=== PATIENT | female | born 1980 ===

== ENCOUNTER 2020-03-07 16:28 | Emergency (ER) | payer MEDICAID, SELFPAY ==
--- NOTE | 2020-03-07 | US_ITS ---
EXAMINATION: PELVIC ULTRASOUND CLINICAL INFORMATION: Heavy vaginal bleeding. COMPARISON: 11/26/2019 TECHNIQUE: Both transabdominal and endovaginal scanning was performed. FINDINGS: An anteverted uterus measures 9.7 x 3.9 x 4.5 cm. A regular homogeneous endometrium is seen measuring 0.5 cm. No uterine masses are present. Nabothian cysts are present in the cervix. The right ovary measures 3.1 x 2.8 x 3.8 cm for a volume of 17 mL and contains a 2.7 x 2.3 x 2.5 cm cyst. The left ovary measures 2.8 x 2.9 x 2.3 cm for a volume of 10 mL and contains a 1.9 x 1.6 x 2.0 cm cyst. No free intraperitoneal fluid is seen. IMPRESSION: Negative exam. Bilateral ovarian cysts.
[2020-03-07 16:55] VITALS: BP 131/47; PULSE 76; RESP 16; TEMP 36.7; O2SAT 98; BMI 41.3
--- NOTE | 2020-03-07 17:23 | ECG_ITS ---
Test Reason : BLEEDING Blood Pressure : / mmHG Vent. Rate : 081 BPM Atrial Rate : 081 BPM P-R Int : 174 ms QRS Dur : 074 ms QT Int : 398 ms P-R-T Axes : 021 059 048 degrees QTc Int : 462 ms Normal sinus rhythm with 1st degree A-V block Abnormal ECG When compared with ECG of 14-FEB-2019 21:07, Normal sinus rhythm with 1st degree A-V block is now Present Referred By: Alyssa Infante Electronically Signed By:CARY LEIVA
--- NOTE | 2020-03-07 17:30 | ED.FEMALEGU ---
HPI - Female Genitourinary General Chief complaint: Vaginal Bleeding <KARYNA Nguyen - Last Filed: 03/07/20 20:03> Stated complaint: VAGINAL BLEEDING/DIZZINESS <KARYNA Nguyen - Last Filed: 03/07/20 20:03> Time Seen by Provider: 03/07/20 17:22 <KARYNA Nguyen - Last Filed: 03/07/20 20:03> Source: patient <KARYNA Nguyen Last Filed: 03/07/20 20:03> Mode of arrival: ambulatory <KARYNA Nguyen Last Filed: 03/07/20 20:03> Limitations: no limitations <KARYNA Nguyen Last Filed: 03/07/20 20:03> History of Present Illness HPI Narrative: 40 yo female presenting with heavy vaginal bleeding during her menses for the last 2 months. She was getting her period regularly and now it is more frequent, more painful and heavier. Denies chance of . Reports dizziness at times and passing clots. <KARYNA Nguyen Last Filed: 03/07/20 20:03> Related Data Allergies/Adverse reactions: Allergies Allergy/AdvReac Type Severity Reaction Status Date / Time No Known Allergies Allergy Verified 03/07/20 16:54 [No Known Allergies*] <KARYNA Nguyen Last Filed: 03/07/20 20:03> Review of Systems Review of Systems: Constitutional: No Fever, No Chills ENT/Mouth: No sore throat, No Rhinorrhea, No Swallowing Difficulty Eyes: No Eye Pain, No Swelling, No Redness Cardiovascular: No Chest Pain or SOB, No Orthopnea, positive Edema Respiratory: No Cough, No Sputum, No Wheezing, positive dyspnea Gastrointestinal: No Nausea, No Vomiting, No Diarrhea, No abdominal Pain, No Hematochezia, No Melena Genitourinary: No Dysuria, No Urinary Frequency, No Hematuria, +heavy periods Musculoskeletal: No joint pain, No Myalgias Skin: No Skin Lesions, No rash Neuro: No Weakness, No Numbness, No Headache + occasional dizziness Psych: No Anxiety/Panic, No Depression Heme/Lymph: No Bruising, No Lymphadenopathy Endocrine: No Polyuria, No Polydipsia All other 10 point ROS are negative. <KARYNA Nguyen - Last Filed: 03/07/20 20:03> [facility] Past Medical History Medical History: Medical History (Updated 03/08/20 @ 00:01 by Crissy Hardy) Anemia Asthma delivery delivered Migraine <KARYNA Nguyen - Last Filed: 03/07/20 20:03> Surgical History: Surgical History (Updated 03/07/20 @ 17:01 by Dee Mccain) H/O tubal ligation <KARYNA Nguyen - Last Filed: 03/07/20 20:03> Social History Social History: Social History Alcohol intake: never Smoking Status: Current every day smoker Use of substances other than those prescribed or required for medical reasons: No Advance Directives: No Advance Directives Information Provided: No <KARYNA Nguyen - Last Filed: 03/07/20 20:03> Physical Exam Vital Signs and I&O and Narrative: Vital Signs and I&O: Vital Signs Temp 98.1 F 03/07/20 16:55 Pulse 77 03/07/20 19:46 Resp 16 03/07/20 19:46 BP 131/61 03/07/20 19:46 Pulse Ox 98 03/07/20 19:46 Intake & Output 03/07/20 03/07/20 03/08/20 06:59 18:59 06:59 Intake Total 1000 / 1000 Balance 1000 / 1000 Weight 92.986 kg Intake: Intake, IV Amoun t 1000 / 1000 0.9 % Sodium C hloride 1,000 ml 1000 / 1000 @ 999 mls/hr I VCONT .Q1H1M [facility] Rx#:[id number] Body Mass Index 41.3 Appearance: Alert. Oriented X3. No acute distress. Eyes: Pupils equal, round and reactive to light. ENT: Pharynx normal. Neck: Normal inspection. Neck supple. CVS: Normal heart rate and rhythm. Pulses normal. Respiratory: No respiratory distress. Breath sounds normal. Abdomen: Soft and nontender. exam deferred - patient declined Skin: Skin warm and dry. Normal skin color. Normal skin turgor. Extremities: No lower extremity edema. No lower extremity edema. Neuro: Oriented X 3. No motor deficit. No sensory deficit. <KARYNA Nguyen - Last Filed: 03/07/20 20:03> Vital Signs and I&O: Vital Signs Temp 98.1 F 03/07/20 16:55 Pulse 77 03/07/20 19:46 Resp 16 03/07/20 19:46 BP 131/61 03/07/20 19:46 Pulse Ox 98 03/07/20 19:46 Intake & Output 03/07/20 03/07/20 03/08/20 06:59 18:59 06:59 Intake Total 1000 / 1000 Balance 1000 / 1000 Weight 92.986 kg Intake: Intake, IV Amoun t 1000 / 1000 0.9 % Sodium C hloride 1,000 ml 1000 / 1000 @ 999 mls/hr I VCONT .Q1H1M [facility] Rx#:[id number] Body Mass Index 41.3 <William Fowler DO - Last Filed: 03/08/20 02:11> Course Course Hospital Course: patient presents with menorrhagia and occasional dizziness when standing. [facility] is in [place], has not seem in some time. No syncope, no vaginal discharge. Pelvic/TV U/S was normal H/H normal. EKG normal. Will refer patient to [facility] here. Stable for d/c <KARYNA Nguyen - Last Filed: 03/07/20 20:03> MDM - Female Genitourinary Differential Diagnosis Differential diagnosis: Likely urinary tract infection, ovarian cyst, cystitis and dysmenorrhea <KARYNA Nguyen - Last Filed: 03/07/20 20:03> Medical Records Attestation: I reviewed the patient's medical records. <KARYNA Nguyen - Last Filed: 03/07/20 20:03> Lab Data Attestation: I reviewed the patient's lab results. <KARYNA Nguyen - Last Filed: 03/07/20 20:03> Result diagrams: : 03/07/20 18:37 03/07/20 18:37 <KARYNA Nguyen - Last Filed: 03/07/20 20:03> Labs: Lab Results 03/07/20 03/07/20 03/07/20 Range/Units 18:37 18:37 18:37 WBC 6.7 (4.8-10.8) X10*3/uL RBC 3.85 L (4.20-5.50) X10*6/uL Hgb 12.2 (12.0-16.0) g/dl Hct 37.8 (37-47) % MCV 98.2 H (80-98) fL MCH 31.7 (27.0-33.0) pg MCHC 32.3 (31.0-35.0) g/dl RDW 13.3 (11.0-16.0) % Plt Count 232 (160-400) X10*3/uL MPV 11.2 (9.4-12.3) fL Immature Gran % (Auto) 0.6 H (0.0-0.4) % Neut % (Auto) 66.6 (45-73) % Lymph % (Auto) 23.6 (20-40) % [place] % (Auto) 6.8 (2-11) % Eos % (Auto) 2.1 (0-4) % Baso % (Auto) 0.3 (0-2) % Neut # (Auto) 4.5 (2.0-8.3) X10*3/uL Lymph # (Auto) 1.6 (1.2-4.9) X10*3/uL [place] # (Auto) 0.5 (0.1-1.2) X10*3/uL Eos # (Auto) 0.1 (0.0-0.4) X10*3/uL Baso # (Auto) 0.0 (0.0-0.2) X10*3/uL Abs Immat Gran (auto) 0.04 H (0.00-0.03) X10*3/uL Absolute Nucleated RBC 0.000 (0.0-0.012) X10*3/uL Nucleated RBC % (auto) 0.0 (0.0-0.2) /100WBC PT 10.7 L (10.8-13.0) SEC INR 0.9 (0.9-1.1) APTT 33.2 (24.1-38.0) SEC Sodium 139 (135-145) mmol/L Potassium 4.1 (3.3-5.1) mmol/l Chloride 108 (96-108) mmol/L Carbon Dioxide 24 (22-29) mmol/L Anion Gap 11 L (12-20) BUN 10 (9-16) mg/dL Creatinine 0.83 (0.5-1.4) mg/dL Estim Creat Clear Calc 88.0 Estimated GFR > 60 Random Glucose 106 (60-115) mg/dL Calcium 8.6 (8.4-10.2) mg/dL Total Bilirubin 0.2 (0.0-1.0) mg/dL Direct Bilirubin < 0.2 (0.0-0.5) mg/dL AST 11 (5-31) U/L ALT 16 (0-31) U/L Alkaline Phosphatase 63 (39-117) U/L Total Protein 6.5 (6.5-8.0) g/dL Albumin 3.8 (3.5-5.0) g/dL Beta HCG, Quant < 2 mIU/mL Blood Type Antibody Screen 03/07/20 Range/Units 18:37 WBC (4.8-10.8) X10*3/uL RBC (4.20-5.50) X10*6/uL Hgb (12.0-16.0) g/dl Hct (37-47) % MCV (80-98) fL MCH (27.0-33.0) pg MCHC (31.0-35.0) g/dl RDW (11.0-16.0) % Plt Count (160-400) X10*3/uL MPV (9.4-12.3) fL Immature Gran % (Auto) (0.0-0.4) % Neut % (Auto) (45-73) % Lymph % (Auto) (20-40) % [place] % (Auto) (2-11) % Eos % (Auto) (0-4) % Baso % (Auto) (0-2) % Neut # (Auto) (2.0-8.3) X10*3/uL Lymph # (Auto) (1.2-4.9) X10*3/uL [place] # (Auto) (0.1-1.2) X10*3/uL Eos # (Auto) (0.0-0.4) X10*3/uL Baso # (Auto) (0.0-0.2) X10*3/uL Abs Immat Gran (auto) (0.00-0.03) X10*3/uL Absolute Nucleated RBC (0.0-0.012) X10*3/uL Nucleated RBC % (auto) (0.0-0.2) /100WBC PT (10.8-13.0) SEC INR (0.9-1.1) APTT (24.1-38.0) SEC Sodium (135-145) mmol/L Potassium (3.3-5.1) mmol/l Chloride (96-108) mmol/L Carbon Dioxide (22-29) mmol/L Anion Gap (12-20) BUN (9-16) mg/dL Creatinine (0.5-1.4) mg/dL Estim Creat Clear Calc Estimated GFR Random Glucose (60-115) mg/dL Calcium (8.4-10.2) mg/dL Total Bilirubin (0.0-1.0) mg/dL Direct Bilirubin (0.0-0.5) mg/dL AST (5-31) U/L ALT (0-31) U/L Alkaline Phosphatase (39-117) U/L Total Protein (6.5-8.0) g/dL Albumin (3.5-5.0) g/dL Beta HCG, Quant mIU/mL Blood Type A Positive Antibody Screen NEGATIVE <KARYNA Nguyne - Last Filed: 03/07/20 20:03> Lab Results 03/07/20 03/07/20 03/07/20 Range/Units 18:37 18:37 18:37 WBC 6.7 (4.8-10.8) X10*3/uL RBC 3.85 L (4.20-5.50) X10*6/uL Hgb 12.2 (12.0-16.0) g/dl Hct 37.8 (37-47) % MCV 98.2 H (80-98) fL MCH 31.7 (27.0-33.0) pg MCHC 32.3 (31.0-35.0) g/dl RDW 13.3 (11.0-16.0) % Plt Count 232 (160-400) X10*3/uL MPV 11.2 (9.4-12.3) fL Immature Gran % (Auto) 0.6 H (0.0-0.4) % Neut % (Auto) 66.6 (45-73) % Lymph % (Auto) 23.6 (20-40) % [place] % (Auto) 6.8 (2-11) % Eos % (Auto) 2.1 (0-4) % Baso % (Auto) 0.3 (0-2) % Neut # (Auto) 4.5 (2.0-8.3) X10*3/uL Lymph # (Auto) 1.6 (1.2-4.9) X10*3/uL [place] # (Auto) 0.5 (0.1-1.2) X10*3/uL Eos # (Auto) 0.1 (0.0-0.4) X10*3/uL Baso # (Auto) 0.0 (0.0-0.2) X10*3/uL Abs Immat Gran (auto) 0.04 H (0.00-0.03) X10*3/uL Absolute Nucleated RBC 0.000 (0.0-0.012) X10*3/uL Nucleated RBC % (auto) 0.0 (0.0-0.2) /100WBC PT 10.7 L (10.8-13.0) SEC INR 0.9 (0.9-1.1) APTT 33.2 (24.1-38.0) SEC Sodium 139 (135-145) mmol/L Potassium 4.1 (3.3-5.1) mmol/l Chloride 108 (96-108) mmol/L Carbon Dioxide 24 (22-29) mmol/L Anion Gap 11 L (12-20) BUN 10 (9-16) mg/dL Creatinine 0.83 (0.5-1.4) mg/dL Estim Creat Clear Calc 88.0 Estimated GFR > 60 Random Glucose 106 (60-115) mg/dL Calcium 8.6 (8.4-10.2) mg/dL Total Bilirubin 0.2 (0.0-1.0) mg/dL Direct Bilirubin < 0.2 (0.0-0.5) mg/dL AST 11 (5-31) U/L ALT 16 (0-31) U/L Alkaline Phosphatase 63 (39-117) U/L Total Protein 6.5 (6.5-8.0) g/dL Albumin 3.8 (3.5-5.0) g/dL Beta HCG, Quant < 2 mIU/mL Blood Type Antibody Screen 03/07/20 Range/Units 18:37 WBC (4.8-10.8) X10*3/uL RBC (4.20-5.50) X10*6/uL Hgb (12.0-16.0) g/dl Hct (37-47) % MCV (80-98) fL MCH (27.0-33.0) pg MCHC (31.0-35.0) g/dl RDW (11.0-16.0) % Plt Count (160-400) X10*3/uL MPV (9.4-12.3) fL Immature Gran % (Auto) (0.0-0.4) % Neut % (Auto) (45-73) % Lymph % (Auto) (20-40) % [place] % (Auto) (2-11) % Eos % (Auto) (0-4) % Baso % (Auto) (0-2) % Neut # (Auto) (2.0-8.3) X10*3/uL Lymph # (Auto) (1.2-4.9) X10*3/uL [place] # (Auto) (0.1-1.2) X10*3/uL Eos # (Auto) (0.0-0.4) X10*3/uL Baso # (Auto) (0.0-0.2) X10*3/uL Abs Immat Gran (auto) (0.00-0.03) X10*3/uL Absolute Nucleated RBC (0.0-0.012) X10*3/uL Nucleated RBC % (auto) (0.0-0.2) /100WBC PT (10.8-13.0) SEC INR (0.9-1.1) APTT (24.1-38.0) SEC Sodium (135-145) mmol/L Potassium (3.3-5.1) mmol/l Chloride (96-108) mmol/L Carbon Dioxide (22-29) mmol/L Anion Gap (12-20) BUN (9-16) mg/dL Creatinine (0.5-1.4) mg/dL Estim Creat Clear Calc Estimated GFR Random Glucose (60-115) mg/dL Calcium (8.4-10.2) mg/dL Total Bilirubin (0.0-1.0) mg/dL Direct Bilirubin (0.0-0.5) mg/dL AST (5-31) U/L ALT (0-31) U/L Alkaline Phosphatase (39-117) U/L Total Protein (6.5-8.0) g/dL Albumin (3.5-5.0) g/dL Beta HCG, Quant mIU/mL Blood Type A Positive Antibody Screen NEGATIVE <William Fowler DO - Last Filed: 03/08/20 02:11> ECG Data Attestation: I personally reviewed and interpreted this ECG as follows: <KARYNA Nguyen - Last Filed: 03/07/20 20:03> ECG interpretation date: 03/07/20 <KARYNA Nguyen - Last Filed: 03/07/20 20:03> Interpretation: normal sinus rhythm, HR 81 bpm, normal axis, normal PA interval. <KARYNA Nguyen - Last Filed: 03/07/20 20:03> Discharge Plan Discharge Clinical Impression: Menometrorrhagia <KARYNA Nguyen - Last Filed: 03/07/20 20:03> Patient Disposition: Home, Self-Care <KARYNA Nguyen - Last Filed: 03/07/20 20:03> Instructions: Menorrhagia (ED) <KARYNA Ngyuen - Last Filed: 03/07/20 20:03> Additional Instructions: Come back to the ER if you develop chest pain, shortness of breath, fainting, or uncontrolled bleeding. <KARYNA Nguyen - Last Filed: 03/07/20 20:03> Referrals: Haresh Cheng MD [Physician] - 2 days <KARYNA Nguyen - Last Filed: 03/07/20 20:03> Interventions: ED Discharge Assessment Last Done: 03/07/20 20:44 <KARYNA Nguyen - Last Filed: 03/07/20 20:03> Discharge Date/Time: 03/07/20 20:44 <KARYNA Nguyen - Last Filed: 03/07/20 20:03>
[2020-03-07] MEDS: Ketorolac Tromethamine 30 MG/ML VIAL IVPUSH (17:45)
[2020-03-07] MEDS: 0.9 % Sodium Chloride 1,000 ML 999 ML IVCONT (17:45)
[2020-03-07 18:48] LABS: MANUAL DIFF FLAG NO
[2020-03-07 18:50] LABS: Basophils Percent Auto 0.3 % (0-2); Eosinophils Absolute Auto 0.1 X10*3/uL (0.0-0.4); Eosinophils Percent Auto 2.1 % (0-4); Hematocrit 37.8 % (37-47); Hemoglobin 12.2 g/dl (12.0-16.0); Imm Gran Abs Auto 0.04 X10*3/uL (0.00-0.03); Imm Gran Pct Auto 0.6 % (0.0-0.4); Lymphocytes Absolute Auto 1.6 X10*3/uL (1.2-4.9); Lymphocytes Percent Auto 23.6 % (20-40); Mean Corpuscular HGB Conc 32.3 g/dl (31.0-35.0); Mean Corpuscular Hemoglobin 31.7 pg (27.0-33.0); Mean Corpuscular Volume 98.2 fL (80-98); Mean Platelet Volume 11.2 fL (9.4-12.3); Monocytes Absolute Auto 0.5 X10*3/uL (0.1-1.2); Monocytes Percent Auto 6.8 % (2-11); Neutrophils Absolute Auto 4.5 X10*3/uL (2.0-8.3); Neutrophils Percent Auto 66.6 % (45-73); Platelet Count 232 X10*3/uL (160-400); Red Blood Count 3.85 X10*6/uL (4.20-5.50); Red Cell Distribution Width 13.3 % (11.0-16.0); White Blood Count 6.7 X10*3/uL (4.8-10.8)
[2020-03-07 18:55] LABS: INTERNATIONAL NORM RATIO 0.9 (0.9-1.1); Prothrombin Time 10.7 SEC (10.8-13.0)
[2020-03-07 18:58] LABS: Partial Thromboplastin Time 33.2 SEC (24.1-38.0)
--- NOTE | 2020-03-07 18:59 | PC.NURSE ---
REPORT TAKEN FROM DEJA RAMAN, [facility]O CONTACT WITH PT. SITTING UP IN BED SKIN PWD RESPIRATIONS EVEN UNLABORED. RESULTS RECEIEVED. AWAITING MD REEVAL. AWARE OF PLAN OF CARE.
[2020-03-07 19:11] LABS: Alanine Aminotransferase 16 U/L (0-31); Albumin Level 3.8 g/dL (3.5-5.0); Aspartate Amino Transferase 11 U/L (5-31); Bilirubin Direct < 0.2 mg/dL (0.0-0.5); Bilirubin Total 0.2 mg/dL (0.0-1.0); Blood Urea Nitrogen 10 mg/dL (9-16); Chloride 108 mmol/L (96-108); Estimated Glomerular Filt Rate > 60; Potassium 4.1 mmol/l (3.3-5.1); Sodium 139 mmol/L (135-145); Total Protein 6.5 g/dL (6.5-8.0)
[2020-03-07 19:17] LABS: HCG Quantitative < 2 mIU/mL
[2020-03-07 19:46] VITALS: BP 131/61; PULSE 77; RESP 16; O2SAT 98
[2020-03-07 19:52] LABS: Alkaline Phosphatase 63 U/L (39-117); Anion Gap 11 (12-20); Calcium 8.6 mg/dL (8.4-10.2); Carbon Dioxide 24 mmol/L (22-29); Glucose Random 106 mg/dL (60-115)
== END 2020-03-07 20:44 | disposition home or self-care (01) ==
PROVIDERS: Physician Assistant; Emergency Provider Emergency Medicine
DX: N92.1 Excessive and frequent menstruation with irregular cycle (principal); R42 Dizziness and giddiness; F17.200 Nicotine dependence, unspecified, uncomplicated; Z71.6 Tobacco abuse counseling
CPT/HCPCS: 36415; 76830; 76856; 80048; 80076; 84702; 85025; 85610; 85730; 86850; 86900; 86901; 93005; 93010; 96361; 96374; 99284; J1885

== ENCOUNTER 2020-06-14 00:49 | Emergency (ER) | payer MEDICAID, SELFPAY ==
[2020-06-14 02:18] VITALS: BP 144/60; PULSE 80; RESP 16; TEMP 36.8; O2SAT 99; BMI 41.3
[2020-06-14 04:00] VITALS: BP 130/77; PULSE 81; RESP 20; TEMP 36.7; O2SAT 99
[2020-06-14 06:00] VITALS: PULSE 75; O2SAT 99
[2020-06-14] MEDS: Meclizine HCl 25 MG TABLET PO (06:44)
--- NOTE | 2020-06-14 08:16 | ED.GENADULT ---
HPI - General Adult General Chief complaint: General Medical Stated complaint: DIZZY/ANXIETY Time Seen by Provider: 06/14/20 06:07 Source: patient Mode of arrival: ambulatory Limitations: no limitations History of Present Illness HPI narrative: 40-year-old female who presents emergency department for evaluation of dizziness. The patient states that she had a sudden onset of dizziness that started yesterday at 8:00 p.m.. She states that the dizziness had a lightheaded component to it as well as a room spinning component. She states that the dizziness was worse with head movement. She had associated nausea but no vomiting. She states she had associated dry mouth. She denied headache, numbness, weakness, nausea or vomiting associated with the dizziness. She denied chest pain, shortness of breath or dyspnea on exertion. She states that she has had similar presentations in the past. Related Data Previous Rx's Medication Instructions Recorded meclizine 25 mg PO TID PRN #20 tab 06/14/20 Allergies Allergy/AdvReac Type Severity Reaction Status Date / Time No Known Allergies Allergy Verified 03/07/20 16:54 [No Known Allergies*] Review of Systems Review of Systems: Yes all other systems are reviewed and are negative Neurologic: Reports Abnormal speech present [facility] Past Medical History Medical History Anemia Asthma delivery delivered Migraine Surgical History H/O tubal ligation Social History Social History Alcohol intake: never Smoking Status: Current every day smoker Smoked in Last 30 Days: No Use of substances other than those prescribed or required for medical reasons: No Advance Directives: No Physical Exam Vital Signs: Vital Signs: Last Vital Signs Temp 98.0 F 06/14/20 04:00 Pulse 75 06/14/20 06:00 Resp 20 06/14/20 04:00 BP 130/77 06/14/20 04:00 Pulse Ox 99 06/14/20 06:00 Body Mass Index 41.3 Const: General: cooperative and healthy appearing Nutritional Appearance: obese Orientation/consciousness: oriented to person and oriented to place Limitations: no limitations HENMT: Head: Yes normal to inspection, Yes normocephalic and Yes atraumatic Ears: external ears normal General nose exam: Normal external nose present Face and sinus: Yes normal facial exam Mouth: Normal oral and palatal mucosa present Throat: Yes posterior oropharynx normal Eyes: Periorbital: periorbital findings normal Eyelids: Yes eyelids normal Conjunctivae: conjunctivae normal Sclerae: sclerae normal Corneas: corneas normal Pupils: Equal, round and reactive pupils present Direct Ophthalmoscopy: normal light reflex Neck: Neck: Yes full ROM, Yes no lymphadenopathy, Yes no meningeal signs, Yes trachea midline and Yes supple Chest: Chest palpation & inspection: normal inspection of the chest and normal palpation of entire chest wall Resp: Effort & Inspection: normal respiratory effort and able to speak in complete sentences Auscultation: clear to auscultation bilaterally Cardio: Rate: regular rate Rhythm: regular rhythm Heart sounds: S1 normal heart sound present, S2 normal heart sound present and no murmurs GI: Inspection: Yes normal to inspection Palpation (GI): Soft to palpation, nontender, no guarding, not rigid and No hepatosplenomegaly present : General: Yes no CVA tenderness Back/Spine/Pelvis: Back: no CVA tenderness Cervical Spine: normal cervical lordosis Thoracic/Lumbar Spine: thoracic and lumbar spine normal to inspection Skin: Lesions: no lesions Rashes: no rashes Wounds: no wounds Neuro: General: oriented to person, oriented to place and no meningeal signs Cranial nerves: Yes CN's II-XII intact bilaterally and Yes Equal, round and reactive pupils present Cognition (Neuro): normal cognition Speech: Abnormal speech present Motor exam (neuro): 5/5 motor strength present throughout Extrem: General: Yes normal to inspection and Yes full ROM Psych: Appearance: well kempt Mental Status: mental status grossly normal Speech and movement: Normal speech and movement present Affect: normal affect Attitude: cooperative Thought process: Normal thought process present Thought content: Normal thought content present Course Course Course Narrative: 40-year-old female who presents emergency department for evaluation dizziness which began yesterday at 8:00 p.m.. The patient's description of the dizziness is consistent with positional vertigo. Examination was unremarkable. The patient was given meclizine 25 mg orally with some improvement of her symptoms. She was discharged home with a prescription for meclizine 3 times a day as needed for dizziness. She was given printed instructions and is reviewed with her prior to her discharge. She was advised to follow up with doctor in 2 days for re-evaluation and return to the emergency department for symptoms get worse or stroke new symptoms that were concerning to her. Prior to discharge she developed a headache and was given Tylenol 975 mg orally. Discharge Plan Discharge Clinical Impression: Vertigo Patient Disposition: Home, Self-Care Instructions: Benign Paroxysmal Positional Vertigo (ED) Prescriptions: New meclizine 25 mg tablet 25 mg PO TID PRN (Reason: dizziness) Qty: 20 RF: 0
== END 2020-06-14 08:38 | disposition home or self-care (01) ==
PROVIDERS: Emergency Provider Emergency Medicine Emergency Medical Services
DX: H81.10 Benign paroxysmal vertigo, unspecified ear (principal); F17.200 Nicotine dependence, unspecified, uncomplicated
CPT/HCPCS: 99283; 99284

== ENCOUNTER 2020-11-22 20:04 | Emergency (ER) | payer MEDICAID, SELFPAY ==
--- NOTE | ~2020-11-22 | CT_ITS ---
EXAMINATION: CT SOFT TISSUE NECK WITH CONTRAST CLINICAL INFORMATION: Inability to swallow food, no fevers/chills, every day smoke COMPARISON: None. TECHNIQUE: Following the intravenous administration of 60 mL of Omnipaque 350 intravenous contrast, helical imaging was performed in the axial plane with generation of coronal and sagittal reformatted images. This CT examination was performed using dose optimization techniques as appropriate, variously including the following: *Automated exposure control *Adjustment of mA and/or kV according to patient size (this includes techniques or standardized protocols for targeted exams where dose is matched to indication/reason for exam; i.e. extremities or head) *Use of iterative reconstruction technique DLP: 1133 mGy-cm FINDINGS: No cervical adenopathy is identified. The parotid glands are homogeneous in attenuation. The submandibular glands are normal. No contour abnormality or pathologic enhancement is seen within the oral cavity or pharyngeal mucosal space. The laryngeal structures are normal. The parapharyngeal fat is preserved. The carotid sheath vasculature opacify normally. No extra mucosal soft tissue mass or fluid collection is seen. No retropharyngeal fluid collection is seen. The thyroid gland is normal. The superior mediastinum is unremarkable. The lung apices are clear. The mastoid air cells and visualized portions of the paranasal sinuses are well-aerated. The temporomandibular joints are normal. Degenerative disc height narrowing and vertebral endplate spurring at CT 6 C7. No acute osseous abnormality. The imaged portions of the brain parenchyma are unremarkable. CT/CT soft tissue neck w con IMPRESSION: Normal CT soft tissues of neck.
[2020-11-22 20:27] VITALS: BP 134/76; PULSE 72; RESP 16; TEMP 37.4; O2SAT 98; BMI 43.0
--- NOTE | 2020-11-22 22:37 | ED.GENADULT ---
HPI - General Adult General Chief complaint: Skin/Abscess/Foreign Body Stated complaint: food in throat? Time Seen by Provider: 11/22/20 22:34 Source: patient Mode of arrival: ambulatory History of Present Illness HPI narrative: 40-year-old female, current every day smoker, who presents with 3 days of inability to swallow solid food and states that whenever she eats it feels like it gets stuck and then she has to vomit. She states she has been able to drink fluids without difficulty and denies any associated fever, chills, shortness of breath, chest pain/palpitations, sore throat, GI symptoms or symptoms. Related Data Previous Rx's Medication Instructions Recorded meclizine 25 mg PO TID PRN #20 tab 06/14/20 Allergies Allergy/AdvReac Type Severity Reaction Status Date / Time No Known Allergies Allergy Verified 03/07/20 16:54 [No Known Allergies*] Review of Systems Review of Systems: Pertinent positives and negatives as stated in HPI 10 point review of systems is otherwise negative. [facility] Past Medical History Source: nursing notes reviewed Medical History Anemia Asthma delivery delivered Migraine Surgical History H/O tubal ligation Social History Social History Alcohol intake: never Advance Directives: No Advance Directives Information Provided: Yes Patient : No Physical Exam Vital Signs: Vital Signs: Last Vital Signs Temp 99.4 F 11/22/20 20:27 Pulse 78 11/23/20 00:07 Resp 20 11/23/20 00:07 BP 96/59 L 11/23/20 00:07 Pulse Ox 98 11/23/20 00:07 Body Mass Index 43.0 VITAL SIGNS: Reviewed. GENERAL: Well developed, well nourished, in no acute distress. HEAD: Normocephalic/atraumatic, EYES: PERRLA, EOMI OROPHARYNX: no oral lesions noted, posterior pharynx clear and non-erythematous without noted tonsillar enlargement/erythema/exudates no unilateral elevation noted NECK: Supple, no adenopathy LUNGS: Normal breath sounds. No adventitious sounds or accessory muscle use. SpO2<98> CARDIOVASCULAR: Regular rate and rhythm without noted murmurs ABDOMEN: Soft, non-tender, non-distended with bowel sounds. NEUROLOGIC: Alert and oriented x 4. Course Course Course Narrative: 40-year-old female with history and clinical presentation suggestive of possible irritation from acid reflux and less likely peritonsillar abscess or retropharyngeal collection no evidence to suggest tonsillitis. On review of all investigations, all results were discussed with the patient at bedside and she was discharged home in stable condition with instructions to follow-up with her primary care provider and discuss a referral to Gastroenterology. Medical Decision Making Lab Data Result diagrams: 11/22/20 22:52 11/22/20 22:52 Labs: Lab Results 11/22/20 11/22/20 11/22/20 Range/Units 22:52 22:52 23:00 WBC 6.9 (4.8-10.8) X10*3/uL RBC 3.98 L (4.20-5.50) X10*6/uL Hgb 12.4 (12.0-16.0) g/dl Hct 37.4 (37-47) % MCV 94.0 (80-98) fL MCH 31.2 (27.0-33.0) pg MCHC 33.2 (31.0-35.0) g/dl RDW 13.5 (11.0-16.0) % Plt Count 216 (160-400) X10*3/uL MPV 10.0 (9.4-12.3) fL Immature Gran % (Auto) 0.1 (0.0-0.4) % Neut % (Auto) 54.9 (45-73) % Lymph % (Auto) 35.2 (20-40) % [place] % (Auto) 7.5 (2-11) % Eos % (Auto) 2.0 (0-4) % Baso % (Auto) 0.3 (0-2) % Lymph # (Auto) 2.4 (1.2-4.9) X10*3/uL [place] # (Auto) 0.5 (0.1-1.2) X10*3/uL Eos # (Auto) 0.1 (0.0-0.4) X10*3/uL Baso # (Auto) 0.0 (0.0-0.2) X10*3/uL Abs Immat Gran (auto) 0.01 (0.00-0.03) X10*3/uL Absolute Neuts (auto) 3.8 (2.0-8.3) X10*3/uL Absolute Nucleated RBC 0.000 (0.0-0.012) X10*3/uL Nucleated RBC % (auto) 0.0 (0.0-0.2) /100WBC Sodium 137 (135-145) mmol/L Potassium 4.5 (3.3-5.1) mmol/L Chloride 104 (96-108) mmol/L Carbon Dioxide 25 (22-29) mmol/L Anion Gap 13 (12-20) BUN 9 (9-16) mg/dL Creatinine 0.82 (0.5-1.4) mg/dL Estim Creat Clear Calc 91.0 Estimated GFR > 60 Random Glucose 106 (60-115) mg/dL Calcium 8.9 (8.4-10.2) mg/dL Total Bilirubin 0.4 (0.0-1.0) mg/dL AST 12 (5-31) U/L ALT 12 (0-31) U/L Alkaline Phosphatase 65 (39-117) U/L Total Protein 6.8 (6.5-8.0) g/dL Albumin 3.9 (3.5-5.0) g/dL Urine Color YELLOW Urine Appearance CLEAR Urine pH 6.0 (5.0-8.0) Ur Specific [place] 1.020 (1.005-1.025) Urine Protein NEG (NEG-TRACE) MG/DL Urine Glucose (UA) NEG (NEG) MG/DL Urine Ketones NEG (NEG) MG/DL Urine Blood NEG (NEG) Urine Nitrite NEG (NEG) Ur Leukocyte Esterase NEG (NEG) Urine Test (NEGATIVE) 11/22/20 Range/Units 23:00 WBC (4.8-10.8) X10*3/uL RBC (4.20-5.50) X10*6/uL Hgb (12.0-16.0) g/dl Hct (37-47) % MCV (80-98) fL MCH (27.0-33.0) pg MCHC (31.0-35.0) g/dl RDW (11.0-16.0) % Plt Count (160-400) X10*3/uL MPV (9.4-12.3) fL Immature Gran % (Auto) (0.0-0.4) % Neut % (Auto) (45-73) % Lymph % (Auto) (20-40) % [place] % (Auto) (2-11) % Eos % (Auto) (0-4) % Baso % (Auto) (0-2) % Lymph # (Auto) (1.2-4.9) X10*3/uL [place] # (Auto) (0.1-1.2) X10*3/uL Eos # (Auto) (0.0-0.4) X10*3/uL Baso # (Auto) (0.0-0.2) X10*3/uL Abs Immat Gran (auto) (0.00-0.03) X10*3/uL Absolute Neuts (auto) (2.0-8.3) X10*3/uL Absolute Nucleated RBC (0.0-0.012) X10*3/uL Nucleated RBC % (auto) (0.0-0.2) /100WBC Sodium (135-145) mmol/L Potassium (3.3-5.1) mmol/L Chloride (96-108) mmol/L Carbon Dioxide (22-29) mmol/L Anion Gap (12-20) BUN (9-16) mg/dL Creatinine (0.5-1.4) mg/dL Estim Creat Clear Calc Estimated GFR Random Glucose (60-115) mg/dL Calcium (8.4-10.2) mg/dL Total Bilirubin (0.0-1.0) mg/dL AST (5-31) U/L ALT (0-31) U/L Alkaline Phosphatase (39-117) U/L Total Protein (6.5-8.0) g/dL Albumin (3.5-5.0) g/dL Urine Color Urine Appearance Urine pH (5.0-8.0) Ur Specific [place] (1.005-1.025) Urine Protein (NEG-TRACE) MG/DL Urine Glucose (UA) (NEG) MG/DL Urine Ketones (NEG) MG/DL Urine Blood (NEG) Urine Nitrite (NEG) Ur Leukocyte Esterase (NEG) Urine Test NEGATIVE (NEGATIVE) Discharge Plan Discharge Clinical Impression: Dysphagia Patient Disposition: Home, Self-Care Instructions: Dysphagia (ED) Additional Instructions: Follow-up with your primary care provider in the next 2-3 days for re-evaluation and discussion regarding possible referral to Gastroenterology for evaluation. Prescriptions: No Action meclizine 25 mg tablet 25 mg PO TID PRN (Reason: dizziness) Qty: 20 RF: 0 Referrals: Physician,Nonstaff [Primary Care Provider] - 2 days
--- NOTE | 2020-11-22 22:52 | PC.NURSE ---
IV established, labs obtained. Pt aware of plan for CT.
[2020-11-22 22:59] LABS: Basophils Percent Auto 0.3 % (0-2); Eosinophils Absolute Auto 0.1 X10*3/uL (0.0-0.4); Hematocrit 37.4 % (37-47); Hemoglobin 12.4 g/dl (12.0-16.0); Imm Gran Abs Auto 0.01 X10*3/uL (0.00-0.03); Imm Gran Pct Auto 0.1 % (0.0-0.4); Lymphocytes Absolute Auto 2.4 X10*3/uL (1.2-4.9); Lymphocytes Percent Auto 35.2 % (20-40); MANUAL DIFF FLAG NO; Mean Corpuscular HGB Conc 33.2 g/dl (31.0-35.0); Mean Corpuscular Hemoglobin 31.2 pg (27.0-33.0); Monocytes Absolute Auto 0.5 X10*3/uL (0.1-1.2); Monocytes Percent Auto 7.5 % (2-11); Neutrophils Absolute Auto 3.8 X10*3/uL (2.0-8.3); Neutrophils Percent Auto 54.9 % (45-73); Platelet Count 216 X10*3/uL (160-400); Red Blood Count 3.98 X10*6/uL (4.20-5.50); Red Cell Distribution Width 13.5 % (11.0-16.0); White Blood Count 6.9 X10*3/uL (4.8-10.8)
--- NOTE | 2020-11-22 23:16 | PC.NURSE ---
UA obtained and sent by emg technician.
[2020-11-22 23:23] LABS: Glucose Urine UA NEG (NEG); Leukocyte Esterase Urine NEG (NEG); Nitrite Urine NEG (NEG); Urine Blood NEG (NEG); Urine Ketones NEG (NEG); Urine Protein NEG (NEG-TRACE)
[2020-11-22 23:24] LABS: Color Urine YELLOW
[2020-11-22 23:25] LABS: Appearance Urine CLEAR
[2020-11-22 23:26] LABS: UPreg QC Valid YES; Urine Pregnancy NEGATIVE (NEGATIVE)
[2020-11-22 23:38] LABS: Alanine Aminotransferase 12 U/L (0-31); Albumin Level 3.9 g/dL (3.5-5.0); Alkaline Phosphatase 65 U/L (39-117); Anion Gap 13 (12-20); Aspartate Amino Transferase 12 U/L (5-31); Bilirubin Total 0.4 mg/dL (0.0-1.0); Blood Urea Nitrogen 9 mg/dL (9-16); Calcium 8.9 mg/dL (8.4-10.2); Carbon Dioxide 25 mmol/L (22-29); Chloride 104 mmol/L (96-108); Estimated Glomerular Filt Rate > 60; Glucose Random 106 mg/dL (60-115); Potassium 4.5 mmol/L (3.3-5.1); Sodium 137 mmol/L (135-145); Total Protein 6.8 g/dL (6.5-8.0)
[2020-11-22] MEDS: iohexoL 350 MG/ML 100 ML INFUS..BTL 60 ML IV (23:58)
[2020-11-23 00:07] VITALS: BP 96/59; PULSE 78; RESP 20; O2SAT 98
--- NOTE | 2020-11-23 00:39 | PC.NURSE ---
at bedside discussing CT results and plan for f/u.
== END 2020-11-23 00:44 | disposition home or self-care (01) ==
PROVIDERS: Emergency Provider Student in an Organized Health Care Education/Training Program
DX: R13.10 Dysphagia, unspecified (principal); J45.909 Unspecified asthma, uncomplicated; F17.200 Nicotine dependence, unspecified, uncomplicated
CPT/HCPCS: 36415; 70491; 80053; 81003; 81025; 85025; 99284; Q9967

== ENCOUNTER 2021-08-20 20:22 | Emergency (ER) | payer MEDICAID, SELFPAY ==
--- NOTE | 2021-08-20 08:17 | ECG_ITS ---
Test Reason : weakness Blood Pressure : / mmHG Vent. Rate : 062 BPM Atrial Rate : 062 BPM P-R Int : 146 ms QRS Dur : 074 ms QT Int : 432 ms P-R-T Axes : 012 055 041 degrees QTc Int : 438 ms Normal sinus rhythm Normal ECG When compared with ECG of 20-AUG-2021 22:14, T wave amplitude has increased in Anterior leads Referred By: Leeann Estrada Electronically Signed By:JAVIER BRYANT
[2021-08-20 21:27] VITALS: PULSE 67; RESP 18; TEMP 36.4; O2SAT 98; BMI 41.3
--- NOTE | 2021-08-20 21:32 | ECG_ITS ---
Test Reason : WEAKNESS Blood Pressure : / mmHG Vent. Rate : 073 BPM Atrial Rate : 073 BPM P-R Int : 134 ms QRS Dur : 078 ms QT Int : 404 ms P-R-T Axes : 027 046 051 degrees QTc Int : 445 ms Normal sinus rhythm Normal ECG When compared with ECG of 07-MAR-2020 18:25, OK interval has decreased Referred By: Generic ED Physician Electronically Signed By:JAVIER BRYANT
[2021-08-20 22:31] LABS: Basophils Percent Auto 0.3 % (0-2); Eosinophils Absolute Auto 0.2 X10*3/uL (0.0-0.4); Eosinophils Percent Auto 2.2 % (0-4); Hematocrit 40.4 % (37.0-47.0); Hemoglobin 12.8 g/dl (12.0-16.0); Imm Gran Abs Auto 0.03 X10*3/uL (0.00-0.03); Imm Gran Pct Auto 0.4 % (0.0-0.4); Lymphocytes Absolute Auto 2.2 X10*3/uL (1.2-4.9); Lymphocytes Percent Auto 29.3 % (20-40); MANUAL DIFF FLAG NO; Mean Corpuscular HGB Conc 31.7 g/dl (31.0-35.0); Mean Corpuscular Hemoglobin 30.5 pg (27.0-33.0); Mean Corpuscular Volume 96.4 fL (80.0-98.0); Mean Platelet Volume 10.2 fL (9.4-12.3); Monocytes Absolute Auto 0.3 X10*3/uL (0.1-1.2); Monocytes Percent Auto 4.5 % (2-11); Neutrophils Absolute Auto 4.7 x10*3/uL (2.0-8.3); Neutrophils Percent Auto 63.3 % (45-73); Platelet Count 232 X10*3/uL (160-400); Red Blood Count 4.19 X10*6/uL (4.20-5.50); Red Cell Distribution Width 13.6 % (11.0-16.0); White Blood Count 7.4 X10*3/uL (4.8-10.8)
[2021-08-20 22:44] LABS: Anion Gap 13 (12-20); Blood Urea Nitrogen 6 mg/dL (9-16); Carbon Dioxide 23 mmol/L (22-29); Chloride 105 mmol/L (96-108); Creatinine Clr Calc Pharmacy 91.5; Estimated Glomerular Filt Rate > 60; Glucose Random 137 mg/dL (60-115); Potassium 4.2 mmol/L (3.3-5.1); Sodium 137 mmol/L (135-145)
[2021-08-20 22:51] LABS: Troponin-I High Sensitivity < 3.5 ng/L (<3.5-17.0)
[2021-08-21 01:24] VITALS: BP 109/58; PULSE 84; RESP 16; TEMP 36.7; O2SAT 99
[2021-08-21 02:32] VITALS: BP 100/52; PULSE 76; RESP 17; O2SAT 99
[2021-08-21 02:34] VITALS: BP 119/59; PULSE 80; RESP 17; O2SAT 98
[2021-08-21 02:36] VITALS: BP 116/65; PULSE 73; RESP 17; O2SAT 99
--- NOTE | 2021-08-21 02:39 | ED_ITS ---
HPI - General Adult General Chief complaint: Weakness Stated complaint: feeling faint , lightheaded, nausea Time Seen by Provider: 08/21/21 01:45 Source: patient Mode of arrival: ambulatory History of Present Illness HPI narrative: 41-year-old female with presentation for feeling lightheaded with room spinning for the past couple of days, transient in nature and associated with some nausea. Patient does endorse that the only change she can think of is that she received her 1st Trulicity shot on Tuesday. Otherwise she denies any fever, chills, chest pain/palpitations, shortness of breath, diarrhea or urinary pain/burning/frequency. Related Data Previous Rx's Medication Instructions Recorded meclizine 25 mg tablet 25 mg PO TID PRN #20 tab 06/14/20 Allergies Allergy/AdvReac Type Severity Reaction Status Date / Time No Known Allergies Allergy Verified 08/20/21 21:27 [No Known Allergies*] Review of Systems Review of Systems: Pertinent positives and negatives as stated in HPI 10 point review systems is otherwise negative. PMFSH Past Medical History Source: nursing notes reviewed Medical History Anemia Asthma delivery delivered Migraine Surgical History H/O tubal ligation Social History Social History Alcohol intake: current Patient Tobacco Use Status: Never used Tobacco Use of substances other than those prescribed or required for medical reasons: No Advance Directives: No Patient : No Physical Exam ED Vital Signs: Vital Signs - 24 hr 08/20/21 21:27 08/21/21 01:24 08/21/21 02:32 Temperature 97.5 F 98.0 F Pulse Rate 67 84 76 Respiratory Rate 18 16 17 Blood Pressure 109/58 L 100/52 L Pulse Oximetry 98 99 99 08/21/21 02:34 08/21/21 02:36 Temperature Pulse Rate 80 73 Respiratory Rate 17 17 Blood Pressure 119/59 L 116/65 Pulse Oximetry 98 99 BMI result Body Mass Index 41.3 VITAL SIGNS: Reviewed. GENERAL: Well developed, well nourished, in no acute distress. HEAD: Normocephalic/atraumatic EYES: PERRLA, EOMI EARS: Ext canals without abnormality OROPHARYNX: no oral lesions noted, posterior pharynx clear LUNGS: Normal breath sounds. No adventitious sounds or accessory muscle use. SpO2<98> CARDIOVASCULAR: Regular rate and rhythm without noted murmurs ABDOMEN: Soft, non-tender, non-distended with bowel sounds. MUSCULOSKELETAL: No tenderness, deformities, or effusions noted on gross inspection. EXTREMITIES: No cyanosis, clubbing or edema. SKIN: Inspection of the skin reveals no rashes NEUROLOGIC: Alert and oriented x 4. Strength and sensation to light touch were grossly intact x 4, no facial asymmetry, no pronator drift, cranial nerves 2-12 grossly intact, cerebellar testing is without deficit. Course Course Course Narrative: 41-year-old female with history and clinical presentation suggestive of possible recurrence of her vertigo, on review of all investigations there are no acute findings and orthostatics are within normal limits. Review of all investigations negative for acute findings to better explain patient's presentation, orthostatics are within normal limits, patient was provided with meclizine and reports improvement after receiving the medication. She was encouraged to follow-up with a primary care provider for further evalu ation. Medical Decision Making Lab Data Result diagrams: 08/20/21 22:25 08/20/21 22:25 Labs: Lab Results 08/20/21 08/20/21 08/20/21 Range/Units 22:25 22:25 22:25 WBC 7.4 (4.8-10.8) X10*3/uL RBC 4.19 L (4.20-5.50) X10*6/uL Hgb 12.8 (12.0-16.0) g/dl Hct 40.4 (37.0-47.0) % MCV 96.4 (80.0-98.0) fL MCH 30.5 (27.0-33.0) pg MCHC 31.7 (31.0-35.0) g/dl RDW 13.6 (11.0-16.0) % Plt Count 232 (160-400) X10*3/uL MPV 10.2 (9.4-12.3) fL Immature Gran % (Auto) 0.4 (0.0-0.4) % Neut % (Auto) 63.3 (45-73) % Lymph % (Auto) 29.3 (20-40) % [place] % (Auto) 4.5 (2-11) % Eos % (Auto) 2.2 (0-4) % Baso % (Auto) 0.3 (0-2) % Lymph # (Auto) 2.2 (1.2-4.9) X10*3/uL [place] # (Auto) 0.3 (0.1-1.2) X10*3/uL Eos # (Auto) 0.2 (0.0-0.4) X10*3/uL Baso # (Auto) 0.0 (0.0-0.2) X10*3/uL Abs Immat Gran (auto) 0.03 (0.00-0.03) X10*3/uL Absolute Neuts (auto) 4.7 (2.0-8.3) x10*3/uL Absolute Nucleated RBC 0.000 (0.0-0.012) X10*3/uL Nucleated RBC % (auto) 0.0 (0.0-0.2) /100WBC Sodium 137 (135-145) mmol/L Potassium 4.2 (3.3-5.1) mmol/L Chloride 105 (96-108) mmol/L Carbon Dioxide 23 (22-29) mmol/L Anion Gap 13 (12-20) BUN 6 L (9-16) mg/dL Creatinine 0.79 (0.5-1.4) mg/dL Estim Creat Clear Calc 91.5 Estimated GFR > 60 Random Glucose 137 H (60-115) mg/dL Calcium 9.0 (8.4-10.2) mg/dL Troponin I High Sens < 3.5 (<3.5-17.0) ng/L ECG Data Attestation: I personally reviewed and interpreted this ECG as follows: Prior ECG tracings: available for review Interpretation: Normal sinus rhythm, HR-62, no STEMI, IN/QRS/QTC are within normal limits. Discharge Plan Discharge Clinical Impression: Vertigo Patient Disposition: Home, Self-Care Instructions: Vertigo (ED) Additional Instructions: 1. Follow-up with your primary care provider in the next 1-2 days for re-dennis luation further outpatient management. Return to the ER for worsening symptoms. Prescriptions: No Action meclizine 25 mg tablet 25 mg PO TID PRN (Reason: dizziness) Qty: 20 0RF
[2021-08-21] MEDS: Meclizine HCl 25 MG TABLET PO (04:03)
--- NOTE | 2021-08-21 04:08 | PC.NURSE ---
I assumed nursing care of this pt upon her arrival to bed 13. She presents seeking evaluation for lightheadedness and near-syncope and dizziness. She has remained alert, oriented x 3, calm and cooperative, makes eye contact with Rn. She ambulated into room 13 independently and with steady gait. Respirations are non-labored, speech clear and appropriate, no cyanosis, speaks in full sentences. No chest pain. She denies nausea/vomiting/change in bowel or bladder habits. The pt has been encouraged to provide a urine sample multiple times. She verbalizes an understanding of this and insists I can't pee right now but when I can I will.' Will continue to monitor.
== END 2021-08-21 05:16 | disposition home or self-care (01) ==
PROVIDERS: Emergency Provider Student in an Organized Health Care Education/Training Program
DX: R42 Dizziness and giddiness (principal)
CPT/HCPCS: 36415; 80048; 84484; 85025; 93005; 99284

== ENCOUNTER 2021-12-24 14:56 | Emergency (ER) | payer MEDICAID, SELFPAY ==
--- NOTE | 2021-12-24 | ECG_ITS ---
Test Reason : CHEST PAIN Blood Pressure : / mmHG Vent. Rate : 074 BPM Atrial Rate : 074 BPM P-R Int : 160 ms QRS Dur : 070 ms QT Int : 398 ms P-R-T Axes : 011 045 040 degrees QTc Int : 441 ms Normal sinus rhythm Normal ECG When compared with ECG of 21-AUG-2021 02:23, No significant change was found Referred By: Generic ED Physician Electronically Signed By:Umesh Skaggs
--- NOTE | ~2021-12-24 | XR_ITS ---
EXAMINATION: XR CHEST CLINICAL INFORMATION: Shortness of breath. Wheezing. COMPARISON: Chest x-ray 02/14/2019 TECHNIQUE: Frontal view of the chest was obtained. 5:10 PM FINDINGS: No significant abnormality is noted involving the heart, lungs, mediastinum, bony thorax or soft tissues. XR/XR chest 1V IMPRESSION: Unremarkable examination.
[2021-12-24 15:58] VITALS: BP 115/56; PULSE 70; RESP 18; TEMP 36.7; O2SAT 98; BMI 41.6
--- NOTE | 2021-12-24 17:39 | ED.SOB ---
HPI - SOB/Dyspnea General Chief Complaint: Dyspnea Stated Complaint: chest pain, sob Time Seen by Provider: 12/24/21 16:49 Source: patient Mode of arrival: ambulatory History of Present Illness HPI Narrative: 41-year-old female with a past medical history of anemia, asthma, migraines, presenting to the ED complaining SOB, wheezing, and chest tightness since this morning. Admits ran out of her nebs at home. Denies fever, chills, recent travel, pedal edema, calf pain, history of clots Related Data Previous Rx's Medication Instructions Recorded meclizine 25 mg tablet 25 mg PO TID PRN dizziness #20 tabs 06/14/20 albuterol sulfate 2.5 mg/0.5 mL 5 mg inhalation Q4H PRN shortness 12/24/21 solution for nebulization of breath or wheezing #30 ea albuterol sulfate 90 mcg/actuation 2 puff inhalation Q4-6H PRN 12/24/21 aerosol inhaler shortness of breath or wheezing #6.7 grams prednisone 20 mg tablet 40 mg PO DAILY 5 days #10 tabs 12/24/21 Allergies Allergy/AdvReac Type Severity Reaction Status Date / Time No Known Allergies Allergy Verified 12/24/21 15:58 [No Known Allergies*] Review of Systems Review of Systems: Constitutional: No Fever, No Chills, No Fatigue, No Malaise ENT/Mouth: No Ear Pain, No Nasal Congestion, No Sinus Pain, No Hoarseness, No sore throat, No Rhinorrhea, No Swallowing Difficulty Eyes: No Eye Pain, No Swelling, No Redness Cardiovascular: + Chest tightness, + SOB, No Dyspnea on Exertion, No Orthopnea, No Edema, No Palpitations Respiratory: + Cough, No Sputum, + Wheezing, No Smoke Exposure, No Dyspnea Gastrointestinal: No Nausea, No Vomiting, No Diarrhea, No Constipation, No Abdominal pain Genitourinary: No irregular bleeding, No Dysuria, No Urinary Frequency, No Hesitancy Musculoskeletal: No joint pain, No Myalgias, No Joint Swelling Skin: No Skin Lesions, No rash Neuro: No Weakness, No Numbness, No Dizziness, No Headache Yes all other systems are reviewed and are negative Constitutional: Constitutional: Reports as per [facility] Past Medical History Attestation statement: The following information was validated with the patient. Medical History Anemia Asthma delivery delivered Migraine Surgical History H/O tubal ligation Social History Social History Alcohol intake: current Patient Tobacco Use Status: Never used Tobacco Advance Directives: No Advance Directives Information Provided: No Patient : No Physical Exam Vital Signs: Vital Signs: Last Vital Signs Temp 98.1 F 12/24/21 15:58 Pulse 70 12/24/21 15:58 Resp 18 12/24/21 15:58 BP 115/56 L 12/24/21 15:58 Pulse Ox 98 12/24/21 15:58 O2 Del Method 12/24/21 15:58 BMI result Body Mass Index 41.6 Const: General: cooperative, healthy appearing and no acute distress Orientation/consciousness: patient oriented x3 Limitations: no limitations HEENT: Head: Yes normal to inspection and Yes atraumatic Ears: hearing grossly normal bilaterally General nose exam: Normal external nose present Face and sinus: Yes normal facial exam Eyes: General: appearance normal, both eyes and all related structures EOM: EOMs intact bilaterally Neck: Neck: Yes normal visual inspection and Yes no meningeal signs Resp: Effort & Inspection: normal respiratory effort and no respiratory distress Auscultation: wheezes (mild) expiratory wheezes and throughout Cardio: Rate: regular rate Heart sounds: S1 normal heart sound present and S2 normal heart sound present Skin: Rashes: no rashes Wounds: no wounds Neuro: General: patient oriented x3, tone normal and no meningeal signs Gait exam (Neuro): Normal gait present Extrem: General: Yes normal to inspection, Yes no pedal edema and Yes no calf tenderness Course Course Course Narrative: -1837--on re-evaluation patient reports symptomatic improvement after DuoNeb. Lungs now CTA with good air movement. -1899--ED care transfer to [facility] pending CXR and anticipated DC home Results discussed with patient including worrisome signs and symptoms and strict return precautions, and when to return to the emergency department. They verbalized understanding and feel safe for discharge at this time. MDM - SOB/Dyspnea MDM Narrative Medical decision making narrative: 41-year-old female with a past medical history of anemia, asthma, migraines, presenting to the ED complaining SOB, wheezing, and chest tightness since this morning. On exam vital signs stable, NAD/nontoxic-appearing, patient with diffuse end expiratory wheeze and tight lung sounds, no pedal edema/calf tenderness. Concern for asthma exacerbation vs viral syndrome. Rule out pneumonia. Symptoms atypical for ACS/PE Plan: COVID-19 testing, chest x-ray, DuoNeb, p.o. prednisone Differential Diagnosis Differential diagnosis: Likely pneumonia and asthma with exacerbation Medical Records Attestation: I reviewed the patient's medical records. Lab Data Attestation: I reviewed the patient's lab results. Labs: Lab Results 12/24/21 Range/Units 18:06 COVID-19 (CHASE) Negative (Negative) COVID-19 Clin Com See Note Discharge Plan Discharge Clinical Impression: Asthma with exacerbation Patient Disposition: Home, Self-Care Instructions: Asthma (ED) Additional Instructions: You tested negative for COVID-19. Your chest x-ray is unremarkable Continue to use her neb machine, inhalers, and start taking prednisone as prescribed. Follow up with her doctor. If symptoms persist or worsen, you constant worsening shortness of breath or chest discomfort return to the emergency department Prescriptions: New prednisone 20 mg tablet 40 mg PO DAILY 5 Days Qty: 10 0RF albuterol sulfate 90 mcg/actuation HFA aerosol inhaler 2 puff inhalation Q4-6H PRN (Reason: shortness of breath or wheezing) Qty: 6.7 0RF albuterol sulfate 2.5 mg/0.5 mL solution for nebulization 5 mg inhalation Q4H PRN (Reason: shortness of breath or wheezing) Qty: 30 0RF No Action meclizine 25 mg tablet 25 mg PO TID PRN (Reason: dizziness) Qty: 20 0RF Referrals: Physician,Unknown J [Primary Care Provider] - 5 days
[2021-12-24] MEDS: Albuterol/Iprat 2.5/0.5MG 3 ML AMPUL.NEB INHALE (17:56)
[2021-12-24] MEDS: predniSONE 20 MG TABLET 40 MG PO (18:04)
[2021-12-24 18:34] LABS: COVID-19 Test Negative (Negative); IDNOW Serial# 16C4AD1C
== END 2021-12-24 19:30 | disposition home or self-care (01) ==
PROVIDERS: Physician Assistant; Emergency Provider Internal Medicine
DX: J45.901 Unspecified asthma with (acute) exacerbation (principal); Z20.822 Contact with and (suspected) exposure to COVID-19
CPT/HCPCS: 71045; 87635; 93005; 99284

== ENCOUNTER 2022-01-04 08:19 | Emergency (ER) | payer MEDICAID, SELFPAY ==
[2022-01-04 08:24] VITALS: BP 120/68; PULSE 74; RESP 16; TEMP 36.4; O2SAT 99; BMI 41.3
--- NOTE | 2022-01-04 09:07 | ED_ITS ---
HPI - General Adult General Chief complaint: Back Pain/Injury Stated complaint: lower back pain Time Seen by Provider: 01/04/22 09:07 Source: patient Mode of arrival: ambulatory Limitations: no limitations History of Present Illness HPI narrative: Patient is a 41-year-old female with a PMH of asthma, anemia, and vertigo with a chief complaint of lower back pain that started three days ago. The patient denies any trauma to her lower back and states that she woke up with back pain. She states that the pain is worse sitting up and when she is supine. She has tried ibuprofen and icy hot patches with little relief and she last took a dose of ibuprofen yesterday, 01/03/22, but nothing today. She characterizes the pain as stabbing and burning. She states that the pain does not radiate anywhere. Patient denies any dizziness, lightheadedness, abdominal pain, nausea, vomiting, fever, chills, blurry vision, double vision, loss of vision, chest pain, difficulty breathing, shortness of breath, night sweats, pain with urination, increased urinary frequency, increased urinary urgency, blood in her urine or stool, syncope or a near syncopal episode, recent trauma or falls, bowel incontinence, bladder incontinence, bowel retention, bladder retention, or any other complaints at this time. Onset (ago): day(s) Location: back Radiation: non-radiation Severity: severe Severity scale (1-10): 1 Quality: burning and stabbing Pain Consistency: constant Relieving factors: medication (Mild relief with ibuprofen. Last taken yesterday. ) Exacerbating factors: movement (Sitting and ambulating. ) Associated symptoms: denies other symptoms Treatments prior to arrival: NSAID (Ibuprofen yesterday 01/03/22.) Related Data Previous Rx's Medication Instructions Recorded meclizine 25 mg tablet 25 mg PO TID PRN dizziness #20 tabs 06/14/20 albuterol sulfate 2.5 mg/0.5 mL 5 mg inhalation Q4H PRN shortness 12/24/21 solution for nebulization of breath or wheezing #30 ea albuterol sulfate 90 mcg/actuation 2 puff inhalation Q4-6H PRN 12/24/21 aerosol inhaler shortness of breath or wheezing #6.7 grams prednisone 20 mg tablet 40 mg PO DAILY 5 days #10 tabs 12/24/21 cyclobenzaprine 10 mg tablet 10 mg PO TID PRN muscle spasm 7 01/04/22 days #21 tabs Allergies Allergy/AdvReac Type Severity Reaction Status Date / Time No Known Allergies Allergy Verified 12/24/21 15:58 [No Known Allergies*] Review of Systems Constitutional: Constitutional: Reports no additional constitutional complaints, Denies chills, Denies fever(s) and Denies night sweats Eyes: Eyes: Reports no additional eye complaints, Denies blurry vision, Denies change in vision, Denies diplopia, Denies eye discharge, Denies loss of vision and Denies eye pain ENT: Denies dizziness Cardiovascular: Cardiovascular: Reports no additional cardiovascular complaints, Denies chest pain, Denies lightheadedness, Denies Loss of Con sciousness and Denies dyspnea Respiratory: Respiratory: Reports no additional respiratory complaints and Denies dyspnea Gastrointestinal: Gastrointestinal: Reports no additional gastrointestinal complaints, Denies abdominal pain, Denies melena, Denies hematochezia, Denies change in bowel habits and Denies change in stool character Genitourinary: Genitourinary: Denies hematuria, Denies urinary frequency, Denies dysuria, Denies urinary incontinence, Denies urinary hesitancy and Denies urinary urgency Musculoskeletal: Musculoskeletal: Reports back pain (lower back pain), Denies muscle weakness, Denies numbness and Denies tingling Neurologic: Denies dizziness, Denies loss of vision, Denies numbness and Denies tingling Psychiatric: Psychiatric: Reports no additional psychiatric complaints Endocrine: Endocrine: Reports no additional endocrine complaints Hematologic/Lymphatic: Hematologic/Lymphatic: Reports no additional hematologic/lymphatic complaints Allergic/Immunologic: Allergic/Immunologic: Reports no additional allergic/im munologic complaints [facility] Past Medical History Attestation statement: The following information was validated with the patient. Source: old records reviewed Medical History Anemia Asthma delivery delivered Migraine Surgical History H/O tubal ligation Social History Social History Alcohol intake: current Patient Tobacco Use Status: Never used Tobacco Advance Directives: No Advance Directives Information Provided: Yes Physical Exam ED Vital Signs: Vital Signs - 24 hr 08/01/22 08:24 Temperature 97.5 F Pulse Rate 74 Respiratory Rate 16 Blood Pressure 120/68 Pulse Oximetry 99 Oxygen Delivery Method Room Air BMI result Body Mass Index 41.3 Const General: cooperative, no acute distress, alert and awake Nutritional Appearance: well nourished Orientation/consciousness: patient oriented x3 Limitations: no limitations HENMT Head: Yes normal to inspection and Yes atraumatic Ears: hearing grossly normal bilaterally and external ears normal General nose exam: Normal external nose present, no nasal discharge noted and no epistaxis Face and sinus: Yes normal facial exam, No abrasion and No laceration Mouth: Normal oral and palatal mucosa present, no drooling and no muffled voice Eyes General: appearance normal, both eyes and all related structures Periorbital: periorbital findings normal Eyelids: Yes eyelids normal Conjunctivae: conjunctivae normal Pupils: Equal, round and reactive pupils present EOM: EOMs intact bilaterally Neck Neck: Yes normal visual inspection, Yes full ROM and Yes no lymphadenopathy Chest Chest palpation & inspection: normal inspection of the chest Resp Effort & Inspection: normal respiratory effort and able to speak in complete sentences Auscultation: clear to auscultation bilaterally Cardio Rate: regular rate Rhythm: regular rhythm GI Inspection: Yes normal to inspection General: Yes no CVA tenderness Back/Spine/Pelvis Back: no CVA tenderness and back tenderness (Slight tenderness of the lower back to palpation. ) Back/spine/pelvis image: 1. Location of pain/tenderness. Skin General skin exam: no rashes or lesions noted Neuro General: patient oriented x3 and moves all extremities Cranial nerves: Yes Equal, round and reactive pupils present Cognition (Neuro): normal cognition Motor exam (neuro): 5/5 motor strength present throughout Sensory Exam: Normal double simultaneous stimulation for sensation Coordination: [id number] test normal Extrem General: Yes normal to inspection, Yes full ROM and Yes capillary refill normal Psych Appearance: grossly normal Mental Status: mental status grossly normal Affect: normal affect Attitude: cooperative Thought process: Normal thought process present Thought content: Normal thought content present Insight: Good insight present (Psych) Medical Decision Making MDM Narrative Medical decision making narrative: Patient is a 41 year old female presenting to the emergency department today with low back pain. Patient's physical exam showed low back pain but was otherwise unremarkable. I explained my physical exam findings to the patient. I answered all questions asked by the patient. Patient received IM toradol and PO Flexeril which she stated helped her symptoms significantly. I stressed the importance of the patient taking her medication as prescribed. I stressed the importance of the patient following up with her primary care provider. I stres sed the importance of the patient returning to the emergency department immediately if her symptoms were to worsen or if she were to develop any dizziness, shortness of breath, difficulty breathing, chest pain, blurry vision, loss of vision, nausea, vomiting, abdominal pain, fever, chills, back pain, or any other complaints. Patient verbalized agreement and understanding with this treatment plan and discharge. Differential Diagnosis Differential Diagnosis: low back pain Medical Records Medical records reviewed: Yes I reviewed the patient's medical records. Discharge Plan Discharge Clinical Impression: Sciatica Patient Disposition: Home, Self-Care Additional Instructions: Follow up with your primary care provider. Return to the emergency department immediately if your symptoms worsen or if you develop any dizziness, shortness of breath, difficulty breathing, chest pain, blurry vision, loss of vision, nausea, vomiting, abdominal pain, fever, chills, back pain, or any other complaints. Prescriptions: New cyclobenzaprine 10 mg tablet 10 mg PO TID PRN (Reason: muscle spasm) 7 Days Qty: 21 0RF No Action meclizine 25 mg tablet 25 mg PO TID PRN (Reason: dizziness) Qty: 20 0RF prednisone 20 mg tablet 40 mg PO DAILY 5 Days Qty: 10 0RF albuterol sulfate 90 mcg/actuation HFA aerosol inhaler 2 puff inhalation Q4-6H PRN (Reason: shortness of breath or wheezing) Qty: 6.7 0RF albuterol sulfate 2.5 mg/0.5 mL solution for nebulization 5 mg inhalation Q4H PRN (Reason: shortness of breath or wheezing) Qty: 30 0RF Referrals: [facility] Family Medicine [Provider Group] (Call to establish and follow up with a PCP. If you already have a PCP, please call and follow up with them. ) [facility] [Provider Group] (Call to establish and follow up with a PCP. If you already have a PCP, please call and follow up with them. ) [facility] [Provider Group] (Call to establish and follow up with a PCP. If you already have a PCP, please call and follow up with them. ) Stand Alone Forms: Work/School Release Interventions: ED Discharge Assessment Last Done: 01/04/22 10:09 Discharge Date/Time: 01/04/22 10:10 Print Language: French
[2022-01-04] MEDS: Cyclobenzaprine HCl 10 MG TABLET PO (09:55)
[2022-01-04] MEDS: Ketorolac Tromethamine 15 MG/ML VIAL IM (09:55)
== END 2022-01-04 10:10 | disposition home or self-care (01) ==
PROVIDERS: Emergency Provider Emergency Medicine
DX: M54.42 Lumbago with sciatica, left side (principal); M54.41 Lumbago with sciatica, right side; Z79.899 Other long term (current) drug therapy
CPT/HCPCS: 96372; 99283; 99284; J1885

== ENCOUNTER 2022-11-29 14:52 | Emergency (ER) | payer MEDICAID, SELFPAY ==
[2022-11-29 15:12] VITALS: BP 149/74; PULSE 80; RESP 18; TEMP 36.8; O2SAT 98; BMI 43.4
--- NOTE | 2022-11-29 15:14 | ED.EYEPROB ---
HPI - Eye Problem General Chief complaint: Eye Problems Stated complaint: L swollen eye Time Seen by Provider: 11/29/22 15:16 Source: patient Mode of arrival: ambulatory Limitations: no limitations History of Present Illness HPI Narrative: 42 yo female presents to the ER for evaluation of left upper eyelid pain and swelling that has been worsening since yesterday. She woke up today and it was more red and painful. She denies any injury, FB sensation, vision changes. She states it hurts to blink but not to move her eye. No drainage. No fevers but she has had a cough/URI symptoms for a couple of days. She is not diabetic. chief complaint: eye pain and eye redness Onset (ago): day(s) (1) Onset description: gradual Duration: constant Location: left eye Eye Symptoms: redness and pain Place: home Mechanism: none Severity: moderate If Pain, Quality: aching Context: recent URI Associated symptoms: cough Treatments Prior to Arrival: none Related Data Patient tetanus UTD: Yes Previous Rx's Medication Instructions Recorded meclizine 25 mg tablet 25 mg PO TID PRN dizziness #20 tabs 06/14/20 albuterol sulfate 2.5 mg/0.5 mL 5 mg inhalation Q4H PRN shortness 12/24/21 solution for nebulization of breath or wheezing #30 ea albuterol sulfate 90 mcg/actuation 2 puff inhalation Q4-6H PRN 12/24/21 aerosol inhaler shortness of breath or wheezing #6.7 grams prednisone 20 mg tablet 40 mg PO DAILY 5 days #10 tabs 12/24/21 cyclobenzaprine 10 mg tablet 10 mg PO TID PRN muscle spasm 7 01/04/22 days #21 tabs amoxicillin 875 mg-potassium 1 tab PO BID #20 tabs 11/29/22 clavulanate 125 mg tablet Allergies Allergy/AdvReac Type Severity Reaction Status Date / Time No Known Allergies Allergy Verified 11/29/22 15:17 [No Known Allergies*] [facility] Past Medical History Medical History Anemia Asthma delivery delivered Migraine Surgical History H/O tubal ligation Social History Social History Alcohol intake: current Patient Tobacco Use Status: Never used Tobacco Physical Exam Vital Signs: Vital Signs: Last Vital Signs Temp 98.2 F 11/29/22 15:12 Pulse 80 11/29/22 15:12 Resp 18 11/29/22 15:12 BP 149/74 H 11/29/22 15:12 Pulse Ox 98 11/29/22 15:12 O2 Del Method Room Air 11/29/22 15:12 BMI result Body Mass Index 43.4 Appearance: Alert. Oriented X3. No acute distress. HEENT: normocephalic, atraumatic, normal inspection of the right eye. left upper eyelid with erythema, swelling, mild tenderness laterally. EOMI. PERRLA. no visible stye. CVS: Normal heart rate and rhythm. Pulses normal. Respiratory: No respiratory distress. Skin: Skin warm and dry. Normal skin color. Normal skin turgor. No rashes. Extremities: normal inspection x4, normal ROM Neuro: Oriented X 3. No motor deficit. No sensory deficit. Steady gait Medical Decision Making Medical Decision Making MDM Narrative: 42 yo female presenting with unilateral orbital pain on the left with left upper eyelid swelling. No stye visible on exam. No pain with EOM, doubt orbital cellulitis. Nontoxic with no systemic signs or symptoms of infection. No diplopia. Exam and clinical presentation most consistent with preseptal cellulitits. No MRSA risk factors. will treat with augmentin. stable for d/c home. return precautions and outpatient follow up discussed. Differential Diagnosis Differential Diagnoses: The differential diagnosis associated with the presentation includes preseptal cellulitis, orbital cellulitis, chemosis, FB, hordeolum External Record Review External record reviewed: Office record, Outpatient record and Prior outpatient labs Tests considered The following testing was considered but not selected: considered CT scan to r/o obital cellultiis along with lab workup Prescription Management I considered prescription management with: Pain Medication and Antibiotic Critical Care Time Critical Care Time Critical Care Time: No Discharge Plan Discharge Clinical Impression: Preseptal cellulitis of left eye Patient Disposition: Home, Self-Care Instructions: Periorbital Cellulitis in Adults (ED) Additional Instructions: Take the prescribed antibiotics as directed, complete the entire course and do not miss any doses Use warm compresses to the eye at least once per hour Take motrin and tylenol as needed for pain If you develop new or worsening symptoms call 911 or come back to the ER for further evaluation. Prescriptions: New amoxicillin-pot clavulanate 875-125 mg tablet 1 tab PO BID Qty: 20 0RF No Action meclizine 25 mg tablet 25 mg PO TID PRN (Reason: dizziness) Qty: 20 0RF prednisone 20 mg tablet 40 mg PO DAILY 5 Days Qty: 10 0RF albuterol sulfate 90 mcg/actuation HFA aerosol inhaler 2 puff inhalation Q4-6H PRN (Reason: shortness of breath or wheezing) Qty: 6.7 0RF albuterol sulfate 2.5 mg/0.5 mL solution for nebulization 5 mg inhalation Q4H PRN (Reason: shortness of breath or wheezing) Qty: 30 0RF cyclobenzaprine 10 mg tablet 10 mg PO TID PRN (Reason: muscle spasm) 7 Days Qty: 21 0RF
== END 2022-11-29 15:34 | disposition home or self-care (01) ==
PROVIDERS: Emergency Provider Emergency Medicine
DX: L03.213 Periorbital cellulitis (principal); H57.12 Ocular pain, left eye
CPT/HCPCS: 99282; 99283

== ENCOUNTER 2022-12-15 20:04 | Emergency (ER) | payer MEDICAID, SELFPAY ==
--- NOTE | 2022-12-15 20:23 | ED_ITS ---
HPI - General Adult General Chief complaint: Back Pain/Injury Stated complaint: Lower back pain Time Seen by Provider: 12/15/22 20:35 Source: patient Mode of arrival: wheelchair Limitations: no limitations History of Present Illness HPI narrative: Patient is a 42-year-old female with history of asthma, anemia, migraines presenting to the emergency department with right lower back pain radiating down right leg since yesterday. Denies any urinary symptoms. Has tried ibuprofen and previously prescribed muscle relaxer with little relief. Denies any numbness or tingling. Denies fall or other recent trauma. Denies fevers. Denies any saddle anesthesia or bowel or bladder incontinence. MD complaint: right lower back pain Onset (ago): hour(s) Location: back Radiation: extremity and distal Severity: severe Quality: sharp Pain Consistency: constant Relieving factors: rest Exacerbating factors: movement Associated symptoms: denies other symptoms Treatments prior to arrival: NSAID Related Data Previous Rx's Medication Instructions Recorded meclizine 25 mg tablet 25 mg PO TID PRN dizziness #20 tabs 06/14/20 albuterol sulfate 2.5 mg/0.5 mL 5 mg inhalation Q4H PRN shortness 12/24/21 solution for nebulization of breath or wheezing #30 ea albuterol sulfate 90 mcg/actuation 2 puff inhalation Q4-6H PRN 12/24/21 aerosol inhaler shortness of breath or wheezing #6.7 grams prednisone 20 mg tablet 40 mg PO DAILY 5 days #10 tabs 12/24/21 cyclobenzaprine 10 mg tablet 10 mg PO TID PRN muscle spasm 7 01/04/22 days #21 tabs amoxicillin 875 mg-potassium 1 tab PO BID #20 tabs 11/29/22 clavulanate 125 mg tablet cyclobenzaprine 5 mg tablet 5 mg PO TID PRN muscle spasm #12 12/15/22 tabs lidocaine 5 % topical patch 1 patch topical DAILY #15 ea 12/15/22 prednisone 20 mg tablet 40 mg PO DAILY #10 tabs 12/15/22 Allergies Allergy/AdvReac Type Severity Reaction Status Date / Time No Known Allergies Allergy Verified 12/15/22 20:28 [No Known Allergies*] Review of Systems Review of Systems: As per HPI. Yes all other systems are reviewed and are negative Constitutional: Constitutional: Reports as per HPI [facility] Past Medical History Medical History Anemia Asthma delivery delivered Migraine Surgical History H/O tubal ligation Social History Social History Alcohol intake: current Patient Tobacco Use Status: Never used Tobacco Advance Directives: No Advance Directives Information Provided: Yes Physical Exam ED Vital Signs: Vital Signs - 24 hr 12/15/22 20:25 Temperature 97.9 F Pulse Rate 94 Respiratory Rate 18 Blood Pressure 127/83 Pulse Oximetry 97 Oxygen Delivery Method Room Air BMI result Body Mass Index 45.7 Vital signs have been reviewed and appear to be correct. Blood pressure normal. Heart rate normal. Respiratory rate normal. Temperature normal. Oxygen saturation normal. Const General: cooperative, healthy appearing and no acute distress Orientation/consciousness: oriented to person, oriented to place, oriented to time and patient oriented x3 Limitations: no limitations HENMT Head: Yes normocephalic and Yes atraumatic Ears: external ears normal General nose exam: Normal external nose present Face and sinus: Yes face symmetric Mouth: oropharynx normal and moist mucous membranes Throat: Yes uvula midline Eyes Pupils: Equal, round and reactive pupils present Neck Neck: Yes normal visual inspection, Yes no meningeal signs and Yes supple Resp Effort & Inspection: normal respiratory effort and able to speak in complete sentences Auscultation: clear to auscultation bilaterally Cardio Rate: regular rate Rhythm: regular rhythm Heart sounds: S1 normal heart sound present and S2 normal heart sound present GI Palpation (GI): Soft to palpation and nontender Auscultation: normoactive bowel sounds General: Yes no CVA tenderness Back/Spine/Pelvis Back: no CVA tenderness Thoracic/Lumbar Spine: thoracic and lumbar spine normal to inspection, thoraco- lumbar ROM normal, straight leg raise negative bilaterally, pain with thoraco- lumbar ROM, paraspinal muscle tenderness on the right in the mid lumbar and in the lower lumbar, No thoracic spinal tenderness and No lumbar spinal tenderness Pelvis: no pain with anterior-posterior compression and no pain with lateral compression Skin General skin exam: elasticity normal and turgor normal Neuro General: oriented to person, oriented to place, oriented to time, patient oriented x3, tone normal, moves all extremities, no meningeal signs, no focal motor deficits, CN's II-XI intact bilaterally and deep tendon reflexes 2+ bilaterally Cranial nerves: Yes Equal, round and reactive pupils present Cognition (Neuro): normal cognition Motor exam (neuro): 5/5 motor strength present throughout Sensory Exam: Normal double simultaneous stimulation for sensation Extrem General: Yes full ROM, Yes no pedal edema and Yes no calf tenderness Psych Mental Status: mental status grossly normal Affect: normal affect Thought process: Normal thought process present Medical Decision Making Medical Decision Making MDM Narrative: Patient is a 42-year-old female with history of asthma, anemia, migraines presenting to the emergency department with right lower back pain radiating down right leg since yesterday. On exam patient is awake, A+Ox3, normal neurological exam without focal deficits, full ROM, 5/5 equal strength, 2+ DTRs. Given reported history and physical exam findings, feel symptoms are likely related to lumbar strain. Unlikely cauda equina, spinal epidural abscess, malignancy/mass, meningitis. Will prescribe short course of prednisone as well as Flexeril and lidocaine patches. Instructed patient to follow up with PCP this week. Return precautions discussed at bedside. Patient verbalized understanding of and agreement with plan. Differential Diagnosis Differential Diagnoses: The differential diagnosis associated with the presen tation includes As above. External Record Review External record reviewed: Inpatient record, Office record and Outpatient record Tests considered The following testing was considered but not selected: Considered x-ray, however patient denies injury or trauma. Prescription Management I considered prescription management with: Pain Medication and Other (Flexeril) Discharge Plan Discharge Clinical Impression: Strain of lumbar region Patient Disposition: Home, Self-Care Instructions: Muscle Strain (DC), Low Back Strain (ED), Acute Low Back Pain (ED) Additional Instructions: You were evaluated in the emergency department today for back pain. Your evaluation did not show signs of medical conditions requiring emergent intervention at this time. You are being prescribed a short course of a steroid called prednisone to decrease inflammation. Do not take ibuprofen while you are taking the prednisone, you may resume use of ibuprofen on the day following your last dose of prednisone. We recommended that you use ibuprofen or Tylenol per package directions every 6 hours as needed for pain. If necessary, you can alternate these medications so that you take one medication every 3 hours. For instance, at noon take ibuprofen, then at 3:00 p.m. take Tylenol, then at 6:00 p.m. take ibuprofen. You have been prescribed a muscle relaxer which you may take every 8 hours as needed for spasms. You have been prescribed 5% topical lidocaine patches which you can wear for up to 12 hours in a 24 hour period. Do not apply heat directly over the patches. Please schedule an appointment for follow-up with your primary care physician this week for further evaluation of your symptoms. Return to the emergency department if you experience worsening back pain, difficulty walking, fevers, numbness, tingling, incontinence, groin numbness or tingling, or any other concerning symptoms. Prescriptions: New prednisone 20 mg tablet 40 mg PO DAILY Qty: 10 0RF cyclobenzaprine 5 mg tablet 5 mg PO TID PRN (Reason: muscle spasm) Qty: 12 0RF lidocaine 5 % adhesive patch,medicated 1 patch topical DAILY Qty: 15 0RF Rx Instructions: leave on most painful area for up to 12 hrs No Action meclizine 25 mg tablet 25 mg PO TID PRN (Reason: dizziness) Qty: 20 0RF prednisone 20 mg tablet 40 mg PO DAILY 5 Days Qty: 10 0RF albuterol sulfate 90 mcg/actuation HFA aerosol inhaler 2 puff inhalation Q4-6H PRN (Reason: shortness of breath or wheezing) Qty: 6.7 0RF albuterol sulfate 2.5 mg/0.5 mL solution for nebulization 5 mg inhalation Q4H PRN (Reason: shortness of breath or wheezing) Qty: 30 0RF cyclobenzaprine 10 mg tablet 10 mg PO TID PRN (Reason: muscle spasm) 7 Days Qty: 21 0RF amoxicillin-pot clavulanate 875-125 mg tablet 1 tab PO BID Qty: 20 0RF
[2022-12-15 20:25] VITALS: BP 127/83; PULSE 94; RESP 18; TEMP 36.6; O2SAT 97; BMI 45.7
== END 2022-12-15 20:58 | disposition home or self-care (01) ==
PROVIDERS: Emergency Provider Emergency Medicine Emergency Medical Services
DX: S39.012A Strain of muscle, fascia and tendon of lower back, initial encounter (principal); X58.XXXA Exposure to other specified factors, initial encounter; E66.9 Obesity, unspecified; Z68.42 Body mass index [BMI] 45.0-49.9, adult; Y93.9 Activity, unspecified; Y92.9 Unspecified place or not applicable; Y99.9 Unspecified external cause status; Z79.899 Other long term (current) drug therapy
CPT/HCPCS: 99282; 99283

== ENCOUNTER 2023-05-06 10:24 | Emergency (ER) | payer MEDICAID, SELFPAY ==
--- NOTE | ~2023-05-06 | XR_ITS ---
EXAMINATION: XR CHEST CLINICAL INFORMATION: Shortness of breath, cough COMPARISON: 12/24/2021 TECHNIQUE: 2 views of the chest were obtained. FINDINGS: No acute finding. Exam is felt to be comparable to previous. No obvious failure or infiltrate. No effusion. The cardiac silhouette is within normal limits. The hilar structures do not appear pathologically enlarged. XR/XR chest 2V IMPRESSION: No acute finding.
[2023-05-06 10:54] VITALS: BP 125/56; PULSE 94; RESP 18; TEMP 36.1; O2SAT 97; BMI 46.5
--- NOTE | 2023-05-06 11:51 | ED.GENADULT ---
HPI - General Adult General Chief complaint: General Medical Stated complaint: SOB/ headache/ R ear pain Time Seen by Provider: 05/06/23 11:47 Source: patient, RN notes reviewed and old records reviewed Mode of arrival: ambulatory History of Present Illness HPI narrative: 43 year old F w/PMHx asthma, anemia, migraines presenting to the ED c/o productive cough, SOB, rhinorrhea, congestion, headache, and right ear pain since yesterday. Admits to using inhaler however ran out. Denies drainage from ear, chest pain, recent travel, sick contacts Onset (ago): day(s) Related Data Previous Rx's Medication Instructions Recorded meclizine 25 mg tablet 25 mg PO TID PRN dizziness #20 tabs 06/14/20 albuterol sulfate 2.5 mg/0.5 mL 5 mg inhalation Q4H PRN shortness 12/24/21 solution for nebulization of breath or wheezing #30 ea albuterol sulfate 90 mcg/actuation 2 puff inhalation Q4-6H PRN 12/24/21 aerosol inhaler shortness of breath or wheezing #6.7 grams prednisone 20 mg tablet 40 mg (2 x 20 mg) PO DAILY 5 days 12/24/21 #10 tabs cyclobenzaprine 10 mg tablet 10 mg PO TID PRN muscle spasm 7 01/04/22 days #21 tabs amoxicillin 875 mg-potassium 1 tab PO BID #20 tabs 11/29/22 clavulanate 125 mg tablet cyclobenzaprine 5 mg tablet 5 mg PO TID PRN muscle spasm #12 12/15/22 tabs lidocaine 5 % topical patch 1 patch topical DAILY #15 ea 12/15/22 prednisone 20 mg tablet 40 mg (2 x 20 mg) PO DAILY #10 tabs 12/15/22 albuterol sulfate 90 mcg/actuation 2 puff inhalation Q4-6H PRN 05/06/23 aerosol inhaler shortness of breath or wheezing #6.7 grams benzonatate 100 mg capsule 100 mg PO TID PRN cough #14 caps 05/06/23 fluticasone propionate 50 2 spray intranasal DAILY #16 grams 05/06/23 mcg/actuation nasal spray,suspension (Flonase Allergy Relief) Allergies Allergy/AdvReac Type Severity Reaction Status Date / Time No Known Allergies Allergy Verified 05/06/23 10:53 [No Known Allergies*] Review of Systems Review of Systems: Constitutional: No Fever, No Chills ENT/Mouth: No Ear Pain, + Nasal Congestion, No Sinus Pain, No Hoarseness, No sore throat, +Rhinorrhea, No Swallowing Difficulty Cardiovascular: No Chest Pain, + SOB Respiratory: + Cough, No Sputum, No Wheezing Gastrointestinal: No Nausea, No Vomiting, No Abdominal pain Musculoskeletal: No joint pain, No Myalgias, No Joint Swelling Skin: No Skin Lesions, No rash Neuro: No Weakness, No Numbness, No Paresthesias Yes all other systems are reviewed and are negative Constitutional: Constitutional: Reports as per [facility] Past Medical History Attestation statement: The following information was validated with the patient. Source: old records reviewed Medical History delivery delivered Migraine Anemia Asthma Surgical History H/O tubal ligation Social History Social History Alcohol intake: current Patient Tobacco Use Status: Never used Tobacco Advance Directives: No Advance Directives Information Provided: No Physical Exam ED Vital Signs: Vital Signs - 24 hr 05/06/23 10:54 05/06/23 13:39 Temperature 97 F Pulse Rate 94 79 Respiratory Rate 18 18 Blood Pressure 125/56 L Pulse Oximetry 97 Oxygen Delivery Method Room Air BMI result Body Mass Index 46.5 Const General: cooperative, healthy appearing and no acute distress Orientation/consciousness: patient oriented x3 Limitations: no limitations HENMT Head: Yes normal to inspection and Yes atraumatic Ears: hearing grossly normal bilaterally, external ears normal, TM's normal bilaterally and mastoids normal General nose exam: Normal external nose present Face and sinus: Yes normal facial exam Mouth: Normal oral and palatal mucosa present Throat: Yes posterior oropharynx normal, Yes tonsils normal and Yes uvula midline Eyes General: appearance normal, both eyes and all related structures EOM: EOMs intact bilaterally Neck Neck: Yes normal visual inspection and Yes no meningeal signs Resp Effort & Inspection: normal respiratory effort and no respiratory distress Auscultation: clear to auscultation bilaterally, no crackles, no rhonchi and no wheezes Cardio Rate: regular rate Heart sounds: S1 normal heart sound present and S2 normal heart sound present Skin Rashes: no rashes Wounds: no wounds Neuro General: patient oriented x3, tone normal and no meningeal signs Cranial nerves: Yes CN's II-XII intact bilaterally Gait exam (Neuro): Normal gait present Extrem General: Yes normal to inspection and Yes no pedal edema Course Course Course Narrative: -COVID/flu/rapid strep negative XR chest 2V IMPRESSION: No acute finding. Results discussed with patient including worrisome signs and symptoms and strict return precautions, and when to return to the emergency department. They verbalized understanding and feel safe for discharge at this time. Medications Administered Discontinued Medications Generic Name Dose Route Start Last Admin Trade Name Freq PRN Reason Stop Dose Admin Albuterol/Ipratropium 3 ml 05/06/23 13:22 05/06/23 13:39 Albuterol/Iprat 2.5/0.5mg 3 Ml Ampul.Neb INHALE 05/06/23 13:23 3 ml ONCE ONE Administration Medical Decision Making Medical Decision Making MDM Narrative: 43 year old F w/PMHx asthma, anemia, migraines presenting to the ED c/o productive cough, SOB, rhinorrhea, congestion, headache, and right ear pain since yesterday. On exam vital signs stable, NAD, nontoxic appearing, lungs CTA, oropharynx and TMs WNL. Concern for viral illness vs asthma exacerbation vs bronchitis/pneumonia. Low suspicion for ACS/PE. No evidence of otitis or mastoiditis Plan: Viral testing, CXR, DuoNeb Please refer to course for remaining clinical decision making, interpretation of labs/imaging results, and discussions with consultants and/or family members. Differential Diagnosis Differential Diagnoses: The differential diagnosis associated with the presentation includes As above Admission/Observation Consideration of admission/observation: Escalation of care including admission/observation considered Lab Data MDM Lab Attestation statement: I reviewed the patient's lab results. Labs: Lab Results 05/06/23 Range/Units 12:25 COVID-19 ([facility]) Negative (Negative) COVID-19 Clin Com See Note Influenza Type A ([facility]) Negative (Negative) Influenza Type B ([facility]) Negative (Negative) Influenza A & B Note See Note S. pyogenes GrpA [facility] Negative (Negative) Radiology Impression Discussion of test interpretation with radiology: I have reviewed the radiologist's reading. External Record Review External record reviewed: Inpatient record, Office record, Outpatient record, Prior outpatient labs, Prior outpatient radiology, Primary care record and Outside ED record Tests considered The following testing was considered but not selected: As above Discharge Plan Discharge Clinical Impression: Acute viral syndrome Patient Disposition: Home, Self-Care Instructions: Viral Syndrome (ED) Additional Instructions: You have a virus No antibiotics are indicated at this time Make sure you are staying hydrated. Drink plenty of fluids. Rest Alternate Tylenol and Motrin at home as needed for body aches and fever Follow-up with your doctor. If symptoms persist or worsen return to the emergency department *If you are a child & not tolerating liquid or urinating for more than 6 hours, or fevers are uncontrolled with medications at home, return to the emergency department* Prescriptions: New fluticasone propionate [Flonase Allergy Relief] 50 mcg/actuation spray,suspension 2 spray intranasal DAILY Qty: 16 0RF Rx Instructions: administer into each nostril benzonatate 100 mg capsule 100 mg PO TID PRN (Reason: cough) Qty: 14 0RF albuterol sulfate 90 mcg/actuation HFA aerosol inhaler 2 puff inhalation Q4-6H PRN (Reason: shortness of breath or wheezing) Qty: 6.7 0RF No Action meclizine 25 mg tablet 25 mg PO TID PRN (Reason: dizziness) Qty: 20 0RF prednisone 20 mg tablet 40 mg PO DAILY 5 Days Qty: 10 0RF albuterol sulfate 90 mcg/actuation HFA aerosol inhaler 2 puff inhalation Q4-6H PRN (Reason: shortness of breath or wheezing) Qty: 6.7 0RF albuterol sulfate 2.5 mg/0.5 mL solution for nebulization 5 mg inhalation Q4H PRN (Reason: shortness of breath or wheezing) Qty: 30 0RF cyclobenzaprine 10 mg tablet 10 mg PO TID PRN (Reason: muscle spasm) 7 Days Qty: 21 0RF prednisone 20 mg tablet 40 mg PO DAILY Qty: 10 0RF cyclobenzaprine 5 mg tablet 5 mg PO TID PRN (Reason: muscle spasm) Qty: 12 0RF lidocaine 5 % adhesive patch,medicated 1 patch topical DAILY Qty: 15 0RF Rx Instructions: leave on most painful area for up to 12 hrs amoxicillin-pot clavulanate 875-125 mg tablet 1 tab PO BID Qty: 20 0RF Referrals: Physician,Unknown J [Primary Care Provider] -
[2023-05-06 12:49] LABS: COVID-19 Test Negative (Negative); IDNOW Serial# BCCEAD1C
[2023-05-06 12:50] LABS: IDNOW Serial# 58CA691E; Strep A Nucleic Acid Negative (Negative)
[2023-05-06 12:51] LABS: IDNOW Serial# 9DB6401D; Influenza A Negative (Negative); Influenza B2 Negative (Negative)
[2023-05-06 13:39] VITALS: PULSE 79; RESP 18; O2SAT 98
[2023-05-06] MEDS: Albuterol/Iprat 2.5/0.5MG 3 ML AMPUL.NEB INHALE (13:39)
== END 2023-05-06 14:22 | disposition home or self-care (01) ==
PROVIDERS: Physician Assistant; Emergency Provider Emergency Medicine Emergency Medical Services
DX: B34.9 Viral infection, unspecified (principal); R06.02 Shortness of breath; R51.9 Headache, unspecified; H92.01 Otalgia, right ear; Z11.52 Encounter for screening for COVID-19; Z20.822 Contact with and (suspected) exposure to COVID-19; Z79.899 Other long term (current) drug therapy
CPT/HCPCS: 71046; 87502; 87635; 87651; 94640; 99283; 99284

== ENCOUNTER 2023-07-27 21:51 | Emergency (ER) | payer MEDICAID, SELFPAY ==
[2023-07-27 21:53] VITALS: BP 127/77; PULSE 108; RESP 20; TEMP 36.7; O2SAT 94; BMI 44.4
[2023-07-27 22:36] LABS: COVID-19 Test Negative (Negative); IDNOW Serial# 08D9AD1C; IDNOW Serial# 152EDE1D; Influenza A Negative (Negative); Influenza B2 Negative (Negative)
--- NOTE | 2023-07-28 00:14 | ED_ITS ---
HPI - URI/Sore Throat General Chief Complaint: Upper Respiratory Symptoms Stated Complaint: fever, cough, vomiting, ear pain Time Seen by Provider: 07/28/23 00:09 Source: patient Mode of arrival: ambulatory Limitations: no limitations History of Present Illness HPI Narrative: Patient comes to emergency room complaining of flu-like symptoms, complaining of right ear pain, cough, headache. Patient complaining of subjective fever, no chills. No nausea vomiting or diarrhea. Related Data Previous Rx's Medication Instructions Recorded meclizine 25 mg tablet 25 mg PO TID PRN dizziness #20 tabs 06/14/20 albuterol sulfate 2.5 mg/0.5 mL 5 mg inhalation Q4H PRN shortness 12/24/21 solution for nebulization of breath or wheezing #30 ea albuterol sulfate 90 mcg/actuation 2 puff inhalation Q4-6H PRN 12/24/21 aerosol inhaler shortness of breath or wheezing #6.7 grams prednisone 20 mg tablet 40 mg (2 x 20 mg) PO DAILY 5 days 12/24/21 #10 tabs cyclobenzaprine 10 mg tablet 10 mg PO TID PRN muscle spasm 7 01/04/22 days #21 tabs amoxicillin 875 mg-potassium 1 tab PO BID #20 tabs 11/29/22 clavulanate 125 mg tablet cyclobenzaprine 5 mg tablet 5 mg PO TID PRN muscle spasm #12 12/15/22 tabs lidocaine 5 % topical patch 1 patch topical DAILY #15 ea 12/15/22 prednisone 20 mg tablet 40 mg (2 x 20 mg) PO DAILY #10 tabs 12/15/22 albuterol sulfate 90 mcg/actuation 2 puff inhalation Q4-6H PRN 05/06/23 aerosol inhaler shortness of breath or wheezing #6.7 grams benzonatate 100 mg capsule 100 mg PO TID PRN cough #14 caps 05/06/23 fluticasone propionate 50 2 spray intranasal DAILY #16 grams 05/06/23 mcg/actuation nasal spray,suspension (Flonase Allergy Relief) acetaminophen 500 mg tablet 500 mg PO Q6H PRN fever or pain 07/28/23 #20 tabs ibuprofen 600 mg tablet 600 mg PO TID PRN fever or pain 07/28/23 #20 tabs ondansetron HCl 4 mg tablet 4 mg PO Q8H PRN nausea and 07/28/23 vomiting #7 tabs Allergies Allergy/AdvReac Type Severity Reaction Status Date / Time No Known Allergies Allergy Verified 07/27/23 21:53 [No Known Allergies*] Review of Systems Review of Systems: Constitutional : No Weight loss, leaning of subjective fever, No Chills, No Night Sweats, No Fatigue, No Malaise ENT/Mouth : No Hearing loss, complaining of right Ear Pain, complaining of Nasal Congestion, No Sinus Pain, No Hoarseness, No sore throat, No Rhinorrhea, No Swallowing Difficulty Eyes: No Eye Pain, No Swelling, No Redness, No Foreign Body, No Discharge, No Vision Changes Cardiovascular : No Chest Pain, No SOB, No Dyspnea on Exertion, No Orthopnea, No Edema, No Palpitations Respiratory : No Cough, No Sputum, No Wheezing, No Smoke Exposure, No Dyspnea Gastrointestinal : No Nausea, No Vomiting, No Diarrhea, No Constipation, No abdominal Pain, No Hematochezia, No Melena Genitourinary : no irregular bleeding, No Dysuria, No Urinary Frequency, No Hematuria, No Urinary Incontinence, No Urgency, No Flank Pain, No Urinary Flow Changes, No Hesitancy Musculoskeletal : No joint pain, No Myalgias, No Joint Swelling Skin : No Skin Lesions, No rash Neuro : No Weakness, No Numbness, No Paresthesias, No Loss of Consciousness, No Dizziness, complaining of Headache Psych : No Anxiety/Panic, No Depression, No SI/HI/AH/VH, No Social Issues, Heme/Lymph: No Bruising, No Bleeding,No Lymphadenopathy Endocrine : No Polyuria, No Polydipsia, No Temperature Intolerance [facility] Past Medical History Medical History delivery delivered Migraine Anemia Asthma Surgical History H/O tubal ligation Social History Social History Alcohol intake: current Patient Tobacco Use Status: Never used Tobacco Advance Directives: No Advance Directives Information Provided: Yes Physical Exam Vital Signs: Vital Signs: Last Vital Signs Temp 98.1 F 07/27/23 21:53 Pulse 108 H 02/21/24 21:53 Resp 20 07/27/23 21:53 BP 127/77 07/27/23 21:53 Pulse Ox 94 07/27/23 21:53 O2 Del Method Room Air 07/27/23 21:53 BMI result Body Mass Index 44.4 Const: Other: Appearance: Alert. Oriented X3. No acute distress. Eyes: Pupils equal, round and reactive to light. ENT: Pharynx normal. Neck: Normal inspection. Neck supple. No lymph nodes noted. No crepitus CVS: Normal heart rate and rhythm. Pulses normal. Normal S1 and S2 Respiratory: No respiratory distress. Breath sounds normal. No Wheezing. No rales Abdomen: Soft and nontender. No rigidity. No distention. Skin: Skin warm and dry. Normal skin color. Normal skin turgor. Extremities: No lower extremity edema. No Lacerations. No Rash Neuro: Oriented X 3. No motor deficit. No sensory deficit. Moving all extremities. No slurred speech. CN 2 through 12 grossly intact Psych: calm, cooperative, normal affect Medical Decision Making Medical Decision Making MDM Narrative: My interpretation of labs: Designated for KARRIID, influenza -patient likely has a tension headache versus migraine headache. Patient states that she took 1 tablet of ibuprofen over 20 hours ago with no relief Differential Diagnosis Differential Diagnoses: The differential diagnosis associated with the presentation includes (Tension headache, migraine headache, viral URI) Lab Data [facility] Lab Attestation statement: I reviewed the patient's lab results. Labs: Lab Results 07/27/23 Range/Units 22:11 COVID-19 ([facility]) Negative (Negative) COVID-19 Clin Com See Note Influenza Type A ([facility]) Negative (Negative) Influenza Type B ([facility]) Negative (Negative) Influenza A & B Note See Note Discharge Plan Discharge Clinical Impression: Viral URI, Headache Patient Disposition: Home, Self-Care Instructions: Upper Respiratory Infection (ED), Acute Headache (ED) Additional Instructions: Please follow-up with your primary care physician tomorrow. If you have any worsening or new symptoms, please return to the emergency room or call 911 Prescriptions: New acetaminophen 500 mg tablet 500 mg PO Q6H PRN (Reason: fever or pain) Qty: 20 0RF ibuprofen 600 mg tablet 600 mg PO TID PRN (Reason: fever or pain) Qty: 20 0RF ondansetron HCl 4 mg tablet 4 mg PO Q8H PRN (Reason: nausea and vomiting) Qty: 7 0RF No Action meclizine 25 mg tablet 25 mg PO TID PRN (Reason: dizziness) Qty: 20 0RF prednisone 20 mg tablet 40 mg PO DAILY 5 Days Qty: 10 0RF albuterol sulfate 90 mcg/actuation HFA aerosol inhaler 2 puff inhalation Q4-6H PRN (Reason: shortness of breath or wheezing) Qty: 6.7 0RF albuterol sulfate 2.5 mg/0.5 mL solution for nebulization 5 mg inhalation Q4H PRN (Reason: shortness of breath or wheezing) Qty: 30 0RF cyclobenzaprine 10 mg tablet 10 mg PO TID PRN (Reason: muscle spasm) 7 Days Qty: 21 0RF prednisone 20 mg tablet 40 mg PO DAILY Qty: 10 0RF cyclobenzaprine 5 mg tablet 5 mg PO TID PRN (Reason: muscle spasm) Qty: 12 0RF lidocaine 5 % adhesive patch,medicated 1 patch topical DAILY Qty: 15 0RF Rx Instructions: leave on most painful area for up to 12 hrs fluticasone propionate [Flonase Allergy Relief] 50 mcg/actuation spray,suspension 2 spray intranasal DAILY Qty: 16 0RF Rx Instructions: administer into each nostril benzonatate 100 mg capsule 100 mg PO TID PRN (Reason: cough) Qty: 14 0RF albuterol sulfate 90 mcg/actuation HFA aerosol inhaler 2 puff inhalation Q4-6H PRN (Reason: shortness of breath or wheezing) Qty: 6.7 0RF amoxicillin-pot clavulanate 875-125 mg tablet 1 tab PO BID Qty: 20 0RF
[2023-07-28] MEDS: Metoclopramide HCl 10 MG TABLET PO (00:35)
[2023-07-28] MEDS: Ketorolac Tromethamine 30 MG/ML VIAL 60 MG IM (00:35)
[2023-07-28 00:41] VITALS: BP 123/58; PULSE 107; RESP 16; TEMP 36.9; O2SAT 99
== END 2023-07-28 00:42 | disposition home or self-care (01) ==
PROVIDERS: Emergency Provider Emergency Medicine
DX: J06.9 Acute upper respiratory infection, unspecified (principal); R51.9 Headache, unspecified; R50.9 Fever, unspecified; R05.9 Cough, unspecified; R11.2 Nausea with vomiting, unspecified; H92.01 Otalgia, right ear; Z11.52 Encounter for screening for COVID-19
CPT/HCPCS: 87502; 87635; 96372; 99284; J1885

== ENCOUNTER 2024-02-25 15:45 | Emergency (ER) | payer MEDICAID, SELFPAY ==
--- NOTE | ~2024-02-25 | XR_ITS ---
EXAMINATION: XR ELBOW, LEFT CLINICAL INFORMATION: Pain for one week COMPARISON: None available. TECHNIQUE: AP, lateral, and oblique views of the left elbow. FINDINGS: The bones and soft tissues are normal. No fracture or joint effusion. Alignment is anatomic. Joint spaces are maintained. XR/XR elbow LT 2V IMPRESSION: Normal left elbow. Electronically signed by: Mickey Hogan MD 02/25/2024 04:08 PM EDT
[2024-02-25 15:47] VITALS: BP 134/63; PULSE 85; RESP 16; TEMP 36.7; O2SAT 100; BMI 45.4
--- NOTE | 2024-02-25 15:47 | ED_ITS ---
HPI - General Adult General Chief complaint: Extremity Injury, Upper Stated complaint: left elbow pain for about a week now Time Seen by Provider: 02/25/24 17:26 Source: patient Mode of arrival: ambulatory Limitations: no limitations History of Present Illness ED Provider: dudley MCINTOSH narrative: Patient is a 43-year-old female presenting to the ED with complaint of atraumatic left elbow pain for the past week. States woke with the pain. At times pain radiates to forearm. Denies numbness/tingling. Took Tylenol with little relief. MD complaint: left elbow pain Onset (ago): week(s) Treatments prior to arrival: other Related Data Previous Rx's ?Medication ?Instructions ?Recorded meclizine 25 mg tablet 25 mg PO TID PRN dizziness #20 tabs 06/14/20 albuterol sulfate 2.5 mg/0.5 mL 5 mg inhalation Q4H PRN shortness 12/24/21 solution for nebulization of breath or wheezing #30 ea albuterol sulfate 90 mcg/actuation 2 puff inhalation Q4-6H PRN 12/24/21 aerosol inhaler shortness of breath or wheezing #6.7 grams prednisone 20 mg tablet 40 mg (2 x 20 mg) PO DAILY 5 days 12/24/21 #10 tabs cyclobenzaprine 10 mg tablet 10 mg PO TID PRN muscle spasm 7 01/04/22 days #21 tabs amoxicillin 875 mg-potassium 1 tab PO BID #20 tabs 11/29/22 clavulanate 125 mg tablet cyclobenzaprine 5 mg tablet 5 mg PO TID PRN muscle spasm #12 12/15/22 tabs lidocaine 5 % topical patch 1 patch topical DAILY #15 ea 12/15/22 prednisone 20 mg tablet 40 mg (2 x 20 mg) PO DAILY #10 tabs 12/15/22 albuterol sulfate 90 mcg/actuation 2 puff inhalation Q4-6H PRN 05/06/23 aerosol inhaler shortness of breath or wheezing #6.7 grams benzonatate 100 mg capsule 100 mg PO TID PRN cough #14 caps 05/06/23 fluticasone propionate 50 2 spray intranasal DAILY #16 grams 05/06/23 mcg/actuation nasal spray,suspension (Flonase Allergy Relief) acetaminophen 500 mg tablet 500 mg PO Q6H PRN fever or pain 07/28/23 #20 tabs ibuprofen 600 mg tablet 600 mg PO TID PRN fever or pain 07/28/23 #20 tabs ondansetron HCl 4 mg tablet 4 mg PO Q8H PRN nausea and 07/28/23 vomiting #7 tabs naproxen 500 mg tablet 500 mg PO BID #28 tabs 02/25/24 Allergies Allergy/AdvReac Type Severity Reaction Status Date / Time No Known Allergies Allergy Verified 02/25/24 15:49 [No Known Allergies*] Review of Systems Review of Systems: As per HPI Yes all other systems are reviewed and are negative Constitutional: Constitutional: Reports as per HPI [facility] Past Medical History Medical History delivery delivered Migraine Anemia Asthma Surgical History H/O tubal ligation Social History Social History Alcohol intake: current Patient Tobacco Use Status: Never used Tobacco Physical Exam ED Vital Signs: Vital Signs - 24 hr 02/25/24 15:47 Temperature 98.0 F Pulse Rate 85 Respiratory Rate 16 Blood Pressure 134/63 Pulse Oximetry 100 Oxygen Delivery Method Room Air BMI result Body Mass Index 45.4 Vital signs have been reviewed and appear to be correct. Blood pressure normal. Heart rate normal. Respiratory rate normal. Temperature normal. Oxygen saturation normal. Const General: cooperative, healthy appearing and no acute distress Orientation/consciousness: oriented to person, oriented to place, oriented to time and patient oriented x3 Limitations: no limitations [facility] Head: Yes normocephalic and Yes atraumatic Ears: external ears normal General nose exam: Normal external nose present Face and sinus: Yes face symmetric Mouth: oropharynx normal and moist mucous membranes Throat: Yes uvula midline Eyes Pupils: Equal, round and reactive pupils present Neck Neck: Yes normal visual inspection and Yes supple Resp Effort & Inspection: normal respiratory effort and able to speak in complete sentences Auscultation: clear to auscultation bilaterally Cardio Rate: regular rate Rhythm: regular rhythm Heart sounds: S1 normal heart sound present and S2 normal heart sound present GI Palpation (GI): Soft to palpation and nontender Auscultation: normoactive bowel sounds General: Yes no CVA tenderness Back/Spine/Pelvis Back: no CVA tenderness Skin General skin exam: elasticity normal and turgor normal Neuro General: oriented to person, oriented to place, oriented to time, patient oriented x3, moves all extremities, no focal motor deficits and CN's II-XI intact bilaterally Cranial nerves: Yes Equal, round and reactive pupils present Cognition (Neuro): normal cognition Extrem General: Yes full ROM, Yes no pedal edema and Yes no calf tenderness Left upper extremity: elbow/forearm Details: normal to inspection, tenderness Location: of the lateral epicondyle, normal ROM and distal pulses intact; no swelling, no unusual warmth and no ecchymosis Psych Mental Status: mental status grossly normal Affect: normal affect Thought process: Normal thought process present Course Course Course Narrative: This is a rapid medical exam performed by Quentin Vergara NP: Additional HPI, ROS, PE not included below will be deferred to primary provider. Patient is a 43-year-old female presenting in the emergency department with left elbow pain for the past week radiating forearm. States she woke with pain 1 morning. Denies fall or other trauma. Plan: X-ray Medical Decision Making Medical Decision Making [facility] Narrative: Patient is a 43-year-old female presenting to the ED with complaint of atraumatic left elbow pain for the past week. On exam patient is awake, A+Ox3, VS WNL, afebrile, normal neurological exam without focal deficits, physical exam findings as above. Given reported symptoms and physical exam findings, initial differential includes lateral tendinopathy, osteoarthritis, bone spur. X-ray left elbow notable for no fracture, OA, bone spur. My interpretation is in agreement with the radiologist's interpretation. Discussed with patient that based on physical exam findings, symptoms likely due to lateral tendinopathy. KATT wrap applied in the ED. Advised patient to ice intermittently, will send prescription for naproxen. Follow up with PCP/ortho as needed. Return precautions discussed. Patient verbalized understanding of and agreement with plan. Differential Diagnosis Differential Diagnoses: The differential diagnosis associated with the presentation includes As per [facility] Independent Interpretation I performed an independent interpretation of an: Plain X-Ray Interpretation: X-ray left elbow notable for no fracture, OA, bone spur. Radiology Impression Discussion of test interpretation with radiology: I have reviewed the radiologist's reading. Radiologist Impression: XR/XR elbow LT 2V IMPRESSION: Normal left elbow. External Record Review External record reviewed: Inpatient record, Office record and Outpatient record Prescription Management I considered prescription management with: Pain Medication Discharge Plan Discharge Clinical Impression: Tendonitis of elbow, left Patient Disposition: Home, Self-Care Instructions: Tennis Elbow (ED), How to Use an Elastic Bandage (ED) Additional Instructions: You have been evaluated in the emergency department today for elbow pain. Your evaluation did not find evidence of medical conditions requiring emergent intervention at this time. We have provided an KATT wrap for you to use while your elbow heals. Please rest, ice, and elevate your elbow, and resume normal activities as tolerated. You are being prescribed naproxen to reduce inflammation. You can also take Tylenol with this if needed for pain. Please schedule an appointment for follow-up with your primary care provider this week. Return to the emergency department if you experience worsening pain, numbness, tingling, change of color in your arm, or any other concerning symptoms. Follow up with orthopedics for ongoing symptoms. Prescriptions: New naproxen 500 mg tablet 500 mg PO BID Qty: 28 0RF No Action meclizine 25 mg tablet 25 mg PO TID PRN (Reason: dizziness) Qty: 20 0RF prednisone 20 mg tablet 40 mg PO DAILY 5 Days Qty: 10 0RF albuterol sulfate 90 mcg/actuation HFA aerosol inhaler 2 puff inhalation Q4-6H PRN (Reason: shortness of breath or wheezing) Qty: 6.7 0RF albuterol sulfate 2.5 mg/0.5 mL solution for nebulization 5 mg inhalation Q4H PRN (Reason: shortness of breath or wheezing) Qty: 30 0RF cyclobenzaprine 10 mg tablet 10 mg PO TID PRN (Reason: muscle spasm) 7 Days Qty: 21 0RF prednisone 20 mg tablet 40 mg PO DAILY Qty: 10 0RF cyclobenzaprine 5 mg tablet 5 mg PO TID PRN (Reason: muscle spasm) Qty: 12 0RF lidocaine 5 % adhesive patch,medicated 1 patch topical DAILY Qty: 15 0RF Rx Instructions: leave on most painful area for up to 12 hrs fluticasone propionate [Flonase Allergy Relief] 50 mcg/actuation spray,suspension 2 spray intranasal DAILY Qty: 16 0RF Rx Instructions: administer into each nostril benzonatate 100 mg capsule 100 mg PO TID PRN (Reason: cough) Qty: 14 0RF albuterol sulfate 90 mcg/actuation HFA aerosol inhaler 2 puff inhalation Q4-6H PRN (Reason: shortness of breath or wheezing) Qty: 6.7 0RF amoxicillin-pot clavulanate 875-125 mg tablet 1 tab PO BID Qty: 20 0RF acetaminophen 500 mg tablet 500 mg PO Q6H PRN (Reason: fever or pain) Qty: 20 0RF ibuprofen 600 mg tablet 600 mg PO TID PRN (Reason: fever or pain) Qty: 20 0RF ondansetron HCl 4 mg tablet 4 mg PO Q8H PRN (Reason: nausea and vomiting) Qty: 7 0RF Referrals: [facility] [Provider Group] Interventions: ED Discharge Assessment Last Done: 02/25/24 17:34 Print Language: Arabic
[2024-02-25 17:34] VITALS: BP 134/63; PULSE 85; RESP 16; TEMP 36.7; O2SAT 100
== END 2024-02-25 17:37 | disposition home or self-care (01) ==
PROVIDERS: Emergency Provider Internal Medicine
DX: M77.8 Other enthesopathies, not elsewhere classified (principal); M25.522 Pain in left elbow; Z79.899 Other long term (current) drug therapy
CPT/HCPCS: 73070; 99282; 99283

== ENCOUNTER 2024-03-06 00:23 | Emergency (ER) | payer MEDICAID, SELFPAY ==
--- NOTE | ~2024-03-06 | XR_ITS ---
EXAMINATION: XR CHEST CLINICAL INFORMATION: Cough COMPARISON: Chest radiograph 05/06/2023 TECHNIQUE: Frontal view of the chest was obtained. FINDINGS: Normal appearance of the cardiomediastinal structures. No effusions or pneumothoraces. No focal pulmonary consolidation. Normal pattern of pulmonary vasculature. XR/XR chest 1V IMPRESSION: No cardiopulmonary abnormalities identified. Electronically signed by: Alexander Driver MD 03/06/2024 02:27 AM EDT
[2024-03-06 00:47] VITALS: BP 128/71; PULSE 74; RESP 16; TEMP 37.1; O2SAT 97; BMI 44.4
[2024-03-06 01:07] LABS: Basophils Percent Auto 0.5 % (0-2); Eosinophils Absolute Auto 0.1 X10*3/uL (0.0-0.4); Eosinophils Percent Auto 1.8 % (0-4); Hematocrit 35.9 % (37.0-47.0); Hemoglobin 11.9 g/dl (12.0-16.0); Imm Gran Abs Auto 0.03 X10*3/uL (0.00-0.03); Imm Gran Pct Auto 0.4 % (0.0-0.4); Lymphocytes Absolute Auto 2.4 X10*3/uL (1.2-4.9); Lymphocytes Percent Auto 31.6 % (20-40); MANUAL DIFF FLAG NO; Mean Corpuscular HGB Conc 33.1 g/dl (31.0-35.0); Mean Corpuscular Hemoglobin 31.5 pg (27.0-33.0); Mean Platelet Volume 10.1 fL (9.4-12.3); Monocytes Absolute Auto 0.5 X10*3/uL (0.1-1.2); Monocytes Percent Auto 6.7 % (2-11); Neutrophils Absolute Auto 4.6 x10*3/uL (2.0-8.3); Platelet Count 220 X10*3/uL (160-400); Red Blood Count 3.78 X10*6/uL (4.20-5.50); Red Cell Distribution Width 13.9 % (11.0-16.0); White Blood Count 7.7 X10*3/uL (4.8-10.8)
[2024-03-06 01:13] LABS: IDNOW Serial# 08D9AD1C; Strep A Nucleic Acid Negative (Negative)
[2024-03-06 01:20] LABS: Anion Gap 13 (12-20); Blood Urea Nitrogen 7 mg/dL (9-16); Calcium 9.2 mg/dL (8.4-10.2); Carbon Dioxide 23 mmol/L (22-29); Chloride 108 mmol/L (96-108); Creatinine Clr Calc Pharmacy 92.5; Estimated Glomerular Filt Rate > 60; Glucose Random 113 mg/dL (60-115); Potassium 4.1 mmol/L (3.3-5.1); Sodium 140 mmol/L (135-145)
--- OUTSIDE RECORDS SUMMARY | 2024-03-06 01:26 | XMS_ITS | Continuity of Care Document ---
Author Organization [facility] ter Address [address] [place] [id number]- Care Team Providers Care Uniform Patrol Police Officer Name Role Phone Not on Staff, PCP Primary Care Physician Unavail able Encounter [facility] Date(s): 11/28/20 - 11/29/[address] [address]- Encounter Diagnosis Dysphagia(Final) - 11/29/20 Discharge Disposition: A-D/C Home Attending Physician: Jose Guadalupe Stock DO Admitting Physician: Jose Guadalupe Stock DO Referring Physician: Not on Staff, Referring MD Allergies, Adverse Reactions, Alerts Substance Reaction Severity Status NKA Active Immunizations Given and Recorded Vaccine Date Status Refusal Reason hepatitis B adult vaccine 04/20/13 Given hepatitis B adult vaccine 1 11/08/12 Given pneumococcal 23-valent vaccine 03/26/13 Given tetanus-diphtheria toxoids (Td) 2 02/26/10 Given influenza virus vaccine, inactivated 3 02/26/10 Gi wade 1Admin Note: VIS given-12/21/2006 2Admin Note: vis 3Admin Note: vis 01/13/10 Medications D2000 oral capsule 1 capsule = 2,000 International_Units, By Mouth, Daily, # 30 capsule, 2 Refills, Maintenance, Capsule Start Date: 11/10/12 Status: Ordered ibuprofen 600 mg oral tablet 1 tablet = 600 mg, By Mouth, 4 times a day, PRN for pain, # 40 tablet, 0 Refills, Maintenance, Tablet Start Date: 03/26/13 Status: Ordered Ortho Tri-Cyclen Lo oral tablet 1 tablet, By Mouth, Daily, # 28 tablet, 11 Refills, Maintenance, 1 tablet By Mouth Daily Start Date: 04/12/13 Status: Ordered Pepcid 20 mg oral tablet 1 tablet = 20 mg, By Mouth, 2 times a day, # 42 tablet, 0 Refills, Maintenance, 11/29/20 15:10:00 EDT, Tablet, [id number], Partial fill upon patient request if the prescription is for a schedule II opioid drug. Start Date: 11/29/20 Stop Date: 12/20/20 Status: Ordered Problem List Condition Effective Dates Status Health Status Inform ant Status Post Sterilization wi th Essure(Confirmed) Active Results Orders for Microbiology Reports Name Date Group A Strep Screen and Culture 11/29/20 Microbiology Reports TEST:Group A Strep Screen and Culture STATUS:Unauthenticated BODY SITE: SOURCE:THROAT COLLECTED DATE/TIME:11/29/20 8:38 AM Group A Strep Screen and Culture SPECIMEN DESCRIPTION : THROAT SWAB SPECIAL REQUESTS : NONE DIRECT EXAM : RAPID GROUP A RESULT IS NEGATIVE, REFER TO CULTURE RESULT. REPORT STATUS : PRELIMINARY REPORT Vital Signs Most recent to oldest [Reference Range]: 1 2 3 Oxygen Saturation [94-100 %] 99 % (11/29/20 4:55 PM) 98 % (11/29/20 2:26 PM) 98 % (11/29/20 1:27 PM) Pulse Rate [55-90 bpm] 65 bpm (11/29/20 4:55 PM) 62 bpm (11/29/20 2:26 PM) 66 bpm (11/29/20 1:27 PM) Blood Pressure [90-138/55-84 mm Hg] 116/60mm Hg (11/29/20 4:55 PM) 119/62mm Hg (11/29/20 2:26 PM) 122/68mm Hg (11/29/20 1:27 PM) Respiratory Rate [16-30 br/min] 16 br/min (11/29/20 4:55 PM) 17 br/min (11/29/20 2:26 PM) 17 br/min (11/29/20 1:27 PM) Temperature [96.8-100.4 DegF] 98.4 DegF (11/29/20 4:55 PM) 98.4 DegF (11/29/20 2:26 PM) 98 DegF (11/29/20 1:27 PM) Mode of Delivery (Oxygen) Room air (11/29/20 4:55 PM) Room air (11/29/20 2:26 PM) Room air (11/29/20 1:27 PM) Blood pressure sites Arm, left (11/29/20 4:55 PM) Arm, left (11/29/20 2:26 PM) Arm, left (11/29/20 1:27 PM) Temperature Route Oral (11/29/20 4:55 PM) Oral (11/29/20 2:26 PM) Oral (11/29/20 1:27 PM)
--- OUTSIDE RECORDS SUMMARY | 2024-03-06 01:26 | XMS_ITS | Continuity of Care Document ---
Author Organization [facility] Address Unknown Care Team Providers Care Lottery Clerk Name Role Phone Not on Staff, PCP Primary Care Physician Unavail able Encounter [facility] Date(s): 05/13/21 - 06/12/21 [facility] Allergies, Adverse Reactions, Alerts Substance Reaction Severity [...] Refills, Maintenance, 11/29/20 15:10:00 EDT, Tablet, [id number], Partial fill upon patient request if the prescription is for a schedule II opioid drug. Start Date: 11/29/20 Stop Date: 12/20/20 Status: Ordered Problem List Condition Effective Dates Status Health Status Inform ant Status Post Sterilization wi th Essure(Confirmed) Active
[2024-03-06 03:34] VITALS: BP 120/55; PULSE 78; RESP 16; TEMP 36.4; O2SAT 99
--- NOTE | 2024-03-06 05:44 | ED.GENADULT ---
HPI - General Adult General Chief complaint: General Medical Stated complaint: Throat pain,cyst under breast Time Seen by Provider: 03/06/24 05:34 Source: patient Mode of arrival: ambulatory Limitations: no limitations History of Present Illness ED Provider: Dr. Jyoti Hernandez HPI narrative: Patient comes to the emergency room complaining of left-sided ear pain, sore throat and also patient states that she has an abscess/cyst on the right breast. Patient denies fever chills Related Data Previous Rx's ?Medication ?Instructions ?Recorded meclizine 25 mg tablet 25 mg PO TID PRN dizziness #20 tabs 06/14/20 albuterol sulfate 2.5 mg/0.5 mL 5 mg inhalation Q4H PRN shortness 12/24/21 solution for nebulization of breath or wheezing #30 ea albuterol sulfate 90 mcg/actuation 2 puff inhalation Q4-6H PRN 12/24/21 aerosol inhaler shortness of breath or wheezing #6.7 grams prednisone 20 mg tablet 40 mg (2 x 20 mg) PO DAILY 5 days 12/24/21 #10 tabs cyclobenzaprine 10 mg tablet 10 mg PO TID PRN muscle spasm 7 01/04/22 days #21 tabs amoxicillin 875 mg-potassium 1 tab PO BID #20 tabs 11/29/22 clavulanate 125 mg tablet cyclobenzaprine 5 mg tablet 5 mg PO TID PRN muscle spasm #12 12/15/22 tabs lidocaine 5 % topical patch 1 patch topical DAILY #15 ea 12/15/22 prednisone 20 mg tablet 40 mg (2 x 20 mg) PO DAILY #10 tabs 12/15/22 albuterol sulfate 90 mcg/actuation 2 puff inhalation Q4-6H PRN 05/06/23 aerosol inhaler shortness of breath or wheezing #6.7 grams benzonatate 100 mg capsule 100 mg PO TID PRN cough #14 caps 05/06/23 fluticasone propionate 50 2 spray intranasal DAILY #16 grams 05/06/23 mcg/actuation nasal spray,suspension (Flonase Allergy Relief) acetaminophen 500 mg tablet 500 mg PO Q6H PRN fever or pain 07/28/23 #20 tabs ibuprofen 600 mg tablet 600 mg PO TID PRN fever or pain 07/28/23 #20 tabs ondansetron HCl 4 mg tablet 4 mg PO Q8H PRN nausea and 07/28/23 vomiting #7 tabs naproxen 500 mg tablet 500 mg PO BID #28 tabs 02/25/24 cephalexin 500 mg capsule 500 mg PO BID #14 caps 03/06/24 doxycycline hyclate 100 mg capsule 100 mg PO BID #14 caps 03/06/24 Allergies Allergy/AdvReac Type Severity Reaction Status Date / Time No Known Allergies Allergy Verified 03/06/24 00:49 [No Known Allergies*] Review of Systems Review of Systems: Constitutional : No Weight loss, No Fever, No Chills, No Night Sweats, No Fatigue, No Malaise ENT/Mouth : No Hearing loss, complaining of left-sided Ear Pain, No Nasal Congestion, No Sinus Pain, No Hoarseness, complaining of sore throat, No Rhinorrhea, No Swallowing Difficulty Eyes: No Eye Pain, No Swelling, No Redness, No Foreign Body, No Discharge, No Vision Changes Cardiovascular : No Chest Pain, No SOB, No Dyspnea on Exertion, No Orthopnea, No Edema, No Palpitations Respiratory : No Cough, No Sputum, No Wheezing, No Smoke Exposure, No Dyspnea Gastrointestinal : No Nausea, No Vomiting, No Diarrhea, No Constipation, No abdominal Pain, No Hematochezia, No Melena Genitourinary : no irregular bleeding, No Dysuria, No Urinary Frequency, No Hematuria, No Urinary Incontinence, No Urgency, No Flank Pain, No Urinary Flow Changes, No Hesitancy Musculoskeletal : No joint pain, No Myalgias, No Joint Swelling Skin : Complaining of a small cyst/abscess on the right side of the breast Neuro : No Weakness, No Numbness, No Paresthesias, No Loss of Consciousness, No Dizziness, No Headache Psych : No Anxiety/Panic, No Depression, No SI/HI/AH/VH, No Social Issues, Heme/Lymph: No Bruising, No Bleeding,No Lymphadenopathy Endocrine : No Polyuria, No Polydipsia, No Temperature Intolerance [facility] Past Medical History Medical History delivery delivered Migraine Anemia Asthma Surgical History H/O tubal ligation Social History Social History Alcohol intake: current Patient Tobacco Use Status: Never used Tobacco Smoked in Last 30 Days: No Use of substances other than those prescribed or required for medical reasons: No Advance Directives: No Advance Directives Information Provided: Yes Do you have a plan to hurt others: No Plan Physical Exam ED Vital Signs: Vital Signs - 24 hr 03/06/24 00:47 03/06/24 03:34 Temperature 98.7 F 97.5 F Pulse Rate 74 78 Respiratory Rate 16 16 Blood Pressure 128/71 120/55 L Pulse Oximetry 97 99 Oxygen Delivery Method Room Air Room Air BMI result Body Mass Index 44.4 Const Other: Appearance: Alert. Oriented X3. No acute distress. Eyes: Pupils equal, round and reactive to light. ENT: Pharynx normal. Left tympanic membrane erythematous, not perforated, Neck: Normal inspection. Neck supple. No lymph nodes noted. No crepitus CVS: Normal heart rate and rhythm. Pulses normal. Normal S1 and S2 Respiratory: No respiratory distress. Breath sounds normal. No Wheezing. No rales Abdomen: Soft and nontender. No rigidity. No distention. Skin: Skin warm and dry. Normal skin color. Normal skin turgor. There is a 1 cm x 1 cm cyst on the right side of the breast Extremities: No lower extremity edema. No Lacerations. No Rash Neuro: Oriented X 3. No motor deficit. No sensory deficit. Moving all extremities. No slurred speech. CN 2 through 12 grossly intact Psych: calm, cooperative, normal affect Procedures Abscess I/D Site: other (Right breast) Side (if applicable): right Local Anesthetic: lidocaine 1% Amount of anesthesia used (mL): 3 Technique: incised with blade Amount of fluid expressed (mL): 2 Sent for culture/gram staining?: No Irrigation: No Packing used?: none Medical Decision Making Medical Decision Making MDM Narrative: Patient was given p.o. antibiotics, cephalexin and doxycycline Lab Data 03/06/24 00:58 03/06/24 00:58 Labs: Lab Results 03/06/24 03/06/24 Range/Units 00:58 00:59 WBC 7.7 (4.8-10.8) X10*3/uL RBC 3.78 L (4.20-5.50) X10*6/uL Hgb 11.9 L (12.0-16.0) g/dl Hct 35.9 L (37.0-47.0) % MCV 95.0 (80.0-98.0) fL MCH 31.5 (27.0-33.0) pg MCHC 33.1 (31.0-35.0) g/dl RDW 13.9 (11.0-16.0) % Plt Count 220 (160-400) X10*3/uL MPV 10.1 (9.4-12.3) fL Immature Gran % (Auto) 0.4 (0.0-0.4) % Neut % (Auto) 59.0 (45-73) % Lymph % (Auto) 31.6 (20-40) % [place] % (Auto) 6.7 (2-11) % Eos % (Auto) 1.8 (0-4) % Baso % (Auto) 0.5 (0-2) % Lymph # (Auto) 2.4 (1.2-4.9) X10*3/uL [place] # (Auto) 0.5 (0.1-1.2) X10*3/uL Eos # (Auto) 0.1 (0.0-0.4) X10*3/uL Baso # (Auto) 0.0 (0.0-0.2) X10*3/uL Abs Immat Gran (auto) 0.03 (0.00-0.03) X10*3/uL Absolute Neuts (auto) 4.6 (2.0-8.3) x10*3/uL Absolute Nucleated RBC 0.000 (0.0-0.012) X10*3/uL Nucleated RBC % (auto) 0.0 (0.0-0.2) /100WBC Sodium 140 (135-145) mmol/L Potassium 4.1 (3.3-5.1) mmol/L Chloride 108 (96-108) mmol/L Carbon Dioxide 23 (22-29) mmol/L Anion Gap 13 (12-20) BUN 7 L (9-16) mg/dL Creatinine 0.79 (0.5-1.4) mg/dL Estim Creat Clear Calc 92.5 Estimated GFR > 60 Random Glucose 113 (60-115) mg/dL Calcium 9.2 (8.4-10.2) mg/dL S. pyogenes GrpA TOMAS Negative (Negative) Discharge Plan Discharge Clinical Impression: Otitis media, Abscess of breast Patient Disposition: Home, Self-Care Instructions: Ear Infection (ED), Abscess (ED) Additional Instructions: Please follow-up with your primary care physician tomorrow. If you have any worsening or new symptoms, please return to the emergency room or call 911 Prescriptions: New cephalexin 500 mg capsule 500 mg PO BID Qty: 14 0RF doxycycline hyclate 100 mg capsule 100 mg PO BID Qty: 14 0RF No Action meclizine 25 mg tablet 25 mg PO TID PRN (Reason: dizziness) Qty: 20 0RF prednisone 20 mg tablet 40 mg PO DAILY 5 Days Qty: 10 0RF albuterol sulfate 90 mcg/actuation HFA aerosol inhaler 2 puff inhalation Q4-6H PRN (Reason: shortness of breath or wheezing) Qty: 6.7 0RF albuterol sulfate 2.5 mg/0.5 mL solution for nebulization 5 mg inhalation Q4H PRN (Reason: shortness of breath or wheezing) Qty: 30 0RF cyclobenzaprine 10 mg tablet 10 mg PO TID PRN (Reason: muscle spasm) 7 Days Qty: 21 0RF prednisone 20 mg tablet 40 mg PO DAILY Qty: 10 0RF cyclobenzaprine 5 mg tablet 5 mg PO TID PRN (Reason: muscle spasm) Qty: 12 0RF lidocaine 5 % adhesive patch,medicated 1 patch topical DAILY Qty: 15 0RF Rx Instructions: leave on most painful area for up to 12 hrs fluticasone propionate [Flonase Allergy Relief] 50 mcg/actuation spray,suspension 2 spray intranasal DAILY Qty: 16 0RF Rx Instructions: administer into each nostril benzonatate 100 mg capsule 100 mg PO TID PRN (Reason: cough) Qty: 14 0RF albuterol sulfate 90 mcg/actuation HFA aerosol inhaler 2 puff inhalation Q4-6H PRN (Reason: shortness of breath or wheezing) Qty: 6.7 0RF amoxicillin-pot clavulanate 875-125 mg tablet 1 tab PO BID Qty: 20 0RF acetaminophen 500 mg tablet 500 mg PO Q6H PRN (Reason: fever or pain) Qty: 20 0RF ibuprofen 600 mg tablet 600 mg PO TID PRN (Reason: fever or pain) Qty: 20 0RF ondansetron HCl 4 mg tablet 4 mg PO Q8H PRN (Reason: nausea and vomiting) Qty: 7 0RF naproxen 500 mg tablet 500 mg PO BID Qty: 28 0RF Print Language: [place] Islander
[2024-03-06] MEDS: Doxycycline Monohydrate 100 MG CAPSULE PO (06:07)
[2024-03-06] MEDS: cephALEXin 500 MG CAPSULE PO (06:07)
[2024-03-06] MEDS: Lidocaine HCl 1 % 20 ML VIAL 5 ML INFILTRATI (06:07)
[2024-03-06 06:13] VITALS: BP 125/73; PULSE 75; RESP 16; TEMP 36.9; O2SAT 99
[2024-03-06 06:14] VITALS: BP 125/73; PULSE 75; RESP 16; TEMP 36.9; O2SAT 99
== END 2024-03-06 06:14 | disposition home or self-care (01) ==
PROVIDERS: Emergency Provider Emergency Medicine
DX: H66.92 Otitis media, unspecified, left ear (principal); N61.1 Abscess of the breast and nipple; J02.9 Acute pharyngitis, unspecified; Z79.899 Other long term (current) drug therapy
CPT/HCPCS: 10060; 36415; 71045; 80048; 85025; 87651; 99284

== ENCOUNTER 2024-12-27 12:57 | Emergency (ER) | payer MEDICAID, SELFPAY ==
--- NOTE | ~2024-12-27 | CT_ITS ---
CLINICAL HISTORY: diffuse abdominal tenderness CT abdomen and pelvis with contrast Comparison: None available Findings: No consolidation at the lung bases. Cholelithiasis. No gallbladder wall thickening or pericholecystic fluid. Unremarkable bladder. 6 mm calcification of the capsule of the dome of the liver. Punctate calcification in the uterus. The other solid organs are unremarkable. No bowel wall thickening or dilation. A normal appendix is identified. No aneurysm. Mild calcified atherosclerotic disease. No lymphadenopathy. No ascites. No acute osseous abnormality. Impression: No acute findings. This document has been electronically signed by: Maricarmen Smith MD on 12/27/2024 18:35:01
[2024-12-27 13:16] VITALS: BP 130/63; PULSE 73; RESP 18; TEMP 36.6; O2SAT 98; BMI 45.6
--- NOTE | 2024-12-27 13:17 | ED.GENADULT ---
HPI - General Adult General Chief complaint: Abdominal Pain Stated complaint: pain on both sides Time Seen by Provider: 12/27/24 13:50 Source: patient Mode of arrival: ambulatory Limitations: no limitations History of Present Illness ED Provider: Fabián Alexis PA-C HPI narrative: 44-year-old female with medical history of asthma, anemia, migraines, presents to the ED due to bilateral back pain that radiates into abdomen. Patient states she was woken this morning by bilateral lower back pain that radiates to the front of her abdomen. Patient states abdominal pain is constant, sharp and stabbing. Patient states last menstrual period was last week, is not concerned a due to history of tubal ligation. Patient states last bowel movement was this morning and was normal in caliber and volume, is passing flatus. Patient denies fever, chest pain, shortness of breath, nausea, vomiting, diarrhea, black/tarry stool Related Data Previous Rx's ?Medication ?Instructions ?Recorded meclizine 25 mg tablet 25 mg PO TID PRN dizziness #20 tabs 06/14/20 albuterol sulfate 2.5 mg/0.5 mL 5 mg inhalation Q4H PRN shortness 12/24/21 solution for nebulization of breath or wheezing #30 ea albuterol sulfate 90 mcg/actuation 2 puff inhalation Q4-6H PRN 12/24/21 aerosol inhaler shortness of breath or wheezing #6.7 grams prednisone 20 mg tablet 40 mg (2 x 20 mg) PO DAILY 5 days 12/24/21 #10 tabs cyclobenzaprine 10 mg tablet 10 mg PO TID PRN muscle spasm 7 01/04/22 days #21 tabs amoxicillin 875 mg-potassium 1 tab PO BID #20 tabs 11/29/22 clavulanate 125 mg tablet cyclobenzaprine 5 mg tablet 5 mg PO TID PRN muscle spasm #12 12/15/22 tabs lidocaine 5 % topical patch 1 patch topical DAILY #15 ea 12/15/22 prednisone 20 mg tablet 40 mg (2 x 20 mg) PO DAILY #10 tabs 12/15/22 albuterol sulfate 90 mcg/actuation 2 puff inhalation Q4-6H PRN 05/06/23 aerosol inhaler shortness of breath or wheezing #6.7 grams benzonatate 100 mg capsule 100 mg PO TID PRN cough #14 caps 05/06/23 fluticasone propionate 50 2 spray intranasal DAILY #16 grams 05/06/23 mcg/actuation nasal spray,suspension (Flonase Allergy Relief) acetaminophen 500 mg tablet 500 mg PO Q6H PRN fever or pain 07/28/23 #20 tabs ibuprofen 600 mg tablet 600 mg PO TID PRN fever or pain 07/28/23 #20 tabs ondansetron HCl 4 mg tablet 4 mg PO Q8H PRN nausea and 07/28/23 vomiting #7 tabs naproxen 500 mg tablet 500 mg PO BID #28 tabs 02/25/24 cephalexin 500 mg capsule 500 mg PO BID #14 caps 03/06/24 doxycycline hyclate 100 mg capsule 100 mg PO BID #14 caps 03/06/24 Allergies Allergy/AdvReac Type Severity Reaction Status Date / Time No Known Allergies (No Known Allergy Verified 12/27/24 13:19 Allergies*) Review of Systems Review of Systems: CONST: Negative for fever, body aches and chills. HENT: Negative for neck pain/stiffness, headache, congestion, sore throat, swelling. EYES: Negative for discharge/pain or vision changes. RESP: Negative for cough/hemoptysis and shortness of breath. CV: Negative chest pain, difficulty breathing, palpitations. ABD: Negative nausea, vomiting. POS diffuse abd pain : Negative increase frequency, dysuria, blood in urine or stool. MUSC: Negative for muscle aches, edema. POS B/L flank pain SKIN: Negative rash, lesions/sores. NEURO: Negative headache, dizziness, weakness. Yes all other systems are reviewed and are negative [facility] Past Medical History Attestation statement: The following information was validated with the patient. Source: old records reviewed and nursing notes reviewed Medical History delivery delivered Migraine Anemia Asthma Surgical History H/O tubal ligation Social History Social History Alcohol intake: current Patient Tobacco Use Status: Never used Tobacco Advance Directives: No Advance Directives Information Provided: Yes Do you have a plan to hurt others: No Plan Physical Exam ED Vital Signs: Vital Signs - 24 hr 12/27/24 13:16 12/27/24 16:11 Temperature 97.9 F 98.0 F Pulse Rate 73 65 Respiratory Rate 18 17 Blood Pressure 130/63 128/68 Pulse Oximetry 98 98 Oxygen Delivery Method Room Air Room Air BMI result Body Mass Index 45.6 GENERAL APPEARANCE: ?AxOx4, no acute distress. HEENT: ?NC, AT. MMM. EOMI, clear conjunctiva, oropharynx clear. NECK: ?Supple without lymphadenopathy.? No stiffness or restricted ROM. HEART:? Normal rate and regular rhythm, normal S1/S2, no m/r/g LUNGS:? CTAB, moving air well. No crackles or wheezes are heard. ABDOMEN: Abdomen is diffusely tender, nondistended, mild guarding to palpation, bowel sounds heard in all 4 quadrants. Negative Ivey's sign BACK: B/L CVAT, no overlying skin changes. EXTREMITIES: ?Without cyanosis, clubbing or edema. NEUROLOGICAL: ?Grossly nonfocal. Alert and oriented, moving all 4 extremities. Observed to ambulate with normal gait. Skin: ?Warm and dry without any rash. Course Course Course Narrative: This is an RME: Additional HPI, ROS, PE not included below will be deferred to primary provider. RME assessment and note performed by: Donita Castrejon PA-C This is a [id number], with a hx of asthma, who presents to the ER with a complaint of low back pain and lower abdominal pain which started this morning. Reporting urinary frequency - but states that she always has this. No fevers, chills, nausea, vomiting, diarrhea. +CVA tenderness BL. Abd with diffuse tenderness throughout. Plan: Labs, UA Medications Administered Discontinued Medications Generic Name Dose Route Start Last Admin Trade Name Freq PRN Reason Stop Dose Admin Lactated Ringer's 1,000 mls @ 999 mls/hr 12/27/24 15:11 12/27/24 15:20 Lr IV 12/27/24 16:11 999 mls/hr .Q1H1M ONE Administration Iohexol 100 ml 12/27/24 17:04 12/27/24 17:04 Iohexol 350 Mg/Ml 100 Ml Infus..Btl IV 12/27/24 17:05 100 ml ONCE ONE Administration Ketorolac Tromethamine 15 mg 12/27/24 14:54 12/27/24 15:19 Ketorolac Tromethamine 15 Mg/Ml Vial IVPUSH 12/27/24 14:55 15 mg ONCE ONE Administration Pantoprazole Sodium 40 mg 12/27/24 14:56 12/27/24 15:19 Pantoprazole Sodium 40 Mg/10 Ml Vial IVPUSH 12/27/24 14:57 40 mg ONCE ONE Administration Medical Decision Making Medical Decision Making MDM Narrative: 44-year-old female with medical history of asthma, anemia, migraines, presents to the ED due to bilateral back pain that radiates into abdomen. Patient states she was woken this morning by bilateral lower back pain that radiates to the front of her abdomen. Patient states abdominal pain is constant, sharp and stabbing. Patient states last menstrual period was last week, is not concerned a due to history of tubal ligation. Patient states last bowel movement was this morning and was normal in caliber and volume, is passing flatus. VSS, nontoxic appearing, in no acute distress, patient is mildly uncomfortable on the stretcher, can not find comfortable position due to discomfort. On physical exam lungs clear to auscultation bilaterally, cardiac exam reveals normal rate and rhythm, no murmurs/rubs/gallops, abdomen is nondistended, diffusely tender to palpation throughout all palmer, mild guarding during exam, negative Ivey's sign. Negative peritoneal signs Labs without leukocytosis, unremarkable. Awaiting UA results. We will obtain CT abdomen and pelvis due to diffuse abdominal pain, mild guarding to evaluate for acute abdomen. Patient lab work without creatinine elevation, H&H stable, medicated with IV Toradol and IV fluids for abdominal pain. Course 17:12- UA without evidence of infection, no RBCs present- less likely pyelonephritis, nephrolithiasis patients abdominal pain has improved after IV toradol and fluids. 19:00- CT abdomen and pelvis reveals cholelithiasis without gallbladder wall thickening or pericholecystic fluid.. With a 6 mm calcification of the capsule of the dome of the liver, punctate calcification of the uterus. Patient without leukocytosis, afebrile, pain controlled with IV Toradol. I believe biliary colic is responsible for patient's symptoms. We will p.o. challenge with sugar free yovany daniel and crackers before discharge. Counseled patient on her condition, will refer her for outpatient follow up with surgery for further evaluation. I recommended patient follow up with her PCP as well to ensure improvement. I counseled patient on low-fat diet as fatty diet can exacerbate biliary colic and pain. Patient counseled on strict return precautions including fever over 100.4?, worsening abdominal pain, yellow/bilious vomiting. Differential Diagnosis Differential Diagnoses: The differential diagnosis associated with the presentation includes Pyelonephritis nephrolithiasis Biliary colic Renal colic Diverticulitis Gastritis Admission/Observation Consideration of admission/observation: Escalation of care including admission/observation considered Lab Data MDM Lab Attestation statement: I reviewed the patient's lab results. 12/27/24 13:30 12/27/24 13:30 Labs: Lab Results 12/27/24 12/27/24 Range/Units 13:30 13:53 WBC 7.7 (4.8-10.8) X10*3/uL RBC 4.13 L (4.20-5.50) X10*6/uL Hgb 13.1 (12.0-16.0) g/dl Hct 39.6 (37.0-47.0) % MCV 95.9 (80.0-98.0) fL MCH 31.7 (27.0-33.0) pg MCHC 33.1 (31.0-35.0) g/dl RDW 13.0 (11.0-16.0) % Plt Count 240 (160-400) X10*3/uL MPV 10.3 (9.4-12.3) fL Immature Gran % (Auto) 0.5 H (0.0-0.4) % Neut % (Auto) 65.3 (45-73) % Lymph % (Auto) 25.9 (20-40) % [place] % (Auto) 6.5 (2-11) % Eos % (Auto) 1.4 (0-4) % Baso % (Auto) 0.4 (0-2) % Lymph # (Auto) 2.0 (1.2-4.9) X10*3/uL [place] # (Auto) 0.5 (0.1-1.2) X10*3/uL Eos # (Auto) 0.1 (0.0-0.4) X10*3/uL Baso # (Auto) 0.0 (0.0-0.2) X10*3/uL Abs Immat Gran (auto) 0.04 H (0.00-0.03) X10*3/uL Absolute Neuts (auto) 5.0 (2.0-8.3) x10*3/uL Absolute Nucleated RBC 0.000 (0.0-0.012) X10*3/uL Nucleated RBC % (auto) 0.0 (0.0-0.2) /100WBC Sodium 140 (135-145) mmol/L Potassium 4.6 (3.3-5.1) mmol/L Chloride 108 (96-108) mmol/L Carbon Dioxide 29 (22-29) mmol/L Anion Gap 8 L (12-20) BUN 6 L (9-16) mg/dL Creatinine 0.69 (0.5-1.4) mg/dL Estim Creat Clear Calc 107.5 Estimated GFR > 60 Random Glucose 124 H (60-115) mg/dL Calcium 9.2 (8.4-10.2) mg/dL Magnesium 2.1 (1.6-2.6) mg/dL Total Bilirubin 0.3 (0.0-1.0) mg/dL Direct Bilirubin 0.1 (0.0-0.5) mg/dL AST 18 (5-31) U/L ALT 21 (0-31) U/L Alkaline Phosphatase 67 (39-117) U/L Total Protein 7.0 (6.5-8.0) g/dL Albumin 4.1 (3.5-5.0) g/dL Lipase 12 (8-78) U/L Beta HCG, Quant < 2 mIU/mL Urine Color Yellow Urine Appearance Clear Urine pH 7.0 (5.0-9.0) Ur Specific [place] 1.020 (1.005-1.025) Urine Protein Negative (Neg-Trace) mg/dL Urine Glucose (UA) Negative (Negative) mg/dL Urine Ketones Trace (Negative) mg/dL Urine Blood Negative (Negative) Urine Nitrite Negative (Negative) Ur Leukocyte Esterase Negative (Negative) Radiology Impression Discussion of test interpretation with radiology: I have reviewed the radiologist's reading. Radiologist Impression: CT Abdomen/pelvis Findings: No consolidation at the lung bases. Cholelithiasis. No gallbladder wall thickening or pericholecystic fluid. Unremarkable bladder. 6 mm calcification of the capsule of the dome of the liver. Punctate calcification in the uterus. The other solid organs are unremarkable. No bowel wall thickening or dilation. A normal appendix is identified. No aneurysm. Mild calcified atherosclerotic disease. No lymphadenopathy. No ascites. No acute osseous abnormality. Impression: No acute findings. This document has been electronically signed by: Maricarmen Smith MD on 12/27/2024 18:35:01 Dictated By: Maricarmen Babb MD Signed By: <Electronically signed by Maricarmen Babb MD in [place]> 12/27/24 1836 External Record Review External record reviewed: Inpatient record, Office record and Outpatient record Chronic Conditions Patient?s care impacted by: Other (Asthma) Discharge Plan Discharge Clinical Impression: Cholelithiasis Patient Disposition: Home, Self-Care Instructions: Gallstones (ED), Gallbladder Ejection Fraction (DC) Additional Instructions: You were evaluated in the emergency department today due to abdominal pain. Your lab work was reassuring, and did not indicate any infection. Your liver function tests which can be elevated with gallbladder issues were within normal range. Your urinary analysis was negative for infection or blood cells that would indicate possible kidney stones. CT imaging of your abdomen and pelvis revealed stones within the gallbladder, without evidence of the gallbladder being infected. Incidentally this imaging also revealed a 6 mm calcification of the liver, and calcification in the uterus these findings are usually benign, but I encourage you to follow up with your PCP for further evaluation if needed. To manage stones within the gallbladder, you should stick to a low-fat diet as fried and greasy foods can irritate the gallbladder making her abdominal pain worse. I have referred you to the [facility] surgical team for further evaluation. The office will not call you, you need to call the office tomorrow morning for an appointment. Please return to the emergency department if you experience fever over 100.4?, worsening abdominal pain, yellow/bilious vomiting, diarrhea, blood in the stool, chest pain, shortness of breath, or any new/concerning/worsening symptoms. Prescriptions: No Action meclizine 25 mg tablet 25 mg PO TID PRN (Reason: dizziness) Qty: 20 0RF prednisone 20 mg tablet 40 mg PO DAILY 5 Days Qty: 10 0RF albuterol sulfate 90 mcg/actuation HFA aerosol inhaler 2 puff inhalation Q4-6H PRN (Reason: shortness of breath or wheezing) Qty: 6.7 0RF albuterol sulfate 2.5 mg/0.5 mL solution for nebulization 5 mg inhalation Q4H PRN (Reason: shortness of breath or wheezing) Qty: 30 0RF cyclobenzaprine 10 mg tablet 10 mg PO TID PRN (Reason: muscle spasm) 7 Days Qty: 21 0RF prednisone 20 mg tablet 40 mg PO DAILY Qty: 10 0RF cyclobenzaprine 5 mg tablet 5 mg PO TID PRN (Reason: muscle spasm) Qty: 12 0RF lidocaine 5 % adhesive patch,medicated 1 patch topical DAILY Qty: 15 0RF Rx Instructions: leave on most painful area for up to 12 hrs fluticasone propionate [Flonase Allergy Relief] 50 mcg/actuation spray,suspension 2 spray intranasal DAILY Qty: 16 0RF Rx Instructions: administer into each nostril benzonatate 100 mg capsule 100 mg PO TID PRN (Reason: cough) Qty: 14 0RF albuterol sulfate 90 mcg/actuation HFA aerosol inhaler 2 puff inhalation Q4-6H PRN (Reason: shortness of breath or wheezing) Qty: 6.7 0RF cephalexin 500 mg capsule 500 mg PO BID Qty: 14 0RF doxycycline hyclate 100 mg capsule 100 mg PO BID Qty: 14 0RF amoxicillin-pot clavulanate 875-125 mg tablet 1 tab PO BID Qty: 20 0RF acetaminophen 500 mg tablet 500 mg PO Q6H PRN (Reason: fever or pain) Qty: 20 0RF ibuprofen 600 mg tablet 600 mg PO TID PRN (Reason: fever or pain) Qty: 20 0RF ondansetron HCl 4 mg tablet 4 mg PO Q8H PRN (Reason: nausea and vomiting) Qty: 7 0RF naproxen 500 mg tablet 500 mg PO BID Qty: 28 0RF Referrals: [facility] General Surgeons [Provider Group, General Surgery] Referral Note: cholelithiasis on CT, patient with biliary colic Print Language: [place]
[2024-12-27 13:34] LABS: MANUAL DIFF FLAG NO
[2024-12-27 13:36] LABS: Hematocrit 39.6 % (37.0-47.0); Hemoglobin 13.1 g/dl (12.0-16.0); Imm Gran Abs Auto 0.04 X10*3/uL (0.00-0.03); Imm Gran Pct Auto 0.5 % (0.0-0.4); Lymphocytes Absolute Auto 2.0 X10*3/uL (1.2-4.9); Mean Corpuscular HGB Conc 33.1 g/dl (31.0-35.0); Mean Corpuscular Hemoglobin 31.7 pg (27.0-33.0); Mean Corpuscular Volume 95.9 fL (80.0-98.0); NRBC Abs Auto 0.000 X10*3/uL (0.0-0.012); NRBC Pct Auto 0.0 /100WBC (0.0-0.2); Platelet Count 240 X10*3/uL (160-400); Red Blood Count 4.13 X10*6/uL (4.20-5.50); White Blood Count 7.7 X10*3/uL (4.8-10.8)
[2024-12-27 14:00] LABS: Appearance Urine Clear; Glucose Urine UA Negative (Negative); PH 7.0 (5.0-9.0); Specific Gravity - Urine 1.020 (1.005-1.025)
[2024-12-27 14:07] LABS: Alanine Aminotransferase 21 U/L (0-31); Albumin Level 4.1 g/dL (3.5-5.0); Alkaline Phosphatase 67 U/L (39-117); Anion Gap 8 (12-20); Aspartate Amino Transferase 18 U/L (5-31); Blood Urea Nitrogen 6 mg/dL (9-16); Calcium 9.2 mg/dL (8.4-10.2); Carbon Dioxide 29 mmol/L (22-29); Chloride 108 mmol/L (96-108); Creatinine Clr Calc Pharmacy 107.5; Estimated Glomerular Filt Rate > 60; Lipase 12 U/L (8-78); Magnesium 2.1 mg/dL (1.6-2.6); Potassium 4.6 mmol/L (3.3-5.1); Sodium 140 mmol/L (135-145); Total Protein 7.0 g/dL (6.5-8.0)
--- OUTSIDE RECORDS SUMMARY | 2024-12-27 14:08 | XMS_ITS | Clinical Summary ---
Author Organization [facility] Address [address] [place] [address] Phone Care Team Providers Care Fire Marshal Name Role Phone Physician, Pcp Unknown Primary Care Provider Krystal vailable Allergies No known active allergies Medical History Medical History Date Comments Asthma Social History Tobacco Use Types Packs/Day Years Used Date Smoking Tobacco: Every Day Cigarettes 0.3 33.6 Started: 1991 Smokeless Tobacco: Never Tobacco Cessation:Ready to Q uit: Not Asked; Counseling Given: Not Answered Alcohol Use Standard Drinks/Week Comments Never 0 (1 standard drink = 0.6 oz pur e alcohol) Comments Unknown Sex and Gender Information Value Date Recorded Sex Assigned at Not on file Legal Sex Female 12:15 AM EST Gender Identity Not on file Sexual Orientation Not on file Obstetrics History Last Filed Vital Signs Vital Sign Reading Time Taken Comments Blood Pressure 144/80 05/23/2024 9:06 AM EST Pulse 72 05/23/2024 9:06 AM EST Temperature 36.5 C (97.7 F) 05/23/2024 9:06 AM EST Respiratory Rate 18 05/23/2024 9:06 AM EST Oxygen Saturation 100% 05/23/2024 9:06 AM EST Inhaled Oxygen Concentration - - Weight 101 kg (222 lb) 05/23/2024 9:06 AM EST Height 149.9 cm (4' 11 ) 05/23/2024 9:06 AM EST Body Mass Index 44.84 05/23/2024 9:06 AM EST Plan of Treatment Health Maintenance Due Date Last Done Comments Hepatitis B Vaccines (3 of 3 - 19+ 3-dose series) 06/15/2013 04/20/2013, 11/08/2012 Breast Cancer Screening 03/02/2020 03/02/2018 COVID-19 Vaccine ( season) 2024 06/17/2022, 03/09/2021, 02/16/2021 Colorectal Cancer Screening: Colonoscopy 05/23/2024 HIV Screening 05/23/2024 Hepatitis C Screening 05/23/2024 Social Influencers of Health Screening 05/23/2024 Depression Screening 06/06/2024 Influenza Vaccine (#1) 2025 , 06/17/2022, 04/26/2020, Additional history exists Cervical Cancer Screening: Pap Smear 05/09/2027 05/09/2024, 09/15/2017, 09/15/2017 Cholesterol Screening (Lipid Panel) 05/09/2029 05/09/2024 DTaP,Tdap,and Td Vaccines (3 - Td or Tdap) 06/17/2032 06/17/2022, 2010 Pneumococcal Vaccine: Pediatrics (0 to 5 Years) and At-Risk Patients (6 to 49 Years) Completed 12/28/2021, 03/26/2013 HIB Vaccines Aged Out No longer eligi ble based on patient's age to complete this topic HPV Vaccines Aged Out No longer eligi ble based on patient's age to complete this topic Hepatitis A Vaccines Aged Out No long er eligible based on patient's age to complete this topic IPV Vaccines Aged Out No longer eligi ble based on patient's age to complete this topic MMR Vaccines Aged Out No longer eligi ble based on patient's age to complete this topic Meningococcal ACWY Vaccine Aged Out N o longer eligible based on patient's age to complete this topic Meningococcal B Vaccine Aged Out No l onger eligible based on patient's age to complete this topic RSV Immunization Patients Under 20 months Aged Out No longer eligible based on patient's age to complete this topic Varicella Vaccines Aged Out No longer eligible based on patient's age to complete this topic Procedures Procedure Name Priority Date/Time Associated Diagnosis Comments CHANELLE SCREENING DIGITAL Routine 03/02/2018 4:31 PM EDT Encounter for screening mammogram for malignant neoplasm of breast PAP SMEAR Routine 09/15/2017 from Last 3 Months or Most Recently Relevant to Health Maintenance Results * CHANELLE SCREENING DIGITAL (03/02/2018 4:31 PM EDT) Anatomical Region Laterality Modality Mammography 03/02/2018 9:59 AM EDT Narrative 03/02/2018 4:31 PM EDT [facility] Diagnostic Imaging Department [address] [place] [address] Patient: BROWNINGRAFAELA Daron /Age/Sex: 1980 - 38 - F Unit#: [id number] Location/Status: SPDIMAM/REG CLI Mnemonic/Ordering Site: [facility] Ordering Physician: SAHARA KULKARNI CNM [facility] Screening Digital - 03/02/18 - 1031 History: Breast cancer screening. Technique: Bilateral digital mammography. Conventional CC and MLO projections with tomosynthesis MLO views and computer aided detection. Comparison: None. Study represents a baseline examination.. Findings: Breast density: Heterogeneous, potentially obscuring small lesions, category c density. 1.5 cm AP diameter rounded asymmetry within the mid superior right breast MLO projection, persisting on tomography (image 35/76) has possible correlate within the mid lateral breast as revealed on CC projection. No associated microcalcification or architectural distortion. No concerning focal finding on the left. Impression: 1.5 cm anterior mid to upper right breast asymmetry noted on MLO projection conventional views as well as tomography is incompletely evaluated. Recommend spot compression view right MLO projection and CC projection tomography potentially to be followed by ultrasound. Patient will be contacted directly to arrange for supplementary imaging. BIRADS Category 0: Incomplete. Needs further imaging evaluation, [id number], [id number] Patient information entered into a reminder system with a target date for the next mammogram. PQRI [id number] Dictating Physician: CHENG KITCHEN MD Electronically Signed by: CHENG KITCHEN MD Dic Date/Time: 03/02/18 161 Sign date/Time: 03/02/18 163 Procedure Note Cheng Kitchen MD - 05/25/2022 [facility] Diagnostic Imaging Department [address] [place] [address] Patient: RAFAELA BROWNING Daron /Age/Sex: 1980 - 38 - F Unit#: [id number] Location/Status: [facility] CLI Mnemonic/Ordering Site: [facility] Ordering Physician: SAHARA KULKARNI CNM Chanelle Screening Digital - 03/02/18 - 1031 History: Breast cancer screening. Technique: Bilateral digital mammography. Conventional CC and MLOprojections with tomosynthesis MLO views and computer aided detection. Comparison: None. Study represents a baseline examination.. Findings: Breast density: Heterogeneous, potentially obscuring smalllesions, category c density. 1.5 cm AP diameter rounded asymmetry within the mid superior right breastMLO projection, persisting on tomography (image 35/76) has possible correlatewithin the mid lateral breast as revealed on CC projection. No associated microcalcification or architectural distortion. No concerning focal finding on the left. Impression: 1.5 cm anterior mid to upper right breast asymmetry noted onMLO projection conventional views as well as tomography is incompletelyevaluated. Recommend spot compression view right MLO projection and CC projection tomography potentially to be followed by ultrasound. Patient will be contacted directly to arrange for supplementary imaging. BIRADS Category 0: Incomplete. Needs further imaging evaluation, [id number], [id number] Patient information entered into a reminder system with a target date forthe next mammogram. PQRI [id number] Dictating Physician: CHENG KITCHEN MD Electronically Signed by: CHENG KITCHEN MD Dic Date/Time: 03/02/18 1617 Sign date/Time: 03/02/18 1631 Sahara Kulkarni CNM IMG BI PROCEDURES Final Resul t * Pap smear (09/15/2017) 09/15/2017 Narrative HISTORICAL TESTING LAB RESULTING AGENCY - 09/29/2017 2:58 PM EDT [id number] THINPREP PAP, IMAGED AND CELL BLOCK: NEGATIVE FOR SQUAMOUS INTRAEPITHELIAL LESION AND MALIGNANCY . ABUNDANT RED BLOOD CELLS ARE PRESENT. RESULTS OF APTIMA HIGH-RISK HPV: HIGH RISK: POSITIVE (SEROTYPES 16,18,31,33,35,39,45,51,52,56,58,59,66,68) RESULTS OF APTIMA HPV 16 AND HPV 18/45 GENOTYPE ASSAY: HPV TYPE 16: NEGATIVE HPV TYPES 18/45: NEGATIVE LEDA DOMINGO(ASCP) (CASE SCREENED 09 21 2017) ROBY ELIAS M.D., PATHOLOGIST (CASE ELECTRONICALLY SIGNED 09 28 2017) ADEQUACY: SATISFACTORY. SQUAMOCOLUMNAR TRANSFORMATION ZONE ABSENT. SOURCE: THINPREP PAP HPV ANY DX: REFLEX 16 AND 18, CERVICAL, IMAGED: CLINICAL INFORMATION: HPV ANY DIAGNOSIS. HORMONES, Z12.4, LMP 09/15/17. Sahara Kulkarni CNM LAB CYTOLOGY ORDERABLES Final Result HISTORICAL TESTING LAB RESULTING AGENCY from Last 3 Months or Most Recently Relevant to Health Maintenance Insurance MEDICA[place] - [place] Care Teams Fire Marshal Relationship Specialty Start Date End Date Physician, Pcp Unknown PCP - General 05/23/24
--- OUTSIDE RECORDS SUMMARY | 2024-12-27 14:08 | XMS_ITS | Encounter Summary ---
Author Organization [facility] Address [address] [place] [address] Drive [address] [place] [address] Phone Care Team Providers Care Long Distance Operator Name Role Phone Marcelina Irizarry MD Unavailable B Jr Higgins MD Primary Care Provider [phone] Encounter Details Date Type Department Care Team (Late st Contact Info) Description 12/12/2024 Procedure Pass [facility] [address] [place] [address] Social History Tobacco Use Types Packs/Day Years Used Date Smoking Tobacco: Every Day Cigarettes 0.3 34.6 Started: 06/06/1990 Smokeless Tobacco: Never Alcohol Use [...] high school, GED, job training, learning the Fijian language, technical skills, or developing parenting skills)? [...] Intimate Partner Violence Answer Date R ecorded Denied Basic Needs Not on file 05/02/2024 In the past 12 months have y ou been in a relationship with a person who hurts, threatens, or tries to control you? No 05/02/2024 Worried food would run out Not on file 05/02 In the past 12 months have y ou been in a relationship with a person who hurts, threatens, or tries to control you? No 05/02/2024 Comments No Sex and Gender Information Value Date Recorded Sex Assigned at Female 12/16/2019 1:44 AM EDT Legal Sex Female 1:22 PM EDT Gender Identity Female 12/16/2019 1:44 AM EDT Sexual Orientation Straight 12/16/2019 1: 44 AM EDT documented as of this encounter Plan of Treatment Upcoming Encounters Date Type Department Care Team (Late st Contact Info) Description 12/28/2024 11:15 AM EDT Office Visit [facility] [address] [facility] [address] [place] [address] Jr Higgins MD [address] [place] [address] [email or web address] documented as of this encounter Visit Diagnoses Not on filedocumented in this encounter Additional Health Concerns Assessment Noted Time PHQ-9 Depression Total Score: 17 024 7:43 PM EST PHQ-2 Depression Total Score: 6 05/02/20 24 10:29 PM EST documented as of this encounter Care Teams Long Distance Operator Relationship Specialty Start Date End Date Jr Higgins MD [email or web address] PCP - General Internal Medicine 12/11/21 Marcelina Irizarry MD [email or web address] Obstetrics and Gynecology 11/13/18 documented as of this encounter Additional Source Comments The information contained in this document represents components of the legal health record. It is not the complete legal health record.[facility]
--- OUTSIDE RECORDS SUMMARY | 2024-12-27 14:08 | XMS_ITS | Clinical Summary ---
Author Organization [facility] Address [address] [place] [address] Care Team Providers Care C Programmer Name Role Phone Pcp, No Primary Care Provider Unavailabl e Social History Tobacco Use Types Packs/Day Years Used Date Smoking Tobacco: Never Assessed Comments Unknown Sex and Gender Information Value Date Recorded Sex Assigned at Not on file Legal Sex Female 2:12 PM EDT Gender Identity Not on file Sexual Orientation Not on file Plan of Treatment Health Maintenance Due Date Last Done Comments Hepatitis C Virus Screening 1978 HIV Screening 1991 DTaP/Tdap/Td Vaccines (1 - Tdap) 1997 Hepatitis B Vaccines (1 of 3 - 19+ 3-dose series) 1997 Pap Smear (Ages 21-65) 1999 Mammogram 2018 Colonoscopy 2023 COVID-19 Vaccine (1 - 2023-2 5 season) 2024 Influenza Vaccine 01/04/2025 Pneumococcal Vaccine: Pediat meghan (0-5 Years) and At-Risk Patients (6 to 49 Years) Aged Out No longer eligible b ased on patient's age to complete this topic Insurance MEDICAID OUT OF STATE [facility] on file Care Teams C Programmer Relationship Specialty Start Date End Date Pcp, No PCP - General General Medicine 12/02/20
[2024-12-27] MEDS: Lactated Ringers 1,000 ML 999 ML IV (15:20)
[2024-12-27 16:11] VITALS: BP 128/68; PULSE 65; RESP 17; TEMP 36.7; O2SAT 98
[2024-12-27] MEDS: iohexoL 350 MG/ML 100 ML INFUS..BTL IV (17:04)
[2024-12-27 19:18] VITALS: BP 128/68; PULSE 65; RESP 17; TEMP 36.7; O2SAT 98
[2024-12-27 19:22] VITALS: BP 145/68; PULSE 68; RESP 16; TEMP 36.3; O2SAT 96
== END 2024-12-27 19:18 | disposition home or self-care (01) ==
PROVIDERS: Physician Assistant Medical; Emergency Provider Emergency Medicine
DX: K80.50 Calculus of bile duct without cholangitis or cholecystitis without obstruction (principal); M54.9 Dorsalgia, unspecified; R10.9 Unspecified abdominal pain
CPT/HCPCS: 36415; 74177; 80048; 80076; 81003; 83690; 83735; 84702; 85025; 96361; 96374; 96375; 99284; J1885; J2470; J7120; Q9967

== ENCOUNTER → 2024-12-27 14:53 | Outpatient (BNV) | payer MEDICAID, SELFPAY | PROVIDERS: Emergency Provider Emergency Medicine; Visit Provider Radiology Diagnostic Radiology | DX: K80.80 Other cholelithiasis without obstruction (principal) | CPT/HCPCS: 74177 ==

== ENCOUNTER 2025-03-31 13:26 | Emergency (ER) | payer MEDICAID, SELFPAY ==
--- OUTSIDE RECORDS SUMMARY | 2024-12-12 16:55 | XMS_ITS | Encounter Summary ---
Author Organization [facility] Address [address] [place] [address] [place] [id number] Phone Care Team Providers Care Assistant Professor Of Life Sciences Name Role Phone Marcelina Irizarry MD Unavailable B Jr Higgins MD Primary Care Provider [phone] Encounter Details Date Type Department Care Team (Late st Contact Info) Description 12/12/2024 4:55 PM EDT Hospital Encounter [facility] [address] [place] [address] Rishi Farmer MD, PhD [address] [place] [phone] [email or web address] Social History Tobacco Use Types Packs/Day Years Used Date Smoking Tobacco: Every Day Cigarettes 0.3 34.8 Started: 06/06/1990 Smokeless Tobacco: Never Alcohol Use Standard Drinks/Week Comments No 0 (1 standard drink = 0.6 oz pur e alcohol) Child or Family Care Answer Date Record ed Do you have problems with on e of the following making it difficult for you to work, study, or receive health care? No 04/19/2024 Education Answer Date Recorded Are you interested in help w ith more adult education (for example, completing high school, GED, job training, learning the [place] language, technical skills, or developing parenting skills)? No 04/19/2024 Are you concerned about learning? Not on file 04/19/2024 No 04/19/2024 Yes 04/19/2024 Food Answer Date Recorded Within the past 6 months we worried whether our food would run out before we got money to buy more. Never True 04/19/2024 Within the past 6 months the food we bought just didn't last and we didn't have enough money to get more. Never True Residential Stability Answer Date Recor ded What is your housing situation today? I have ricardo [place] 04/19/2024 How many times have you move d in the past 12 months? Zero (I did not move) 04/19/2024 Paying for Meds Answer Date Recorded Do you have trouble paying for medicines? No 04/19/2024 Paying Utility Bills Answer Date Record ed Do you have trouble paying your heating or elect ricity bill? No 04/19/2024 Transportation Answer Date Recorded Has the lack of transportati on kept you from medical appointments or from getting medications? No 04/19/2024 Unemployment Answer Date Recorded Are you currently unemployed or working on a part-time or temporary basis, and looking for work? No 07/16/2022 Digital Access Answer Date Recorded No 04/19/2024 Yes 04/19/2024 Do you have reliable internet access at home? Ye s 04/19/2024 Do you have a device (e.g., phone, tablet, computer) with a working camera? Yes 04/19/2024 SNAP & WIC Answer Date Recorded Do you receive benefits from SNAP (the Supplemental Nutrition Assistance Program) or the Food Stamp Program? Yes 04/19/2024 SNAP is a free program, interested in learning m ore? Not on file 04/19/2024 Can we help you enroll in SNAP? Not on file 04/19/2024 Benefits received from WIC? Not on file 04/06 WIC is a free program, interested in learning mo re? Not on file 04/19/2024 Can we help you enroll in WIC? Not on file 1 06/19/2023 Intimate Partner Violence Answer Date R ecorded Are you denied basic needs s uch as food, clothing, or medical care? No 01/11/2025 In the past 12 months have y ou been in a relationship with a person who hurts, threatens, or tries to control you? No 01/11/2025 Are you denied basic needs s uch as food, clothing, or medical care? No 01/11/2025 In the past 12 months have y ou been in a relationship with a person who hurts, threatens, or tries to control you? No 01/11/2025 Comments No Sex and Gender Information Value Date Recorded Sex Assigned at Female 12/16/2019 1:44 AM EDT Legal Sex Female 1:22 PM EDT Gender Identity Female 12/16/2019 1:44 AM EDT Sexual Orientation Straight 12/16/2019 1: 44 AM EDT documented as of this encounter Plan of Treatment Not on file documented as of this encounter Visit Diagnoses Not on filedocumented in this encounter Additional Health Concerns Assessment Noted Time PHQ-9 Depression Total Score: 17 024 7:43 PM EST PHQ-2 Depression Total Score: 6 05/02/20 24 10:29 PM EST documented as of this encounter Care Teams Assistant Professor Of Life Sciences Relationship Specialty Start Date End Date Jr Higgins MD [email or web address] PCP - General Internal Medicine 12/11/21 Marcelina Irizarry [email or web address] Obstetrics and Gynecology 11/13/18 documented as of this encounter Additional Source Comments The information contained in this document represents components of the legal health record. It is not the complete legal health record.[facility]
--- NOTE | ~2025-03-31 | XR_ITS ---
CLINICAL HISTORY: atraumatic hip pain 3 view, pelvis and left hip Comparison: None provided Findings: The bones are intact. No arthritic changes. The soft tissues are unremarkable. IMPRESSION: No acute findings. This document has been electronically signed by: Jerrell Sewell MD on 03/31/2025 15:01:36
[2025-03-31 13:29] VITALS: BP 125/59; PULSE 86; RESP 18; TEMP 36.6; O2SAT 97; BMI 44.8
--- NOTE | 2025-03-31 13:31 | ED.GENADULT ---
HPI - General Adult General Chief complaint: Extremity Injury, Lower Stated complaint: L Hip Pain, no inj, lightheadedness Related Data Previous Rx's ?Medication ?Instructions ?Recorded meclizine 25 mg tablet 25 mg PO TID PRN dizziness #20 tabs 06/14/20 albuterol sulfate 2.5 mg/0.5 mL 5 mg inhalation Q4H PRN shortness 12/24/21 solution for nebulization of breath or wheezing #30 ea albuterol sulfate 90 mcg/actuation 2 puff inhalation Q4-6H PRN 12/24/21 aerosol inhaler shortness of breath or wheezing #6.7 grams prednisone 20 mg tablet 40 mg (2 x 20 mg) PO DAILY 5 days 12/24/21 #10 tabs cyclobenzaprine 10 mg tablet 10 mg PO TID PRN muscle spasm 7 01/04/22 days #21 tabs amoxicillin 875 mg-potassium 1 tab PO BID #20 tabs 11/29/22 clavulanate 125 mg tablet cyclobenzaprine 5 mg tablet 5 mg PO TID PRN muscle spasm #12 12/15/22 tabs lidocaine 5 % topical patch 1 patch topical DAILY #15 ea 12/15/22 prednisone 20 mg tablet 40 mg (2 x 20 mg) PO DAILY #10 tabs 12/15/22 albuterol sulfate 90 mcg/actuation 2 puff inhalation Q4-6H PRN 05/06/23 aerosol inhaler shortness of breath or wheezing #6.7 grams benzonatate 100 mg capsule 100 mg PO TID PRN cough #14 caps 05/06/23 fluticasone propionate 50 2 spray intranasal DAILY #16 grams 05/06/23 mcg/actuation nasal spray,suspension (Flonase Allergy Relief) acetaminophen 500 mg tablet 500 mg PO Q6H PRN fever or pain 07/28/23 #20 tabs ibuprofen 600 mg tablet 600 mg PO TID PRN fever or pain 07/28/23 #20 tabs ondansetron HCl 4 mg tablet 4 mg PO Q8H PRN nausea and 07/28/23 vomiting #7 tabs naproxen 500 mg tablet 500 mg PO BID #28 tabs 02/25/24 cephalexin 500 mg capsule 500 mg PO BID #14 caps 03/06/24 doxycycline hyclate 100 mg capsule 100 mg PO BID #14 caps 03/06/24 Allergies Allergy/AdvReac Type Severity Reaction Status Date / Time No Known Allergies (No Known Allergy Verified 03/31/25 13:34 Allergies*) [facility] Past Medical History Medical History delivery delivered Migraine Anemia Asthma Surgical History H/O tubal ligation Social History Social History Alcohol intake: current Patient Tobacco Use Status: Never used Tobacco Advance Directives: No Advance Directives Information Provided: No Physical Exam ED Vital Signs: BMI result Body Mass Index 44.8 Course Course Course Narrative: Kala Edgarchristiano LACQUER MACHINE FEEDER 03/31 5356 This is a rapid medical exam. Deferred additional HPI, ROS, PE to primary provider 45 yo female with no PMH of left hip pain x 3 days with no known injury or trauma. Also having dizziness worsened with position changes. Will check x-rays, labs VSS Medical Decision Making Lab Data 03/31/25 13:43 03/31/25 13:43 Labs: Lab Results 03/31/25 Range/Units 13:43 WBC 7.1 (4.8-10.8) X10*3/uL RBC 4.21 (4.20-5.50) X10*6/uL Hgb 13.2 (12.0-16.0) g/dl Hct 39.7 (37.0-47.0) % MCV 94.3 (80.0-98.0) fL MCH 31.4 (27.0-33.0) pg MCHC 33.2 (31.0-35.0) g/dl RDW 13.1 (11.0-16.0) % Plt Count 224 (160-400) X10*3/uL MPV 10.3 (9.4-12.3) fL Immature Gran % (Auto) 0.4 (0.0-0.4) % Neut % (Auto) 61.5 (45-73) % Lymph % (Auto) 30.0 (20-40) % Ada % (Auto) 5.6 (2-11) % Eos % (Auto) 2.1 (0-4) % Baso % (Auto) 0.4 (0-2) % Lymph # (Auto) 2.1 (1.2-4.9) X10*3/uL Ada # (Auto) 0.4 (0.1-1.2) X10*3/uL Eos # (Auto) 0.2 (0.0-0.4) X10*3/uL Baso # (Auto) 0.0 (0.0-0.2) X10*3/uL Abs Immat Gran (auto) 0.03 (0.00-0.03) X10*3/uL Absolute Neuts (auto) 4.4 (2.0-8.3) x10*3/uL Absolute Nucleated RBC 0.000 (0.0-0.012) X10*3/uL Nucleated RBC % (auto) 0.0 (0.0-0.2) /100WBC Sodium 142 (135-145) mmol/L Potassium 4.2 (3.3-5.1) mmol/L Chloride 107 (96-108) mmol/L Carbon Dioxide 25 (22-29) mmol/L Anion Gap 14 (12-20) BUN 7 L (9-16) mg/dL Creatinine 0.73 (0.5-1.4) mg/dL Estim Creat Clear Calc 99.5 Estimated GFR > 60 Random Glucose 164 H (60-115) mg/dL Calcium 9.0 (8.4-10.2) mg/dL Magnesium 2.1 (1.6-2.6) mg/dL Total Bilirubin 0.2 (0.0-1.0) mg/dL Direct Bilirubin < 0.2 (0.0-0.5) mg/dL AST 19 (5-31) U/L ALT 23 (0-31) U/L Alkaline Phosphatase 67 (39-117) U/L Total Protein 7.3 (6.5-8.0) g/dL Albumin 4.1 (3.5-5.0) g/dL Discharge Plan Discharge Clinical Impression: Diagnosis unknown Patient Disposition: Left W/O Completing Treatment Prescriptions: No Action meclizine 25 mg tablet 25 mg PO TID PRN (Reason: dizziness) Qty: 20 0RF prednisone 20 mg tablet 40 mg PO DAILY 5 Days Qty: 10 0RF albuterol sulfate 90 mcg/actuation HFA aerosol inhaler 2 puff inhalation Q4-6H PRN (Reason: shortness of breath or wheezing) Qty: 6.7 0RF albuterol sulfate 2.5 mg/0.5 mL solution for nebulization 5 mg inhalation Q4H PRN (Reason: shortness of breath or wheezing) Qty: 30 0RF cyclobenzaprine 10 mg tablet 10 mg PO TID PRN (Reason: muscle spasm) 7 Days Qty: 21 0RF prednisone 20 mg tablet 40 mg PO DAILY Qty: 10 0RF cyclobenzaprine 5 mg tablet 5 mg PO TID PRN (Reason: muscle spasm) Qty: 12 0RF lidocaine 5 % adhesive patch,medicated 1 patch topical DAILY Qty: 15 0RF Rx Instructions: leave on most painful area for up to 12 hrs fluticasone propionate [Flonase Allergy Relief] 50 mcg/actuation spray,suspension 2 spray intranasal DAILY Qty: 16 0RF Rx Instructions: administer into each nostril benzonatate 100 mg capsule 100 mg PO TID PRN (Reason: cough) Qty: 14 0RF albuterol sulfate 90 mcg/actuation HFA aerosol inhaler 2 puff inhalation Q4-6H PRN (Reason: shortness of breath or wheezing) Qty: 6.7 0RF cephalexin 500 mg capsule 500 mg PO BID Qty: 14 0RF doxycycline hyclate 100 mg capsule 100 mg PO BID Qty: 14 0RF amoxicillin-pot clavulanate 875-125 mg tablet 1 tab PO BID Qty: 20 0RF acetaminophen 500 mg tablet 500 mg PO Q6H PRN (Reason: fever or pain) Qty: 20 0RF ibuprofen 600 mg tablet 600 mg PO TID PRN (Reason: fever or pain) Qty: 20 0RF ondansetron HCl 4 mg tablet 4 mg PO Q8H PRN (Reason: nausea and vomiting) Qty: 7 0RF naproxen 500 mg tablet 500 mg PO BID Qty: 28 0RF Discharge Date/Time: 03/31/25 18:15
[2025-03-31 13:47] LABS: MANUAL DIFF FLAG NO
[2025-03-31 13:49] LABS: Hematocrit 39.7 % (37.0-47.0); Hemoglobin 13.2 g/dl (12.0-16.0); Imm Gran Abs Auto 0.03 X10*3/uL (0.00-0.03); Imm Gran Pct Auto 0.4 % (0.0-0.4); Lymphocytes Absolute Auto 2.1 X10*3/uL (1.2-4.9); Mean Corpuscular HGB Conc 33.2 g/dl (31.0-35.0); Mean Corpuscular Hemoglobin 31.4 pg (27.0-33.0); Mean Corpuscular Volume 94.3 fL (80.0-98.0); NRBC Abs Auto 0.000 X10*3/uL (0.0-0.012); NRBC Pct Auto 0.0 /100WBC (0.0-0.2); Platelet Count 224 X10*3/uL (160-400); Red Blood Count 4.21 X10*6/uL (4.20-5.50); White Blood Count 7.1 X10*3/uL (4.8-10.8)
[2025-03-31 14:14] LABS: Alanine Aminotransferase 23 U/L (0-31); Albumin Level 4.1 g/dL (3.5-5.0); Alkaline Phosphatase 67 U/L (39-117); Anion Gap 14 (12-20); Aspartate Amino Transferase 19 U/L (5-31); Blood Urea Nitrogen 7 mg/dL (9-16); Calcium 9.0 mg/dL (8.4-10.2); Carbon Dioxide 25 mmol/L (22-29); Chloride 107 mmol/L (96-108); Creatinine Clr Calc Pharmacy 99.5; Estimated Glomerular Filt Rate > 60; Magnesium 2.1 mg/dL (1.6-2.6); Potassium 4.2 mmol/L (3.3-5.1); Sodium 142 mmol/L (135-145); Total Protein 7.3 g/dL (6.5-8.0)
--- OUTSIDE RECORDS SUMMARY | 2025-03-31 18:13 | XMS_ITS | Encounter Summary ---
Author Organization [facility] Address [address] [place] [address] [address] [place] [address] Phone Care Team Providers Care Lye Treater Name Role Phone Marcelina Irizarry MD Unavailable B Jr Higgins MD Primary Care Provider [phone] Encounter Details Date Type Department Care Team (Late st Contact Info) Description 12/12/2024 Procedure Pass [facility] [address] [place] [address] Social History Tobacco Use Types Packs/Day Years [...] high school, GED, job training, learning the Puerto Rican language, technical skills, or developing parenting skills)? [...] documented as of this encounter Care Teams Lye Treater Relationship Specialty Start Date End Date Jr Higgins MD [email or web address] PCP - General Internal Medicine 12/11/21 Marcelina Irizarry [email or web address] Obstetrics and Gynecology 11/13/18 documented as of this encounter Additional Source Comments The information contained in this document represents components of the legal health record. It is not the complete legal health record.[facility]
--- OUTSIDE RECORDS SUMMARY | 2025-03-31 18:13 | XMS_ITS | Encounter Summary ---
Author Organization [facility] Address [address] [place] [address] [place] [address] Phone Care Team Providers Care Double Surface Operator Name Role Phone Marcelina Irizarry MD Unavailable B Alfa Correa MD Unavailable Alfa Correa MD Unavailable Miriam Yousif MD Primary Care Provider [phone] Miiram Yousif MD Unavailable [phone] Jr Higgins MD Primary Care Provider [phone] Miriam Yousif MD Unavailable [phone] Jr Higgins MD Unavailable [phone] Jr Higgins MD Unavailable [phone] Encounter Details Date Type Department Care Team (Late st Contact Info) Description 11/20/2019 Procedure Pass [facility] [place] [address] [place] [address] Social History Tobacco Use Types Packs/Day Years Used Date Smoking Tobacco: Former Cigarettes 0.3 28.1 1 991 - 07/28/2018 Smokeless Tobacco: Never Comments:using nicotine patc h Alcohol Use Standard Drinks/Week Comments No 0 (1 standard drink = 0.6 oz pur e alcohol) Child or Family Care Answer Date Record ed Do you have problems with on e of the following making it difficult for you to work, study, or receive health care? No 09/12/2018 Education Answer Date Recorded Are you interested in help w ith more adult education (for example, completing high school, GED, job training, learning the Israeli language, technical skills, or developing parenting skills)? No 09/12/2018 Are you concerned about learning? Not on file 09/12/2018 Not on file 09/12/2018 Not on file 09/12/2018 Food Answer Date Recorded Within the past 6 months we worried whether our food would run out before we got money to buy more. Never True 09/12/2018 Within the past 6 months the food we bought just didn't last and we didn't have enough money to get more. Never True 9 Paying for Meds Answer Date Recorded Do you have trouble paying for medicines? No 09/12/2018 Paying Utility Bills Answer Date Record ed Do you have trouble paying your heating or elect ricity bill? No 09/12/2018 Transportation Answer Date Recorded Has the lack of transportati on kept you from medical appointments or from getting medications? No 09/12/2018 Comments No Sex and Gender Information Value [...] encounter Additional Health Concerns Assessment Noted Time PHQ-2 Depression Total Score: 0 10/26/19 19 1:23 PM EDT documented as of this encounter Care Teams Double Surface Operator Relationship Specialty Start Date End Date Alfa Correa MD [address] [place] [id number] [email or web address] PCP - Resident PCP Internal Medicine 07/06/19 12/10/21 Miriam Yousif MD [address] [place] [address] [email or web address] PCP - General Internal Medicine 09/10/19 12/10/21 Jr Higgins MD [address] [place] [address] [email or web address] PCP - General Internal Medicine 12/11/21 Marcelina Irizarry [email or web address] Obstetrics and Gynecology 11/13/18 Alfa Correa MD [address] [place] [address] [email or web address] Attributed Provider 08/10/19 01/09/22 Miriam Yousif MD [address] [place] [address] [email or web address] Assigned Provider 11/10/19 02/13/22 Miriam Yousif MD [address] [place] [id number] [email or web address] Attributed Provider 01/09/22 02/13/22 Jr Higgins MD [address] [place] [address] [email or web address] Assigned Provider 02/13/22 02/12/23 Jr Higgins MD [address] [place] [phone] [email or web address] Attributed Provider 07/10/22 10/14/23 documented as of this encounter Additional Source Comments The information contained in this document represents components of the legal health record. It is not the complete legal health record.[facility]
--- OUTSIDE RECORDS SUMMARY | 2025-03-31 18:13 | XMS_ITS | Encounter Summary ---
Author Organization Formerly [facility] Address [address] [place] [address] Phone Care Team Providers Care Automotive Sales Associate Name Role Phone Doe Kearney MD Unavailable [facility] Blanca Lester MD Primary Care Provider + Cardenas-Marcelina Tracey MD Unavailable B Raphael Kingsley MD, MPH Unavailable [phone] Doe Kearney MD Unavailable [facility] Blanca Lester MD Unavailable [phone] Cardenas-KyungMarcelina morton MD Unavailable B Alfa Correa MD Unavailable Alfa Correa MD Unavailable Miriam Yousif MD Primary Care Provider [phone] Miriam Yousif MD Unavailable [phone] Jr Higgins MD Primary Care Provider [phone] Miriam Yousif MD Unavailable [phone] Jr Higgins MD Unavailable [phone] Jr Higgins MD Unavailable [phone] Reason for Referral * - Closed Specialty Diagnoses / Procedures Referred By Contjelena t Referred To Contact Diagnoses Exertional dyspnea Procedures Stress Test Exercise Joe Jimenez MD Phone: tel: fax: [email or web address] Referral ID Status Reason Start Date Expiration Date Visits Re quested Visits Authorized [id number] Closed 08/29/2018 08/29/2019 1 1 Encounter Details Date Type Department Care Team (Latest Contact Info) Description 08/29/2018 Ancillary Orders [facility] [address] [place] [address] Joe Jimenez MD [address] [place] [address] [id number] [email or web address] Exertional dyspnea Social History Tobacco Use Types Packs/Day Years Used Date Smoking Tobacco: Former Cigarettes 1 28.1 1 991 - 07/28/2018 Smokeless Tobacco: Never Comments:using nicotine patc h Alcohol Use Standard Drinks/Week Comments No 0 (1 standard drink = 0.6 oz pur e alcohol) Comments No Sex and Gender Information Value Date Recorded Sex Assigned at Female 12/16/2019 1:44 AM EDT Legal Sex Female 1:22 PM EDT Gender Identity Female 12/16/2019 1:44 AM EDT Sexual Orientation Straight 12/16/2019 1: 44 AM EDT documented as of this encounter Plan of Treatment Not on file documented as of this encounter Results * Stress Test Exercise (08/29/2018 12:30 PM EDT) Anatomical Region Laterality Modality [facility] 08/29/2018 3:00 PM EDT Narrative 08/29/2018 6:[address] Jimenez, Your patient Rafaela Lerner, a 38 year old female with no known CAD was referred to us for an exercise treadmill test to evaluate for dyspnea. Her cardiac risk factors include tobacco use and obesity. The patient's resting ECG showed normal sinus rhythm. She was on no cardiac medications at the time of testing. Exercise Protocol: Ms. Lerner exercised for 7:16 minutes of a Mello protocol. Oxygen saturation was measured at rest and stress using a pulse-oximeter. The heart rate increased from 72 bpm at rest to a peak heart rate of 162 bpm (90% age predicted maximal heart rate), and the blood pressure increased from 114/60 mm Hg at rest to 168/72 mm Hg at peak exercise (RPP: 03811). Oxygen saturation remained unchanged at 97% during exercise. Exercise was terminated due to fatigue. The symptomatic response to exercise was non-ischemic. The blood pressure response was normal. The ECG response to exercise indicated no significant ST-T changes. During exercise, rare PVC's were observed. Ms. Lerner's functional capacity was 8.9 METS, which is average for her age and gender. Her heart rate recovery was 12 bpm (normal HRR > 18 bpm). Her Jimenez treadmill score was 7.3 which places her at a low prognostic risk (lower than 1% mortality per year). Intensity Heart Blood RPE Speed (Grade Rate Pressure (Scale (MPH) or Urbano) (bmp) (mm Hg) of 10) BASELINE Supine 72 114/60 Standing 80 116/64 STRESS Stage 1 1.7 10 137 152/66 Stage 2 2.5 12 151 168/72 Stage 3 3.4 14 162 RECOVERY 1 Minute 150 162/68 3 Minute 121 112/68 5 Minute 118 100/68 8 Minutes 110 98/66 In summary, the test results were: 1. Functional Capacity: 8.9 METS 2. Peak Heart Rate: 162 bpm (90% age-predicted maximal heart rate). 3. Symptomatic Response: Non-ischemic. 4. Peak Blood Pressure: 168/72 mm Hg. 5. Blood Pressure Response: Normal. 6. ECG Response: Negative test for myocardial ischemia based on absence of ECG changes. 7. Stress-induced Arrhythmia: rare PVC's. Final impression: 1. Negative test for myocardial ischemia based on absence of ECG changes and symptoms. Stress ECG tracings available from [facility]'s [employer]. Thank you for referring this patient to us. Sincerely yours, Joseph Mayo M.D., Attending Physician Procedure Note Joseph Mayfield MD - 08/29/[address] Jimenez, Your patient Rafaela Lerner, a 38 year old female with no known CAD wasreferred to us for an exercise treadmill test to evaluate for dyspnea.Her cardiac risk factors include tobacco use and obesity. The patient's resting ECG showed normal sinus rhythm. She was on nocardiac medications at the time of testing. Exercise Protocol: Ms. Lerner exercised for 7:16 minutes of a Mello protocol. Oxygensaturation was measured at rest and stress using a pulse-oximeter. Theheart rate increased from 72 bpm at rest to a peak heart rate of 162 bpm(90% age predicted maximal heart rate), and the blood pressure increased from 114/60 mm Hg at rest to 168/72 mm Hgat peak exercise (RPP: [id number]). Oxygen saturation remained unchanged at97% during exercise. Exercise was terminated due to fatigue. The symptomatic response toexercise was non-ischemic. The blood pressure response was normal. TheECG response to exercise indicated no significant ST-T changes. Duringexercise, rare PVC's were observed. Ms. Lerner's functional capacity was 8.9 METS, which is average for herage and gender. Her heart rate recovery was 12 bpm (normal HRR > 18 bpm).Her Jimenez treadmill score was 7.3 which places her at a low prognosticrisk (lower than 1% mortality per year). Intensity Heart Blood RPE Speed (Grade Rate Pressure (Scale (MPH) or Urbano) (bmp) (mm Hg) of 10) BASELINE Supine 72 114/60 Standing 80 116/64 STRESS Stage 1 1.7 10 137 152/66 Stage 2 2.5 12 151 168/72 Stage 3 3.4 14 162 RECOVERY 1 Minute 150 162/68 3 Minute 121 112/68 5 Minute 118 100/68 8 Minutes 110 98/66 In summary, the test results were: 1. Functional Capacity: 8.9 METS 2. Peak Heart Rate: 162 bpm (90% age-predicted maximal heart rate). 3. Symptomatic Response: Non-ischemic. 4. Peak Blood Pressure: 168/72 mm Hg. 5. Blood Pressure Response: Normal. 6. ECG Response: Negative test for myocardial ischemia based on absenceof ECG changes. 7. Stress-induced Arrhythmia: rare PVC's. Final impression: 1. Negative test for myocardial ischemia based on absence of ECG changesand symptoms. Stress ECG tracings available from [facility]'s [employer]. Thank you for referring this patient to us. Sincerely yours, Joseph Mayo M.D., Attending Physician us Joe Jimenez MD CV STRESS ORDERABLES Final Result documented in this encounter Visit Diagnoses Diagnosis Exertional dyspnea Other dyspnea and respiratory abnormality Exertional dyspnea Other dyspnea and respiratory abnormality documented in this encounter Additional Health Concerns Assessment Noted Time PHQ-2 Depression Total Score: 2 08/24/19 19 1:11 PM EDT documented as of this encounter Care Teams Automotive Sales Associate Relationship Specialty Start Date End Date Doe Kearney MD [email or web address] PCP - Resident PCP Dermatology 09/12/18 07/05/19 Blanca Lester MD [address] [place] [address] [email or web address] PCP - General Internal Medicine 09/12/18 09/09/19 Alfa Correa MD [address] [place] [address] [email or web address] PCP - Resident PCP Internal Medicine 07/06/19 12/10/21 Miriam Yousif MD [address] [place] [phone] [email or web address] PCP - General Internal Medicine 09/10/19 12/10/21 Jr Higgins MD [address] [place] [phone] [email or web address] PCP - General Internal Medicine 12/11/21 Marcelina Irizarry [email or web address] Responding Clinician Obstetrics and Gynecology 09/25/18 11/12/18 Raphael Kingsley MD, MPH [address] [place] [address] [email or web address] Insurance Assigned Provider 10/07/18 11/05/18 Doe Kearney MD [email or web address] Attributed Provider 10/07/18 08/10/19 Blanca Lester MD [address] [place] [address] [email or web address] Insurance Assigned Provider 11/05/18 11/10/19 Marcelina Irizarry MD [email or web address] Obstetrics and Gynecology 11/13/18 Alfa Correa MD [address] [place] [address] [email or web address] Attributed Provider 08/10/19 01/09/22 Miriam Yousif MD [address] [place] [phone] [email or web address] Insurance Assigned Provider 11/10/19 02/13/22 Miriam Yousif MD [address] [place] [address] [email or web address] Partners Attributed Provider 01/09/22 02/13/22 Jr Higgins MD [address] [place] [address] [email or web address] Insurance Assigned Provider 02/13/22 02/12/23 Jr Higgins MD [address] [place] [address] [email or web address] Partners Attributed Provider 07/10/22 10/14/23 documented as of this encounter Additional Source Comments The information contained in this document represents components of the legal health record. It is not the complete legal health record.[facility]
--- OUTSIDE RECORDS SUMMARY | 2025-03-31 18:13 | XMS_ITS | Clinical Summary ---
Author Organization [facility] Address [address] [place] [phone] Phone Care Team Providers Care Bookseamer Blindstitch Name Role Phone Marcelina Irizarry MD Unavailable B Jr Higgins MD Primary Care Provider [phone] Allergies No known active allergies Medications acetaminophen (TYLENOL) 500 MG tablet Take 2 tablets (1,000 mg total) by mouth 3 (three) times a day as needed for pain (specific location in comments). Do not exceed 3000 mg per day. 90 tablet 0 Active albuterol (VENTOLIN HFA) 90 mcg/actuation inhalerIndication s:Moderate persistent asthma without complication Inhale 2 puffs into the lungs every 6 (six) hours as needed for wheezing. 18 g 3 4 05/09/20 25 Active phentermine (ADIPEX-P) 37.5 mg tabletIndications :Class 3 severe obesity due to excess calories without serious comorbidity with body mass index (BMI) of 40.0 to 44.9 in adult Take 1 tablet (37.5 mg total) by mouth daily before breakfast. 30 tablet 1 5 Active FLUoxetine (PROZAC) 20 MG capsuleIndication s:Current moderate episode of major depressive disorder without prior episode Take 1 capsule (20 mg total) by mouth daily. 90 capsule 3 5 01/12/20 26 Active clindamycin (CLEOCIN T) 1 % lotionIndications :Hydradenitis Apply topically 2 (two) times a day. 60 mL Active Active Problems Problem Noted Date Diagnosed Date Current moderate episode of major depressive disorder without prior episode 01/11/2025 Hydradenitis 01/11/2025 Pure hypercholesterolemia 10/26/2024 Encounter for Essure implantation 08/03/2022 Class 3 severe obesity due t o excess calories without serious comorbidity with body mass index (BMI) of 40.0 to 44.9 in adult 06/17/2022 Smoker 06/17/2022 Lower extremity edema 08/23/2018 Pelvic pain in female Resolved Problems Problem Noted Date Diagnosed Date Resolved Date Intermittent asthma without complication 10/26/2024 01/11/2025 Asthma 08/23/2018 10/26/2024 Encounters Date Type Department Care Team Description 03/04/2025 MGP RISK SCORES SYSTEM GENERATED External System Generated Encounter [address] [place] [address] Unknown, Unknown, MD 01/11/2025 9:15 AM EDT Office Visit [facility] [address] [place] [phone] Jr Higgins MD Class 3 severe obesity due to excess calories without serious comorbidity with body mass index (BMI) of 40.0 to 44.9 in adult (Primary Dx); Gallstones; Current moderate episode of major depressive disorder without prior episode; Hydradenitis 01/11/2025 Telephone [facility] [address] [place] [phone] Jr Higgins MD Collaborative Care from Last 3 Months Immunizations Immunization Administration Dates Next Due COVID-19 (Pre-03/28) Pfizer Vaccine, Bivalent 12 + 06/17/2022 Hepatitis B Adult 04/20/2013,11/08/2012 INFLUENZA, SPLIT VIRUS, TRIVALENT PF 05/09/2024 INFLUENZA, SPLIT VIRUS, TRIVALENT W/ PRESERVATIV E IM 2010 Influenza Quadrivalent MDCK Preservative Free IM 03/21/2019 Influenza Quadrivalent Preservative Free IM 06/06,04/26/2020 Pneumococcal conjugate PCV20 12/28/2021 Pneumococcal polysaccharide PPSV23 03/26/2013 Td, unspecified formulation 2010 Tdap 06/17/2022 Family History Medical History Relation Comments Heart disease Father Hypertension Mother Relation Status Comments Father Mother Social History Tobacco Use Types Packs/Day Years Used Date Smoking Tobacco: Every Day Cigarettes 0.3 34.8 Started: 06/06/1990 Smokeless Tobacco: Never Tobacco Cessation:Ready to Q uit: Not Asked; Counseling Given: Not Answered Alcohol Use Standard Drinks/Week Comments No 0 [...] high school, GED, job training, learning the Togolese language, technical skills, or developing parenting skills)? [...] Orientation Straight 12/16/2019 1: 44 AM EDT Last Filed Vital Signs Vital Sign Reading Time Taken Comments Blood Pressure 135/66 01/11/2025 8:51 AM EDT Pulse 71 01/11/2025 8:51 AM EDT Temperature 36.4 C (97.6 F) 01/11/2025 8:51 AM EDT Respiratory Rate 17 09/25/2018 1:58 PM EDT Oxygen Saturation 99% 01/11/2025 8:51 AM EDT Inhaled Oxygen Concentration - - Weight 101.2 kg (223 lb 3.2 oz) 01/11/2025 8:51 AM EDT Height 154.9 cm (5' 1 ) 05/09/2024 10:3 5 AM EST Body Mass Index 42.17 05/09/2024 10:35 AM EST Plan of Treatment Health Maintenance Due Date Last Done Comments COLOGUARD 2023 COLONOSCOPY 2023 COLORECTAL CANCER SCREENING 2023 FIT TEST 2023 FOBT 2023 SIGMOIDOSCOPY 2023 VIRTUAL COLONOSCOPY 2023 INFLUENZA VACCINE (#1) 2025 , 06/17/2022, 04/26/2020, Additional history exists COVID-19 VACCINE ( season) 2025 06/17/2022, 03/09/2021, 02/16/2021 REPEAT PHQ 02/11/2025 01/11/2025, 01/11/2025 DEPRESSION SCREENING 01/11/2026 01/11/2025, 01/12/20 25 SMOKING Hx and SMOKELESS TOBACCO SCREENING 01/11/2026 01/11/2025 MAMMOGRAM 10/04/2026 10/04/2024 PAP SMEAR 05/09/2027 05/09/2024, 1209/2023, 09/15/2017 SCREENING FOR DIABETES 10/27/2027 10/26/2024, 2023 LIPID PANEL 10/26/2029 10/26/2024, 120 09/2023, 06/17/2022, Additional history exists Adult Td,Tdap Booster 06/17/2032 06/17/2022, 010 HEPATITIS C SCREENING Completed 09/15/2017 HIV ONE-TIME SCREENING (18-65 YEARS) Completed 01/18/2020 PNEUMOCOCCAL VACCINES (0-49 years) Completed 12/28/2021, 03/26/2013 HEPATITIS A VACCINES Aged Out No long er eligible based on patient's age to complete this topic HIB VACCINES Aged Out No longer eligi ble based on patient's age to complete this topic MENINGOCOCCAL VACCINES (ACWY) Aged Out No longer eligible based on patient's age to complete this topic MENINGOCOCCAL VACCINES (B) Aged Out N o longer eligible based on patient's age to complete this topic Medical Devices Not on file Procedures Procedure Name Priority Date/Time Associated Diagnosis Comments LIPID PANEL Routine 10/26/2024 11:36 AM EDT Pure hypercholesterolemia BI MAMMOGRAM SCREENING WITH TOMOSYNTHESIS WITH CAD (BILATERAL) Routine 10/04/2024 2:44 PM EDT Healthcare maintenance PAP TEST Routine 05/09/2024 12:00 AM EST from Last 3 Months or Most Recently Relevant to Health Maintenance Results * (ABNORMAL) Lipid panel (10/26/2024 11:36 AM EDT) CHOLESTEROL 243(H) <200 mg/dL [facility] TRIGLYCERIDES 184(H) 35 - 150 mg/dL [facility] HDL 39(L) 40 - 80 mg/dL [facility] CALCULATED LDL 167(H) 50 - 129 mg/dL [facility] VLDL 37(H) <31 mg/dL [facility] CARDIAC RISK RATIO 6.2(H) 0.0 - 4.0 [facility] Blood 10/26/2024 11:3 6 AM EDT 10/26/2024 12:06 PM EDT us Jr Higgins MD LAB BLOOD ORDERABLES Final Res ult Performing Organization Address City/State/[facility] Co de Phone Number [facility] [address] [place] [phone] * (ABNORMAL) BI MAMMOGRAM SCREENING WITH TOMOSYNTHESIS WITH CAD (BILATERAL) (10/04/2024 2:44 PM EDT) Anatomical Region Laterality Modality Breast Left, Breast Right, Breast Bilateral Bila teral Mammography 10/19/2024 9:24 AM EDT Impressions 10/21/2024 9:24 PM EDT 1. Questionable masses in the left breast for which additional imaging is recommended with diagnostic mammography and possible ultrasound. Prior imaging was performed including bilateral screening mammogram with tomosynthesis 03/02/2018 at [facility]. Recommend updating this prior imaging for assessment and comparison which may demonstrate benignity, at which point an addendum with updated assessment and recommendations will be issued. 2. No mammographic evidence of malignancy in the right breast. BI-RADS 0-P INCOMPLETE Need prior mammograms for comparison The patient will be notified of the results and recommendations. The mammography department will contact the patient to arrange for the additional imaging. Narrative 10/21/2024 9:24 PM EDT BI MAMMOGRAM SCREENING WITH TOMOSYNTHESIS WITH CAD (BILATERAL) Additional patient information: Screening. COMPARISON: Prior imaging could not be obtained for direct comparison. Breast composition: There are scattered areas of fibroglandular density. FINDINGS: Right No abnormal masses, suspicious calcifications, or other significant findings are identified mammographically in the right breast. A scar marker projects over the outer central breast. Left Questionable masses are present in the lower central left breast at posterior depth. us Jr Higgins MD IMG MG EXAMS Final Result * Pap Test (05/09/2024 12:00 AM EST) Specimen Adequacy Satisfactory for evaluation. [facility] Quality Indicators Endocervical/trans formation zone component absent/insufficien t. [facility] Results\Inter pretation NEGATIVE FOR INTRAEPITHELIAL LESION OR MALIGNANCY. [facility] Automated Review This specimen was prescreened using the ThinPrep Imaging System. [facility] Total Slides TotSlide1 [facility] Procedure Comments ProcScreening or High Risk ThinPrep with Auto Pre-Screen - [facility] Report Accession No: [id number] Date: 1980 Sex: F [facility] Department of Pathology [address] [place] [address] CLIA License No.: [id number] Land Examiner: Jose Shore MD, PhD Physician: JR HIGGINS MD Procedure Date: 05/09/2024 Ultrasonic Welding Machine Operator: JOHN Bains ([facility]) THINPREP PAP TEST, CERVICAL FINAL CYTOLOGIC INTERPRETATION SPECIMEN ADEQUACY: Satisfactory for evaluation. QUALITY INDICATORS: Endocervical/trans formation zone component absent/insufficien t. INTERPRETATION: NEGATIVE FOR INTRAEPITHELIAL LESION OR MALIGNANCY. AUTOMATED REVIEW: This specimen was prescreened using the ThinPrep Imaging System. CLINICAL DATA LMP: 05/05/24 TOTAL SLIDES 1 PROCEDURES Screening or High Risk ThinPrep with Auto Pre-Screen - [facility] 1 Final Diagnosis by Ashley LOPEZ ([facility]), Electronically signed on Thursday May 23, 2024 at 02:17:04PM [facility] Conversion Type (Conversion Source) 05/09/2024 05/15/2024 Jr Higgins MD CYTOLOGY ORDERABLES Edited Res ult - Final [facility] from Last 3 Months or Most Recently Relevant to Health Maintenance Insurance P ACO P [place] [address] [place] [address] [place] [address]P [facility] [place] [id number] Care Teams Bookseamer Blindstitch Relationship Specialty Start Date End Date Jr Higgins MD [email or web address] PCP - General Internal Medicine 12/11/21 Marcelina Irizarry [email or web address] Obstetrics and Gynecology 11/13/18 Additional Source Comments The information contained in this document represents components of the legal health record. It is not the complete legal health record.[facility]
--- OUTSIDE RECORDS SUMMARY | 2025-03-31 18:13 | XMS_ITS | Encounter Summary ---
Author Organization [facility] Address [address] [place] [phone] Phone Care Team Providers Care Hose Mender Name Role Phone Marcelina Irizarry MD Unavailable B [email or web address] Jr Higgins MD Primary Care Provider [phone] Encounter Details Date Type Department Care Team (Late st Contact Info) Description 10/22/2024 Ancillary Orders [facility] [address] [place] [address] Jr Higgins MD [address] [place] [phone] [email or web address] Abnormal mammogram (Primary Dx) Social History Tobacco Use Types Packs/Day Years [...] high school, GED, job training, learning the Spanish language, technical skills, or developing parenting skills)? [...] documented as of this encounter Visit Diagnoses Diagnosis Abnormal mammogram- Primary Abnormal mammogram, unspecified documented in this encounter Additional Health Concerns Assessment Noted Time PHQ-9 Depression Total Score: 17 024 7:43 PM EST PHQ-2 Depression Total Score: 6 05/02/20 24 10:29 PM EST documented as of this encounter Care Teams Hose Mender Relationship Specialty Start Date End Date Jr Higgins MD [email or web address] PCP - General Internal Medicine 12/11/21 Marcelina Irizarry [email or web address] Obstetrics and Gynecology 11/13/18 documented as of this encounter Additional Source Comments The information contained in this document represents components of the legal health record. It is not the complete legal health record.[facility]
--- OUTSIDE RECORDS SUMMARY | 2025-03-31 18:13 | XMS_ITS | Encounter Summary ---
Author Organization [facility] Address [address] [place] [address] Phone Care Team Providers Care Pulmonary Physical Therapist Name Role Phone Doe [place] MD Unavailable [facility] Blanca Lester MD Primary Care Provider + Cardenas-Marcelina Tracey MD Unavailable B Raphael Kingsley MD, MPH Unavailable [phone] Doe [place] MD Unavailable [facility] Blanca Lester MD Unavailable [phone] Cardenas-Marcelina Tracey MD Unavailable B Alfa Correa MD Unavailable Alfa Correa MD Unavailable Miriam Yousif MD Primary Care Provider [phone] Miriam Yousif MD Unavailable [phone] Jr Higgins MD Primary Care Provider [phone] Miriam Yousif MD Unavailable [phone] Jr Higgins MD Unavailable [phone] Jr Higgins MD Unavailable [phone] Encounter Details Date Type Department Care Team (Late st Contact Info) Description 08/18/2018 Procedure Pass BWF Periop 1st floor [address] [place] [address] Social History Tobacco Use Types Packs/Day Years [...] Noted Time PHQ-2 Depression Total Score: 2 07/18/19 19 12:59 PM EST documented as of this encounter Care Teams Pulmonary Physical Therapist Relationship Specialty Start Date End Date Doe [place] MD [email or web address] PCP - Resident PCP Dermatology 09/12/18 07/05/19 Blanca Lester MD [address] [place] [address] [email or web address] PCP - General Internal Medicine 09/12/18 09/09/19 Alfa Correa MD [address] [place] [address] [email or web address] PCP - Resident PCP Internal Medicine 07/06/19 12/10/21 Miriam Yousif MD [address] [place] [address] [email or web address] PCP - General Internal Medicine 09/10/19 12/10/21 Jr Higgins MD [address] [place] [address] [email or web address] PCP - General Internal Medicine 12/11/21 Marcelina Irizarry MD [email or web address] Responding Clinician Obstetrics and Gynecology 09/25/18 11/12/18 Rapheal [place] MD, MPH [address] [place] [address] [email or web address] Insurance Assigned Provider 10/07/18 11/05/18 Doe [place] MD [email or web address] Attributed Provider 10/07/18 08/10/19 Blanca Lester MD [address] [place] [address] [email or web address] Insurance Assigned Provider 11/05/18 11/10/19 Marcelina Irizarry MD [email or web address] Obstetrics and Gynecology 11/13/18 Alfa Correa MD [address] [place] [address] [email or web address] Attributed Provider 08/10/19 01/09/22 Miriam Yousif MD [address] [place] [address] [email or web address] Insurance Assigned Provider 11/10/19 02/13/22 Miriam Yousif MD [address] [place] [address] [email or web address] Partners Attributed Provider 01/09/22 02/13/22 Jr Higgins MD [address] [place] [address] [email or web address] Insurance Assigned Provider 02/13/22 02/12/23 Jr Higgins MD [address] [place] [address] [email or web address] [employer] Attributed Provider 07/10/22 10/14/23 documented as of this encounter Additional Source Comments The information contained in this document represents components of the legal health record. It is not the complete legal health record.[facility]
--- OUTSIDE RECORDS SUMMARY | 2025-03-31 18:13 | XMS_ITS | Encounter Summary ---
Author Organization [facility] Address [address] [place] [address] Phone Care Team Providers Care Custodial Laborer Name Role Phone Doe [place] MD Unavailable [facility] Blanca Lester MD Primary Care Provider + Cardenas-Marcelina Tracey MD Unavailable B Raphael Kings[place] MD, MPH Unavailable [phone] Doe [place] MD Unavailable [facility] Blanca Lester MD Unavailable [phone] Cardenas-Marcelina Tracey MD Unavailable B Alfa Correa MD Unavailable Alfa Correa MD Unavailable Miriam Yousif MD Primary Care Provider [phone] Miriam Yousif MD Unavailable [phone] Jr Higgins MD Primary Care Provider [phone] Miriam Yousif MD Unavailable [phone] Jr Higgins MD Unavailable [phone] Jr Higgins MD Unavailable [phone] Encounter Details Date Type Department Care Team (Late st Contact Info) Description 09/25/2018 Procedure Pass BWF Periop 1st floor [address] [place] [address] Social History Tobacco Use Types Packs/Day Years [...] high school, GED, job training, learning the [place] language, technical skills, or developing parenting skills)? [...] documented as of this encounter Care Teams Custodial Laborer Relationship Specialty Start Date End Date Doe [place] MD [email or web address] PCP - Resident PCP Dermatology 09/12/18 07/05/19 Blanca Lester MD [address] [place] [address] [email or web address] PCP - General Internal Medicine 09/12/18 09/09/19 Alfa Correa MD [address] [place] [address] [email or web address] PCP - Resident PCP Internal Medicine 07/06/19 12/10/21 Miriam Yousif MD [address] [place] [address] [email or web address] PCP - General Internal Medicine 09/10/19 12/10/21 Jr Higgins MD [address] [place] [address] [email or web address] PCP - General Internal Medicine 12/11/21 Marcelina Irizarry MD [email or web address] Responding Clinician Obstetrics and Gynecology 09/25/18 11/12/18 Raphael [place] MD, MPH [address] [place] [address] Insurance Assigned Provider 10/07/18 11/05/18 Doe [place] MD [email or web address] Attributed Provider 10/07/18 08/10/19 Blanca Lester MD [address] [place] [address] [email or web address] Insurance Assigned Provider 11/05/18 11/10/19 Marcelina Irizarry MD [email or web address] Obstetrics and Gynecology 11/13/18 Alfa Correa MD [address] [place] [address] [email or web address] Attributed Provider 08/10/19 01/09/22 Miriam Yousif MD [address] [place] [address] [email or web address] Assigned Provider 11/10/19 02/13/22 Miriam Yousif MD [address] [place] [address] [email or web address] Attributed Provider 01/09/22 02/13/22 Jr Higgins MD [address] [place] [address] [email or web address] Insurance Assigned Provider 02/13/22 02/12/23 Jr Higgins MD [address] [place] [address] [email or web address] Attributed Provider 07/10/22 10/14/23 documented as of this encounter Additional Source Comments The information contained in this document represents components of the legal health record. It is not the complete legal health record.[facility]
--- OUTSIDE RECORDS SUMMARY | 2025-03-31 18:13 | XMS_ITS | Encounter Summary ---
Author Organization [facility] Address [address] [place] [address] Phone Care Team Providers Care Claims Processor Name Role Phone Marcelina Irizarry MD Unavailable B Alfa Correa MD Unavailable Alfa Correa MD Unavailable Miriam Yousif MD Primary Care Provider [phone] Miriam Yosuif MD Unavailable [phone] Jr Higgins MD Primary Care Provider [phone] Miriam Yousif MD Unavailable [phone] Jr Higgins MD Unavailable [phone] Jr Higgins MD Unavailable [phone] Reason for Visit * Reason Onset Date Comments Urinary Tract Infection 11/28/2019 Encounter Details Date Type Department Care Team (Late st Contact Info) Description 11/28/2019 Telephone [facility] [address] [facility] [place] [address] Alfa Correa MD [address] [place] [address] [email or web address] Urinary Tract Infection Social History Tobacco Use Types Packs/Day Years Used Date Smoking Tobacco: Former Cigarettes 0.3 28.1 1 991 - 07/28/2018 Smokeless Tobacco: Never Comments:using nicotine pat h Alcohol Use Standard Drinks/Week Comments No [...] high school, GED, job training, learning the Portuguese language, technical skills, or developing parenting skills)? [...] AM EDT documented as of this encounter Progress Notes * Brandy Herndon RN - 11/28/2019 1:08 PM EDT Called and spoke with patient who reports she was seen at [facility] ED 2 days ago She was having heavy vaginal bleeding, this is what brought her to the ED. Had a UA while there which showed infection-- prescribed Macrobid which she has not started Had US, per her report everything negative Bleeding has resolved. She is calling today because she is still having frequency I advised her to draft roller picker and take Macrobid and I will request the records and f/u with her documented in this encounter Plan of Treatment Not on file documented as of this encounter Visit Diagnoses Not on filedocumented in this encounter Additional Health Concerns Assessment Noted Time PHQ-2 Depression Total Score: 0 10/26/19 19 1:23 PM EDT documented as of this encounter Care Teams Claims Processor Relationship Specialty Start Date End Date Alfa Correa MD [address] [place] [address] [email or web address] PCP - Resident PCP Internal Medicine 07/06/19 12/10/21 Miriam Yousif MD [address] [place] [address] [email or web address] PCP - General Internal Medicine 09/10/19 12/10/21 Jr Higgins MD [address] [place] [address] [email or web address] PCP - General Internal Medicine 12/11/21 Marcelina Irizarry MD [email or web address] Obstetrics and Gynecology 11/13/18 Alfa Correa MD [address] [place] [address] [email or web address] Partners Attributed Provider 08/10/19 01/09/22 Miriam Yousif MD [address] [place] [address] [email or web address] Insurance Assigned Provider 11/10/19 02/13/22 Miriam Yousif MD [address] [place] [address] [email or web address] Attributed Provider 01/09/22 02/13/22 Jr Higgins MD [address] [place] [address] [email or web address] Insurance Assigned Provider 02/13/22 02/12/23 Jr Higgins MD [address] [place] [address] [email or web address] Attributed Provider 07/10/22 10/14/23 documented as of this encounter Additional Source Comments The information contained in this document represents components of the legal health record. It is not the complete legal health record.[facility]
--- OUTSIDE RECORDS SUMMARY | 2025-03-31 18:13 | XMS_ITS | Clinical Summary ---
Author Organization [facility] Address [address] [place] [address] Phone Care Team Providers Care Appeals Officer Name Role Phone Physician, Pcp Unknown Primary Care Provider Krystal vailable Allergies No known active allergies Medical History Medical History Date Comments Asthma Social History Tobacco Use Types Packs/Day Years Used Date Smoking Tobacco: Every Day Cigarettes 0.3 33.8 Started: 1993 Smokeless Tobacco: Never Tobacco Cessation:Ready [...] Health Maintenance Due Date Last Done Comments Colorectal Cancer Screening: Colonoscopy 1980 Hepatitis B Vaccines (3 of 3 - 19+ 3-dose series) 06/15/2013 04/20/2013, 11/08/2012 Breast Cancer Screening 03/02/2020 03/02/2018 HIV Screening 05/23/2024 Hepatitis C Screening 05/23/2024 Social Influencers of Health Screening 05/23/2024 Depression Screening 06/06/2024 COVID-19 Vaccine ( season) 2025 06/17/2022, 03/09/2021, 02/16/2021 Influenza Vaccine (#1) 2025 , 06/17/2022, 04/26/2020, Additional history exists Cervical Cancer Screening: Pap Smear 05/09/2027 05/09/2024, 09/15/2017, 09/15/2017 Cholesterol Screening (Lipid Panel) 05/09/2029 05/09/2024 DTaP,Tdap,and Td Vaccines (3 - Td or Tdap) 06/17/2032 06/17/2022, 2010 RSV Immunization Adult Patients (1 - 1-dose 75+ series) 2053 Pneumococcal Vaccine: Pediatrics (0 to 5 Years) [...] AM EDT Narrative 03/02/2018 4:31 PM EDT [facility] Diagnostic Imaging Department [address] [place] [address] Patient: RAFAELA BROWNING Daron ParsonsB./Age/Sex: 1980 - 38 - F Unit#: [id number] Location/Status: [facility] CLI Mnemonic/Ordering Site: [facility] Ordering Physician: SAHARA KULKARNI CNM Chanelle Screening [...] 0: Incomplete. Needs further imaging evaluation, [id number], 93049 Patient information entered into a reminder system with a target date for the next mammogram. [id number] Dictating Physician: CHENG KITCHEN MD Electronically Signed by: CHENG KITCHEN MD Dic Date/Time: 03/02/18 1617 Sign date/Time: 03/02/18 1631 Procedure Note Cheng Kitchen MD - 05/25/2022 [facility] Diagnostic Imaging Department [address] [place] [address] Patient: RAFAELA BROWNING /Age/Sex: 1980 - 38 - F Unit#: [id number] Location/Status: [facility] CLI Mnemonic/Ordering Site: [facility] Ordering Physician: SAHARA KULKARNI CNM Chanelle Screening [...] 0: Incomplete. Needs further imaging evaluation, [id number] 60938, 19882 Patient information entered into a reminder system with a target date forthe next mammogram. [id number] Dictating Physician: CHENG KITCHEN MD Electronically Signed by: CHENG KITCHEN MD Dic Date/Time: 03/02/18 1617 Sign date/Time: 03/02/18 1631 Sahara Kulkarni CNM IMG BI PROCEDURES Final Resul t * Pap smear (09/15/2017) 09/15/2017 Narrative HISTORICAL TESTING LAB RESULTING AGENCY - 09/29/2017 2:58 PM EDT [id number] THINPREP PAP, IMAGED AND CELL BLOCK: NEGATIVE [...] Relevant to Health Maintenance Insurance MEDICAID - [place] Care Teams Appeals Officer Relationship Specialty Start Date End Date Physician, Pcp Unknown PCP - General 05/23/24
--- OUTSIDE RECORDS SUMMARY | 2025-03-31 18:13 | XMS_ITS | Encounter Summary ---
Author Organization [facility] Address [address] [place] [address] Phone Care Team Providers Care Scrap Metal Processing Worker Name Role Phone Marcelina Irizarry MD Unavailable B Alfa Correa MD Unavailable Alfa Correa MD Unavailable Miriam Yousif MD Primary Care Provider [phone] Miriam Yousif MD Unavailable [phone] Jr Higgins MD Primary Care Provider [phone] Miriam Yousif MD Unavailable [phone] Jr Higgins MD Unavailable [phone] Jr Higgins MD Unavailable [phone] Encounter Details Date Type Department Care Team (Late st Contact Info) Description 03/18/2020 Telephone [facility] OBGYN Gynecology Resident [address] [place] [address] [email or web address] Social History Tobacco Use Types Packs/Day Years [...] high school, GED, job training, learning the Serbian language, technical skills, or developing parenting skills)? [...] Noted Time PHQ-2 Depression Total Score: 0 01/18/20 9:54 AM EDT documented as of this encounter Care Teams Scrap Metal Processing Worker Relationship Specialty Start Date End Date Alfa Correa MD [address] [place] [address] [email or web address] PCP - Resident PCP Internal Medicine 07/06/19 12/10/21 Miriam Yousif MD [address] [place] [address] [email or web address] PCP - General Internal Medicine 09/10/19 12/10/21 Jr Higgins MD [address] [place] [address] [email or web address] PCP - General Internal Medicine 12/11/21 Marcelina Irizarry MD [email or web address] Obstetrics and Gynecology 11/13/18 Alfa Correa MD [address] [place] [address] [email or web address] Partners Attributed Provider 08/10/19 01/09/22 Miriam Yousif MD [address] [place] [address] [email or web address] Insurance Assigned Provider 11/10/19 02/13/22 Miriam Yousif MD [address] [place] [address] [email or web address] Partners Attributed Provider 01/09/22 02/13/22 Jr Higgins MD [address] [place] [address] [email or web address] Insurance Assigned Provider 02/13/22 02/12/23 Jr Higgins MD [address] [place] [address] [email or web address] Attributed Provider 07/10/22 10/14/23 documented as of this encounter Additional Source Comments The information contained in this document represents components of the legal health record. It is not the complete legal health record.[facility]
--- OUTSIDE RECORDS SUMMARY | 2025-03-31 18:13 | XMS_ITS | Encounter Summary ---
Author Organization [facility] Address [address] [place] [address] Phone Care Team Providers Care Finishing Supervisor Plastic Sheets Name Role Phone Marcelina Irizarry MD Unavailable B [email or web address] Alfa Corera MD Unavailable Alfa Correa MD Unavailable Miriam Yousif MD Primary Care Provider [phone] Miriam Yousif MD Unavailable [phone] Jr Higgins MD Primary Care Provider [phone] Miriam Yousif MD Unavailable [phone] Jr Higgins MD Unavailable [phone] Jr Higgins MD Unavailable [phone] Encounter Details Date Type Department Care Team (Late st Contact Info) Description 08/22/2020 Telephone [facility] OBGYN Gynecology Resident [address] [place] [address] Tari Haas MS [address] [place] [address] [email or web address] Social History Tobacco Use Types Packs/Day Years [...] high school, GED, job training, learning the Macanese language, technical skills, or developing parenting skills)? [...] Time PHQ-2 Depression Total Score: 0 01/18/20 20 9:54 AM EDT documented as of this encounter Care Teams Finishing Supervisor Plastic Sheets Relationship Specialty Start Date End Date Alfa Correa MD [address] [place] [address] [email or web address] PCP - Resident PCP Internal Medicine 07/06/19 12/10/21 Miriam Yousif MD [address] [place] [address] [email or web address] PCP - General Internal Medicine 09/10/19 12/10/21 Jr Higgins MD [address] [place] [address] [email or web address] PCP - General Internal Medicine 12/11/21 Marcelina Irizarry MD [email or web address] Obstetrics and Gynecology 11/13/18 Alfa Correa MD [address] [place] [address] [email or web address] Attributed Provider 08/10/19 01/09/22 Miriam Yousif MD [address] [place] [address] [email or web address] Insurance Assigned Provider 11/10/19 02/13/22 Miriam Yousif MD [address] [place] [address] [email or web address] [employer] Attributed Provider 01/09/22 02/13/22 Jr Higgins MD [address] [place] [address] [email or web address] Insurance Assigned Provider 02/13/22 02/12/23 Jr Higgins MD [address] [place] [address] [email or web address] [employer] Attributed Provider 07/10/22 10/14/23 documented as of this encounter Additional Source Comments The information contained in this document represents components of the legal health record. It is not the complete legal health record.[facility]
--- OUTSIDE RECORDS SUMMARY | 2025-03-31 18:13 | XMS_ITS | Clinical Summary ---
Author Organization [facility] Address [address] [place] [address] Care Team Providers Care Poll Clerk Name Role Phone Pcp, No Primary Care [...] (Ages 21-65) 1999 Mammogram 2018 Colonoscopy 2023 Influenza Vaccine 01/04/2025 COVID-19 Vaccine (1 - 2023-2 5 season) 2025 Pneumococcal Vaccine: Pediat meghan (0-5 Years) and At-Risk Patients (6 to 49 Years) Aged Out No longer eligible b ased on patient's age to complete this topic Insurance MEDICAID OUT OF STATE [facility] on file Care Teams Poll Clerk Relationship Specialty Start Date End Date Pcp, No PCP - General General Medicine 12/02/20
--- OUTSIDE RECORDS SUMMARY | 2025-03-31 18:13 | XMS_ITS | Clinical Summary ---
Author Organization [facility] Address [address] [place] [address] Care Team Providers Care Charm Filter Operator Helper Name Role Phone Jacob Correa MD Primary Care Provider [phone] Source Comments PLEASE NOTE, if this patient is a minor, it may be UNLAWFUL to discuss sensitive information that is contained in these records (such as FAMILY PLANNING, MENTAL HEALTH or SUBSTANCE ABUSE) with the minor patient's parent or other person without the patient's specific authorization.[facility] Allergies No known active allergies Medications No known medications Active Problems Problem Noted Date Diagnosed Date Stress incontinence 10/04/2013 Overview (10/04/2013): Pt is referred to a Urologist Family History Medical History Relation Name Comments Diabetes Maternal Uncle Hypertension Mother Relation Name Status Comments Brother Alive Father Alive Maternal Uncle Mother Alive Sister Alive Social History Tobacco Use Types Packs/Day Years Used Date Smoking Tobacco: Every Day Tobacco Cessation:Ready to Q uit: Yes; Counseling Given: Yes Alcohol Use Standard Drinks/Week Comments No 0 (1 standard drink = 0.6 oz pur e alcohol) Comments No Sex and Gender Information Value Date Recorded Sex Assigned at Not on file Legal Sex Female 1:29 PM PDT Gender Identity Not on file Sexual Orientation Not on file Last Filed Vital Signs Vital Sign Reading Time Taken Comments Blood Pressure 110/70 10/04/2013 10:31 AM EDT Pulse 64 10/04/2013 10:31 AM EDT Temperature 37.7 C (99.8 F) 10/04/2013 10:31 AM EDT Respiratory Rate 12 10/04/2013 10:31 AM EDT Oxygen Saturation - - Inhaled Oxygen Concentration - - Weight 87.1 kg (192 lb) 10/04/2013 10:31 AM EDT Height 146.7 cm (4' 9.75 ) 10/04/2013 10:31 AM E DT Body Mass Index 40.48 10/04/2013 10:31 AM EDT Plan of Treatment Not on file Insurance [facility] Member Subscriber Plan / Payer (Ef fective 2013-Present) Name:Rafaela Lerner Relation to Subscriber:Self Name:Rafaela Lerner Payer ID:[id number] Group ID:Not on file Type:Medicaid Address: [address] [place] [address] [place] Care Teams Charm Filter Operator Helper Relationship Specialty Start Date End Date Jacob Correa MD [address] [place] [phone] PCP - General Internal Medicine 10/04/13
--- OUTSIDE RECORDS SUMMARY | 2025-03-31 18:13 | XMS_ITS | Encounter Summary ---
Author Organization [facility] Address [address] [place] [phone] Phone Care Team Providers Care Aqua Ammonia Operator Name Role Phone Marcelina Irizarry MD Unavailable [email or web address] Alfa Correa MD Unavailable Alfa Correa MD Unavailable Miriam Yousif MD Primary Care Provider [phone] Miriam Yousif MD Unavailable [phone] Jr Higgins MD Primary Care Provider [phone] Miriam Yousif MD Unavailable [phone] Jr Higgins MD Unavailable [phone] Jr Higgins MD Unavailable [phone] Encounter Details Date Type Department Care Team (Late st Contact Info) Description 03/24/2020 Telephone [facility] OBGYN Gynecology Resident [address] [place] [phone] Unknown, Unknown, Social History Tobacco Use Types Packs/Day Years [...] high school, GED, job training, learning the Tunisian language, technical skills, or developing parenting skills)? [...] documented as of this encounter Care Teams Aqua Ammonia Operator Relationship Specialty Start Date End Date Alfa Correa MD [address] [place] [phone] [email or web address] PCP - Resident PCP Internal Medicine 07/06/19 12/10/21 Miriam Yousif MD [address] [place] [phone] [email or web address] PCP - General Internal Medicine 09/10/19 12/10/21 Jr Higgins MD [address] [place] [phone] [email or web address] PCP - General Internal Medicine 12/11/21 Marcelina Irizarry MD [email or web address] Obstetrics and Gynecology 11/13/18 Alfa Crorea MD [address] [place] [phone] [email or web address] Attributed Provider 08/10/19 01/09/22 Miriam Yousif MD [address] [place] [phone] [email or web address] Insurance Assigned Provider 11/10/19 02/13/22 Miriam Yousif MD [address] [place] [phone] [email or web address] Attributed Provider 01/09/22 02/13/22 Jr Higgins MD [address] [place] [address] [email or web address] Insurance Assigned Provider 02/13/22 02/12/23 Jr Higgins MD [address] [place] [address] [email or web address] Attributed Provider 07/10/22 10/14/23 documented as of this encounter Additional Source Comments The information contained in this document represents components of the legal health record. It is not the complete legal health record.[facility]
--- OUTSIDE RECORDS SUMMARY | 2025-03-31 18:13 | XMS_ITS | Encounter Summary ---
Author Organization [facility] Address [address] [place] [phone] Phone Care Team Providers Care Mechanical Pencils Assembler Name Role Phone Marcelina Irizarry MD Unavailable B Alfa Correa MD Unavailable Alfa Correa MD Unavailable Miriam Yousif MD Primary Care Provider [phone] Miriam Yousif MD Unavailable [phone] Jr Higgins MD Primary Care Provider [phone] Miriam Yousif MD Unavailable [phone] Jr Higgins MD Unavailable [phone] Jr Higgins MD Unavailable [phone] Encounter Details Date Type Department Care Team (Late st Contact Info) Description 03/31/2020 Telephone [facility] OBGYN Gynecology Resident [address] [place] [phone] [email or web address] Social History Tobacco Use Types Packs/Day Years [...] high school, GED, job training, learning the Nepalese language, technical skills, or developing parenting skills)? [...] documented as of this encounter Care Teams Mechanical Pencils Assembler Relationship Specialty Start Date End Date Alfa Correa MD [address] [place] [phone] [email or web address] PCP - Resident PCP Internal Medicine 07/06/19 12/10/21 Miriam Yousif MD [address] [place] [phone] [email or web address] PCP - General Internal Medicine 09/10/19 12/10/21 Jr Higgins MD [address] [place] [address] [email or web address] PCP - General Internal Medicine 12/11/21 Marcelina Irizarry MD [email or web address] Obstetrics and Gynecology 11/13/18 Alfa Correa MD [address] [place] [address] [email or web address] Attributed Provider 08/10/19 01/09/22 Miriam Yousif MD [address] [place] [phone] [email or web address] Insurance Assigned Provider 11/10/19 02/13/22 Miriam Yousif MD [address] [place] [address] [email or web address] Attributed Provider 01/09/22 02/13/22 Jr Higgins MD [address] [place] [phone] [email or web address] Insurance Assigned Provider 02/13/22 02/12/23 Jr Higgins MD [address] [place] [phone] [email or web address] Attributed Provider 07/10/22 10/14/23 documented as of this encounter Additional Source Comments The information contained in this document represents components of the legal health record. It is not the complete legal health record.[facility]
--- OUTSIDE RECORDS SUMMARY | 2025-03-31 18:13 | XMS_ITS | Encounter Summary ---
Author Organization [facility] Address [address] [place] [address] Phone Care Team Providers Care Timber Trimmer Name Role Phone Marcelina Irizarry MD Unavailable B Jr Higgins MD Primary Care Provider [phone] Encounter Details Date Type Department Care Team (Late st Contact Info) Description 05/09/2024 Procedure Pass [facility] [address] [place] [address] Social History Tobacco Use Types Packs/Day Years [...] high school, GED, job training, learning the [place]uneian language, technical skills, or developing parenting skills)? [...] documented as of this encounter Care Teams Timber Trimmer Relationship Specialty Start Date End Date Jr Higgins MD [email or web address] PCP - General Internal Medicine 12/11/21 Marcelina Irizarry MD [email or web address] Obstetrics and Gynecology 11/13/18 documented as of this encounter Additional Source Comments The information contained in this document represents components of the legal health record. It is not the complete legal health record.[facility]
== END 2025-03-31 18:15 | disposition left against medical advice (07) ==
LOC: HO.ED 18:10
PROVIDERS: Nurse Practitioner Family; Emergency Provider Emergency Medicine
DX: M25.552 Pain in left hip (principal); R42 Dizziness and giddiness; Z79.899 Other long term (current) drug therapy
CPT/HCPCS: 36415; 73502; 80048; 80076; 83735; 85025; 99281; 99283

== ENCOUNTER → 2025-03-31 13:33 | Outpatient (BNV) | payer MEDICAID, SELFPAY | PROVIDERS: Visit Provider Radiology Diagnostic Radiology | DX: M25.552 Pain in left hip (principal) | CPT/HCPCS: 73502 ==